=== PATIENT | female | born 1995 | race Caucasian/White ===

== ENCOUNTER 2019-12-30 14:27 | Emergency (ER) | payer MEDICAID, SELFPAY ==
--- NOTE | 2019-12-30 | US_ITS ---
EXAMINATION: ULTRASOUND CLINICAL INFORMATION: Lower pelvic pain COMPARISON: Pelvic ultrasound 12/07/2011 TECHNIQUE: Transabdominal ultrasound was performed. FINDINGS: A gestational sac is present with a pole. The fetus was active during the course of the scan and a normal heart rate of 156 bpm was noted. Tye-rump length was 5.32 cm corresponding to a gestational age of 12 weeks 0 days with an JEANCARLOS of 07/13/2020. Neither ovary could be seen. No free fluid was detected. IMPRESSION: Active viable fetus with mean gestational age best estimated at 12 weeks with an JEANCARLOS of 07/13/2020
[2019-12-30 14:44] VITALS: BP 122/66; PULSE 101; RESP 18; TEMP 37; O2SAT 100; BMI 28.3
[2019-12-30 17:33] VITALS: BP 103/57; PULSE 72; RESP 18; TEMP 35.9; O2SAT 99
--- NOTE | 2019-12-30 17:50 | ED.FEMALEGU ---
HPI - Female Genitourinary General Chief complaint: Abdominal Pain Stated complaint: abd pain Time Seen by Provider: 12/30/19 17:48 Source: patient Mode of arrival: ambulatory Limitations: no limitations History of Present Illness HPI Narrative: patient 12 weeks [id number] noticed for last 2 days lower abdominal discomfort with nausea and diarrhea having 4-5 loose bowels a day, without any vaginal bleeding or significant discharge patient is 6 months vaginal delivery patient denies any urinary complaints Related Data Previous Rx's Medication Instructions Recorded ondansetron 4 mg PO Q6H PRN #20 tab 12/30/19 Allergies Allergy/AdvReac Type Severity Reaction Status Date / Time ceftriaxone [From Rocephin] Allergy Angioedema Verified 12/30/19 14:43 Review of Systems Review of Systems: REVIEW OF SYSTEMS: Pertinent positives and negatives are stated above in the history. GEN: no fevers, chills, fatigue HEENT: no nasal congestion, sore throat, ear pain NEURO: no headache, dizziness, focal weakness PULM: no cough, shortness of breath CV: no chest pain, palpitations, LE edema ABD: no vomiting : no dysuria, urgency, frequency SKIN: no rash ROS otherwise negative x 10 PMFSH Past Medical History Medical History Healthy adult Social History Social History Alcohol intake: current Smoked in Last 30 Days: No Use of substances other than those prescribed or required for medical reasons: No Advance Directives: No Advance Directives Information Provided: No Physical Exam Vital Signs and I&O and Narrative: Vital Signs and I&O: Vital Signs Temp 98.3 F 12/30/19 19:02 Pulse 69 12/30/19 19:02 Resp 16 12/30/19 19:02 BP 102/53 L 12/30/19 19:02 Pulse Ox 100 12/30/19 19:02 Intake & Output 12/30/19 12/30/19 12/31/19 06:59 18:59 06:59 Intake Total 1000 / 1000 Balance 1000 / 1000 Weight 68.039 kg Intake: Intake, IV Amoun t 1000 / 1000 0.9 % Sodium C hloride 1,000 ml 1000 / 1000 @ 999 mls/hr I VCONT .Q1H1M JAZMIN Rx#:[id number] Body Mass Index 28.3 VITAL SIGNS: Reviewed. GENERAL: Well developed, well nourished, in no acute distress. HEAD: Normocephalic/atraumatic, Posterior oropharynx was without edema, erythema or exudate. EYES: PERRLA,, EOMI intact , no nystagmus/pallor/icterus noted EARS: Ext canals without abnormality, TMs non-bulging and non-erythematous NOSE: Nares patent bilateral OROPHARYNX: no oral lesions noted, posterior pharynx clear and non-erythematous without noted tonsillar enlargement/erythema/exudates NECK: Supple, no adenopathy LUNGS: Normal breath sounds. No adventitious sounds or accessory muscle use. CARDIOVASCULAR: Regular rate and rhythm without noted murmurs, no JVD or lower extremity edema. ABDOMEN: Soft, non-tender, non-distended with bowel sounds. No rigidity. No guarding. No palpable masses or hernias noted MUSCULOSKELETAL: No tenderness, deformities, or effusions noted on gross inspection. EXTREMITIES: No cyanosis, clubbing or edema. SKIN: Inspection of the skin reveals no rashes, ulcerations, jaundice, pallor, or petechiae NEUROLOGIC: Alert and oriented x 3. Strength and sensation to light touch were grossly intact x 4. Course Course Course Narrative: patient ultrasound showed IUP 12 weeks workup otherwise is negative patient is A-positive blood type will discharge her home advised to follow-up with her OB doctor. Patient's symptoms likely from gastroenteritis secondary to diarrhea having the lower abdominal cramps patient received 1 L of IV bolus in the ER MDM - Female Genitourinary Lab Data Result diagrams: 12/30/19 17:57 12/30/19 18:38 Labs: Lab Results 12/30/19 12/30/19 12/30/19 Range/Units 17:57 17:57 18:38 WBC 8.0 (4.8-10.8) X10*3/uL RBC 4.13 L (4.20-5.50) X10*6/uL Hgb 12.8 (12.0-16.0) g/dl Hct 36.6 L (37-47) % MCV 88.6 (80-98) fL MCH 31.0 (27.0-33.0) pg MCHC 35.0 (31.0-35.0) g/dl RDW 12.2 (11.0-16.0) % Plt Count 225 (160-400) X10*3/uL MPV 10.6 (9.4-12.3) fL Immature Gran % (Auto) 0.3 (0.0-0.4) % Neut % (Auto) 70.2 (45-73) % Lymph % (Auto) 23.7 (20-40) % Collin % (Auto) 5.1 (2-11) % Eos % (Auto) 0.3 (0-4) % Baso % (Auto) 0.4 (0-2) % Neut # (Auto) 5.6 (2.0-8.3) X10*3/uL Lymph # (Auto) 1.9 (1.2-4.9) X10*3/uL [place]lin # (Auto) 0.4 (0.1-1.2) X10*3/uL Eos # (Auto) 0.0 (0.0-0.4) X10*3/uL Baso # (Auto) 0.0 (0.0-0.2) X10*3/uL Abs Immat Gran (auto) 0.02 (0.00-0.03) X10*3/uL Absolute Nucleated RBC 0.000 (0.0-0.012) X10*3/uL Nucleated RBC % (auto) 0.0 (0.0-0.2) /100WBC Hold Blue Top SEE NOTE Sodium 138 (135-145) mmol/L Potassium 3.8 (3.3-5.1) mmol/l Chloride 107 (96-108) mmol/L Carbon Dioxide 23 (22-29) mmol/L Anion Gap 12 (12-20) BUN 9 (9-16) mg/dL Creatinine 0.68 (0.5-1.4) mg/dL Estim Creat Clear Calc 112.5 Estimated GFR > 60 Random Glucose 71 (60-115) mg/dL Calcium 8.8 (8.4-10.2) mg/dL Total Bilirubin 0.7 (0.0-1.0) mg/dL AST 17 (5-31) U/L ALT 16 (0-31) U/L Alkaline Phosphatase 48 (39-117) U/L Total Protein 6.4 L (6.5-8.0) g/dL Albumin 3.7 (3.5-5.0) g/dL Beta HCG, Quant [id number] mIU/mL Urine Color Urine Appearance Urine pH (5.0-8.0) Ur Specific [place] (1.005-1.025) Urine Protein (NEG-TRACE) MG/DL Urine Glucose (UA) (NEG) MG/DL Urine Ketones (NEG) MG/DL Urine Blood (NEG) Urine Nitrite (NEG) Ur Leukocyte Esterase (NEG) 12/30/19 Range/Units 21:22 WBC (4.8-10.8) X10*3/uL RBC (4.20-5.50) X10*6/uL Hgb (12.0-16.0) g/dl Hct (37-47) % MCV (80-98) fL MCH (27.0-33.0) pg MCHC (31.0-35.0) g/dl RDW (11.0-16.0) % Plt Count (160-400) X10*3/uL MPV (9.4-12.3) fL Immature Gran % (Auto) (0.0-0.4) % Neut % (Auto) (45-73) % Lymph % (Auto) (20-40) % [place]lin % (Auto) (2-11) % Eos % (Auto) (0-4) % Baso % (Auto) (0-2) % Neut # (Auto) (2.0-8.3) X10*3/uL Lymph # (Auto) (1.2-4.9) X10*3/uL [place] # (Auto) (0.1-1.2) X10*3/uL Eos # (Auto) (0.0-0.4) X10*3/uL Baso # (Auto) (0.0-0.2) X10*3/uL Abs Immat Gran (auto) (0.00-0.03) X10*3/uL Absolute Nucleated RBC (0.0-0.012) X10*3/uL Nucleated RBC % (auto) (0.0-0.2) /100WBC Hold Blue Top Sodium (135-145) mmol/L Potassium (3.3-5.1) mmol/l Chloride (96-108) mmol/L Carbon Dioxide (22-29) mmol/L Anion Gap (12-20) BUN (9-16) mg/dL Creatinine (0.5-1.4) mg/dL Estim Creat Clear Calc Estimated GFR Random Glucose (60-115) mg/dL Calcium (8.4-10.2) mg/dL Total Bilirubin (0.0-1.0) mg/dL AST (5-31) U/L ALT (0-31) U/L Alkaline Phosphatase (39-117) U/L Total Protein (6.5-8.0) g/dL Albumin (3.5-5.0) g/dL Beta HCG, Quant mIU/mL Urine Color YELLOW Urine Appearance CLEAR Urine pH 6.0 (5.0-8.0) Ur Specific [place] 1.025 (1.005-1.025) Urine Protein NEG (NEG-TRACE) MG/DL Urine Glucose (UA) NEG (NEG) MG/DL Urine Ketones 40 (NEG) MG/DL Urine Blood NEG (NEG) Urine Nitrite NEG (NEG) Ur Leukocyte Esterase NEG (NEG) Discharge Plan Discharge Clinical Impression: Gastroenteritis, First trimester Patient Disposition: Home, Self-Care Instructions: Gastroenteritis (ED), Abdominal Pain in (ED) Prescriptions: New ondansetron 4 mg tablet,disintegrating 4 mg PO Q6H PRN (Reason: nausea and vomiting) Qty: 20 RF: 0 Referrals: Andrey Blackwood MD [Physician] - 2 days Interventions: ED Discharge Assessment Last Done: 12/30/19 22:01 Discharge Date/Time: 12/30/19 22:02
[2019-12-30 18:10] LABS: MANUAL DIFF FLAG NO
[2019-12-30 18:13] LABS: Basophils Percent Auto 0.4 % (0-2); Eosinophils Percent Auto 0.3 % (0-4); Hematocrit 36.6 % (37-47); Hemoglobin 12.8 g/dl (12.0-16.0); Imm Gran Abs Auto 0.02 X10*3/uL (0.00-0.03); Imm Gran Pct Auto 0.3 % (0.0-0.4); Lymphocytes Absolute Auto 1.9 X10*3/uL (1.2-4.9); Lymphocytes Percent Auto 23.7 % (20-40); Mean Corpuscular Volume 88.6 fL (80-98); Mean Platelet Volume 10.6 fL (9.4-12.3); Monocytes Absolute Auto 0.4 X10*3/uL (0.1-1.2); Monocytes Percent Auto 5.1 % (2-11); Neutrophils Absolute Auto 5.6 X10*3/uL (2.0-8.3); Neutrophils Percent Auto 70.2 % (45-73); Platelet Count 225 X10*3/uL (160-400); Red Blood Count 4.13 X10*6/uL (4.20-5.50); Red Cell Distribution Width 12.2 % (11.0-16.0)
[2019-12-30] MEDS: ondansetron HCL 4 MG/2 ML VIAL IVPUSH (19:01)
[2019-12-30] MEDS: 0.9 % Sodium Chloride 1,000 ML 999 ML IVCONT (19:01)
[2019-12-30 19:02] VITALS: BP 102/53; PULSE 69; RESP 16; TEMP 36.8; O2SAT 100
[2019-12-30 19:21] LABS: Alanine Aminotransferase 16 U/L (0-31); Albumin Level 3.7 g/dL (3.5-5.0); Alkaline Phosphatase 48 U/L (39-117); Anion Gap 12 (12-20); Aspartate Amino Transferase 17 U/L (5-31); Bilirubin Total 0.7 mg/dL (0.0-1.0); Blood Urea Nitrogen 9 mg/dL (9-16); Calcium 8.8 mg/dL (8.4-10.2); Carbon Dioxide 23 mmol/L (22-29); Chloride 107 mmol/L (96-108); Creatinine Clr Calc Pharmacy 112.5; Estimated Glomerular Filt Rate > 60; Glucose Random 71 mg/dL (60-115); Potassium 3.8 mmol/l (3.3-5.1); Sodium 138 mmol/L (135-145); Total Protein 6.4 g/dL (6.5-8.0)
--- NOTE | 2019-12-30 21:00 | PC.NURSE ---
PT TOERATING PO INTAKE W/OUT DIFFICULTY, NO COMPLAINTS ATT, PT AWAITING PROVIDER RE-EVAL AND DISPO.
[2019-12-30 21:29] LABS: Glucose Urine UA NEG (NEG); Leukocyte Esterase Urine NEG (NEG); Nitrite Urine NEG (NEG); Specific Gravity - Urine 1.025 (1.005-1.025); Urine Blood NEG (NEG); Urine Ketones 40 MG/DL (NEG); Urine Protein NEG (NEG-TRACE)
[2019-12-30 21:30] LABS: Appearance Urine CLEAR; Color Urine YELLOW; UACC Culture Trigger NO
== END 2019-12-30 22:02 | disposition home or self-care (01) ==
PROVIDERS: Emergency Provider Internal Medicine
DX: O99.611 Diseases of the digestive system complicating pregnancy, first trimester (principal)
CPT/HCPCS: 36415; 76801; 80053; 81003; 84702; 85025; 96361; 96374; 99284; J2405

== ENCOUNTER 2022-02-20 15:06 | Emergency (ER) | payer MEDICAID, SELFPAY ==
--- NOTE | 2022-02-20 16:58 | ED.GENADULT ---
HPI - General Adult General Chief complaint: Abdominal Pain <KELLEY Romo Last Filed: 02/20/22 16:59> Stated complaint: flu like symptoms <KELLEY Romo Last Filed: 02/20/22 16:59> Time Seen by Provider: 02/20/22 17:01 <KELLEY Romo Last Filed: 02/20/22 16:59> Source: patient <KELLEY Nichole Last Filed: 02/20/22 18:23> Mode of arrival: ambulatory <KELLEY Nichole Last Filed: 02/20/22 18:23> Limitations: no limitations <KELLEY Nichole Last Filed: 02/20/22 18:23> History of Present Illness HPI narrative: 26-year-old female presents to the ER for evaluation of diffuse abdominal pain, nausea, vomiting and diarrhea that started yesterday. She reports pain is in her entire abdomen, her lower pelvic area as well as her back. She just started her menses and has uterine cramping. She denies any vaginal discharge or concern for STI. She denies any dysuria, urgency or frequency. She states she has been nauseous with inability to eat for the last 2 days. She vomited twice yesterday, none today. She has been able to tolerate small amounts of Gatorade but then has to run to the bathroom to have diarrhea. No blood in her stool. No known sick contacts. He denies chance of , says she has a 4-month-old baby at home. <KELLEY Nichole Last Filed: 02/20/22 18:23> MD complaint: Abdominal pain along with nausea, vomiting and diarrhea <KELLEY Nichole Last Filed: 02/20/22 18:23> Onset (ago): day(s) (2) <KELLEY Nichole Last Filed: 02/20/22 18:23> Location: abdomen <KELLEY Nichole Last Filed: 02/20/22 18:23> Radiation: non-radiation <KELLEY Nichole Last Filed: 02/20/22 18:23> Severity: moderate <KELLEY Nichole Last Filed: 02/20/22 18:23> Quality: aching and other (cramping) <KELLEY Nichole Last Filed: 02/20/22 18:23> Pain Consistency: intermittent <KELLEY Nichole Last Filed: 02/20/22 18:23> Relieving factors: none <KELLEY Nichole Last Filed: 02/20/22 18:23> Exacerbating factors: none <KELLEY Nichole Last Filed: 02/20/22 18:23> Associated symptoms: loss of appetite, malaise, nausea/vomiting, weakness and other (body aches in legs) <KELLEY Nichole Last Filed: 02/20/22 18:23> Treatments prior to arrival: none <KELLEY Nichole Last Filed: 02/20/22 18:23> Related Data Home medications: Previous Rx's Medication Instructions Recorded ondansetron 4 mg disintegrating 4 mg PO Q6H PRN nausea and 12/30/19 tablet vomiting #20 tabs <KELLEY Romo Last Filed: 02/20/22 16:59> Allergies/adverse reactions: Allergies Allergy/AdvReac Type Severity Reaction Status Date / Time ceftriaxone [From Rocephin] Allergy Angioedema Verified 12/30/19 14:43 <KELLEY Romo Last Filed: 02/20/22 16:59> Review of Systems Review of Systems: Constitutional: No Fever, No Chills ENT/Mouth: No sore throat, No Rhinorrhea, No Swallowing Difficulty Eyes: No Eye Pain, No Swelling, No Redness Cardiovascular: No Chest Pain, No SOB, No Orthopnea, No Edema Respiratory: No Cough, No Sputum, No Wheezing, No dyspnea Gastrointestinal: + Nausea, + Vomiting, + Diarrhea, + abdominal Pain Genitourinary: No Dysuria, No Urinary Frequency, No Hematuria Musculoskeletal: No joint pain, + Myalgias Skin: No Skin Lesions, No rash Neuro: + Weakness, No Numbness, No Dizziness, No Headache Heme/Lymph: No Bruising, No Lymphadenopathy Endocrine: No Polyuria, No Polydipsia <KELLEY Nichole Last Filed: 02/20/22 18:23> [facility] Past Medical History Medical History: Medical History Healthy adult <KELLEY Romo Last Filed: 02/20/22 16:59> Social History Social History: Social History Alcohol intake: current Advance Directives: No Advance Directives Information Provided: No <KELLEY Romo Last Filed: 02/20/22 16:59> Physical Exam ED Vital Signs: Vital Signs - 24 hr 02/20/22 17:02 Temperature 98.5 F Pulse Rate 95 Respiratory Rate 18 Blood Pressure 112/75 Pulse Oximetry 100 Oxygen Delivery Method Room Air BMI result Body Mass Index 29.4 <KELLEY Romo - Last Filed: 02/20/22 16:59> Vital Signs - 24 hr 02/20/22 17:02 Temperature 98.5 F Pulse Rate 95 Respiratory Rate 18 Blood Pressure 112/75 Pulse Oximetry 100 Oxygen Delivery Method Room Air BMI result Body Mass Index 29.4 <KELLEY Nichole Last Filed: 02/20/22 18:23> Appearance: Alert. Oriented X3. No acute distress. Eyes: Pupils equal, round and reactive to light. ENT: Pharynx normal. Moist mucous membranes Neck: Normal inspection. Neck supple. CVS: Normal heart rate and rhythm. Pulses normal. Respiratory: No respiratory distress. Breath sounds normal. Abdomen: Soft with mild diffuse tenderness, no rebound or guarding. normal +BS x4. Pelvic deferred. No suprapubic tenderness. Skin: Skin warm and dry. Normal skin color. Normal skin turgor. No rashes. Extremities: No lower extremity edema. Neuro: Oriented X 3. Grossly normal, nonfocal <KELLEY Nichole Last Filed: 02/20/22 18:23> Course Reevaluation(s) Reevaluation #1: 26 year old female no pmhx presents w/ fatigue, malaise, subjective fevers & chills, abd pain, nausea, pelvic pain, and lower back pain PE benign Plan- patient will go to [facility] [place] here to grab her <KELLEY Romo - Last Filed: 02/20/22 16:59> Time: 16:59 <KELLEY Romo - Last Filed: 02/20/22 16:59> Reevaluation #2: Patient with multiple complaints including diffuse abdominal pain, nausea, vomiting, diarrhea x2 days. She is on her period. Denies chance of . Will get basic labs, check COVID, Flu, and hydrate with IVF, give zofran. Pelvic deferred, pain c/w period cramps. No vaginal discharge or concern for STI/PID. <KELLEY Nichole - Last Filed: 02/20/22 18:23> Time: 17:49 <KELLEY Nichole - Last Filed: 02/20/22 18:23> Reevaluation #3: Labs pending. IVF infusing. Will sign out to night provider. <KELLEY Nichole - Last Filed: 02/20/22 18:23> Time: 18:22 <KELLEY Nichole - Last Filed: 02/20/22 18:23> Medications Administered Generic Name Dose Route Start Last Admin Trade Name Freq PRN Reason Stop Dose Admin Sodium Chloride 1,000 mls @ 999 mls/hr 02/20/22 18:00 02/20/22 18:13 Ns IVCONT 02/20/22 19:00 999 mls/hr .Q1H1M JAZMIN Administration Discontinued Medications Generic Name Dose Route Start Last Admin Trade Name Freq PRN Reason Stop Dose Admin Ondansetron HCl 4 mg 02/20/22 17:46 02/20/22 18:11 Ondansetron Hcl 4 Mg/2 Ml Vial IVPUSH 02/20/22 17:47 4 mg ONCE ONE Administration <KELLEY Romo - Last Filed: 02/20/22 16:59> Medications Administered Generic Name Dose Route Start Last Admin Trade Name Freq PRN Reason Stop Dose Admin Sodium Chloride 1,000 mls @ 999 mls/hr 02/20/22 18:00 02/20/22 18:13 Ns IVCONT 02/20/22 19:00 999 mls/hr .Q1H1M JAZMIN Administration Discontinued Medications Generic Name Dose Route Start Last Admin Trade Name Freq PRN Reason Stop Dose Admin Ondansetron HCl 4 mg 02/20/22 17:46 02/20/22 18:11 Ondansetron Hcl 4 Mg/2 Ml Vial IVPUSH 02/20/22 17:47 4 mg ONCE ONE Administration <KELLEY Nichole Last Filed: 02/20/22 18:23> Medical Decision Making Lab Data Result diagrams: : 02/20/22 18:05 02/20/22 18:05 <KELLEY Romo Last Filed: 02/20/22 16:59> Critical Care Time Critical Care Time Critical Care Time: No <KELLEY Nichole Last Filed: 02/20/22 18:23> Discharge Plan Discharge Clinical Impression: Gastroenteritis <KELLEY Romo Last Filed: 02/20/22 16:59> Patient Disposition: Still a Patient <KELLEY Romo Last Filed: 02/20/22 16:59> Instructions: Gastroenteritis (ED) <KELLEY Romo Last Filed: 02/20/22 16:59> Additional Instructions: You lab workup today was unremarkable. Your urine test was negative for infection and . You most likely have a viral GI bug also known as gastroenteritis. Treatment is supportive care, symptoms usually resolve on their own in 48-72 hours. Recommend rest and plenty of oral hydration. Stick to a bland diet like soup and toast while you are not feeling well. Take the prescribed medication as needed for nausea. Recommend over the counter Pepto Bismol or Imodium for upset stomach and diarrhea. Follow up with your doctor as needed. If you develop new or worsening symptoms call 911 or come back to the ER for further evaluation. <KELLEY Romo Last Filed: 02/20/22 16:59> Prescriptions: No Action ondansetron 4 mg tablet,disintegrating 4 mg PO Q6H PRN (Reason: nausea and vomiting) Qty: 20 0RF <KELLEY Romo Last Filed: 02/20/22 16:59>
[2022-02-20 17:02] VITALS: BP 112/75; PULSE 95; RESP 18; TEMP 36.9; O2SAT 100; BMI 29.4
[2022-02-20 18:09] LABS: MANUAL DIFF FLAG NO
[2022-02-20] MEDS: ondansetron HCL 4 MG/2 ML VIAL IVPUSH (18:11)
[2022-02-20] MEDS: 0.9 % Sodium Chloride 1,000 ML 999 ML IVCONT (18:13)
[2022-02-20 18:28] LABS: Influenza A PCR NEGATIVE (Negative); Influenza B PCR NEGATIVE (Negative); Resp Syncy Virus RNA Qual PCR NEGATIVE (Negative); SARS COV2 PCR INHOUSE NEGATIVE (Negative)
[2022-02-20 18:30] LABS: Alanine Aminotransferase 23 U/L (0-31); Albumin Level 4.6 g/dL (3.5-5.0); Alkaline Phosphatase 68 U/L (39-117); Anion Gap 16 (12-20); Aspartate Amino Transferase 26 U/L (5-31); Bilirubin Direct 0.3 mg/dL (0.0-0.5); Bilirubin Total 0.8 mg/dL (0.0-1.0); Blood Urea Nitrogen 10 mg/dL (9-16); Calcium 9.8 mg/dL (8.4-10.2); Carbon Dioxide 20 mmol/L (22-29); Chloride 107 mmol/L (96-108); Creatinine Clr Calc Pharmacy 92.3; Estimated Glomerular Filt Rate > 60; Glucose Random 93 mg/dL (60-115); Lipase 36 U/L (8-78); Sodium 139 mmol/L (135-145)
[2022-02-20 18:31] LABS: Basophils Percent Auto 0.2 % (0-2); Hematocrit 45.6 % (37.0-47.0); Hemoglobin 14.7 g/dl (12.0-16.0); Imm Gran Abs Auto 0.01 X10*3/uL (0.00-0.03); Imm Gran Pct Auto 0.2 % (0.0-0.4); Lymphocytes Absolute Auto 0.8 X10*3/uL (1.2-4.9); Lymphocytes Percent Auto 20.2 % (20-40); Mean Corpuscular HGB Conc 32.2 g/dl (31.0-35.0); Mean Corpuscular Hemoglobin 28.2 pg (27.0-33.0); Mean Corpuscular Volume 87.4 fL (80.0-98.0); Mean Platelet Volume 10.5 fL (9.4-12.3); Monocytes Absolute Auto 0.2 X10*3/uL (0.1-1.2); Monocytes Percent Auto 5.7 % (2-11); Neutrophils Percent Auto 73.7 % (45-73); Platelet Count 206 X10*3/uL (160-400); Red Blood Count 5.22 X10*6/uL (4.20-5.50); Red Cell Distribution Width 13.1 % (11.0-16.0); White Blood Count 4.1 X10*3/uL (4.8-10.8)
[2022-02-20 18:37] LABS: UPreg QC Valid YES; Urine Pregnancy NEGATIVE (NEGATIVE)
[2022-02-20 18:40] LABS: Appearance Urine Clear; Color Urine Dark Yellow; Glucose Urine UA Negative (Negative); Leukocyte Esterase Urine Trace (Negative); Nitrite Urine Negative (Negative); UMIC TRIGGER UACC YES; Urine Blood Large (3+) (Negative); Urine Ketones Negative (Negative); Urine Protein 30 (1+) mg/dL (Neg-Trace)
[2022-02-20 18:41] LABS: Bacteria Urine Trace (None Seen); Hyaline Casts Urine 0-2 /LPF (0-2); RBC Urine >20 /HPF (0-2); UACC Culture Trigger YES
[2022-02-20] MEDS: Acetaminophen 325 MG TABLET 650 MG PO (18:58)
== END 2022-02-20 20:03 | disposition home or self-care (01) ==
PROVIDERS: Physician Assistant; Emergency Provider Internal Medicine
DX: K52.9 Noninfective gastroenteritis and colitis, unspecified (principal); R10.9 Unspecified abdominal pain; Z20.822 Contact with and (suspected) exposure to COVID-19
CPT/HCPCS: 0241U; 36415; 80048; 80076; 81001; 81025; 83690; 83735; 85025; 87086; 87147; 96374; 99284; J2405

== ENCOUNTER 2022-04-20 22:37 | Emergency (ER) | payer MEDICAID, SELFPAY ==
[2022-04-20 22:48] VITALS: BP 113/70; PULSE 107; RESP 18; TEMP 36.9; O2SAT 100; BMI 28.9
[2022-04-20 23:50] LABS: COVID-19 Test Negative (Negative); IDNOW Serial# 16C4AD1C; IDNOW Serial# BCCEAD1C; Influenza A Negative (Negative); Influenza B2 Negative (Negative)
--- NOTE | 2022-04-20 23:53 | ED.GENADULT ---
HPI - General Adult General Chief complaint: Nausea/Vomiting/Diarrhea Stated complaint: flu like symptoms Time Seen by Provider: 04/20/22 23:37 Source: patient Mode of arrival: ambulatory Limitations: no limitations History of Present Illness HPI narrative: Patient vomiting and having diarrhea since a.m. about 7-10 times each with diffuse abdominal cramps note recent travel no fever or chills no blood in the stool patient had cold symptoms 2 days ago much better now Related Data Previous Rx's Medication Instructions Recorded ondansetron 4 mg disintegrating 4 mg PO Q6H PRN nausea and 12/30/19 tablet vomiting #20 tabs dicyclomine 20 mg tablet 20 mg PO QID PRN abdominal pain 04/21/22 #20 tabs ondansetron 4 mg disintegrating 4 mg PO Q6-8H PRN nausea and 04/21/22 tablet vomiting #10 tabs Allergies Allergy/AdvReac Type Severity Reaction Status Date / Time ceftriaxone [From Rocephin] Allergy Angioedema Verified 12/30/19 14:43 Review of Systems Review of Systems: Yes all other systems are reviewed and are negative [facility] Past Medical History Medical History Healthy adult Social History Social History Alcohol intake: unknown Advance Directives: No Advance Directives Information Provided: No Physical Exam ED Vital Signs: Vital Signs - 24 hr 04/20/22 22:48 04/21/22 00:14 04/21/22 01:44 Temperature 98.4 F 98.3 F 98.3 F Pulse Rate 107 H 88 94 Respiratory Rate 18 14 16 Blood Pressure 113/70 117/68 103/52 L Pulse Oximetry 100 98 98 Oxygen Delivery Method Room Air Room Air Room Air BMI result Body Mass Index 28.9 Appearance: Alert. Oriented X3. No acute distress. Eyes: PERRLA, No Nystagmus ENT: Pharynx normal. Oral Mucosa moist Neck: Normal inspection. Neck supple. CVS: Normal heart rate and rhythm. Pulses normal. Respiratory: No respiratory distress. Equal air entry bilateral, no wheezing/rales/rhonchi Abdomen: Soft , diffuse abdominal tenderness. Bowel sounds are present, no mass palpable, no CVA tenderness Skin: Skin warm and dry. Normal skin color. Normal skin turgor. Extremities: No lower extremity edema. No calf tenderness Neuro: Oriented X 3. Medications Administered Discontinued Medications Generic Name Dose Route Start Last Admin Trade Name Niki PRN Reason Stop Dose Admin Dicyclomine HCl 20 mg 04/21/22 01:44 04/21/22 02:20 Dicyclomine Hcl 10 Mg Capsule PO 04/21/22 01:45 20 mg ONCE ONE Administration Loperamide HCl 2 mg 04/20/22 23:58 04/21/22 00:12 Loperamide Hcl 2 Mg Capsule PO 04/20/22 23:59 2 mg ONCE ONE Administration Ondansetron HCl 4 mg 04/20/22 23:58 04/21/22 00:12 Ondansetron Odt 4 Mg Tab.Rapdis TRANSLINGU 04/20/22 23:59 4 mg ONCE ONE Administration Medical Decision Making Medical Decision Making [facility] Narrative: Patient likely with viral gastroenteritis felt better after Zofran and Bentyl taking p.o. fluids will discharge patient home Lab Data Labs: Lab Results 04/20/22 04/20/22 04/21/22 Range/Units 23:31 23:31 01:29 Urine Color Yellow Urine Appearance Clear Urine pH 5.5 (5.0-9.0) Ur Specific [place] >= 1.030 H (1.005-1.025) Urine Protein Trace (Neg-Trace) mg/dL Urine Glucose (UA) Negative (Negative) mg/dL Urine Ketones Trace (Negative) mg/dL Urine Blood Small (1+) H (Negative) Urine Nitrite Negative (Negative) Ur Leukocyte Esterase Negative (Negative) Urine RBC 3-5 H (0-2) /HPF Urine WBC 0-5 (0-5) /HPF Ur Squamous Epith Cells 3-5 (0-2) /HPF Urine Bacteria None Seen (None Seen) Hyaline Casts 0-2 (0-2) /LPF COVID-19 (IAM) Negative (Negative) COVID-19 Clin Com See Note Influenza Type A (ARSH) Negative (Negative) Influenza Type B (ARSH) Negative (Negative) Influenza A & B Note See Note Discharge Plan Discharge Clinical Impression: Gastroenteritis Patient Disposition: Home, Self-Care Instructions: Gastroenteritis (ED) Additional Instructions: Drink plenty of fluids Medicine for the nausea as advised Bentyl for abdominal cramps Follow with PCP if any concerns Prescriptions: New dicyclomine 20 mg tablet 20 mg PO QID PRN (Reason: abdominal pain) Qty: 20 0RF ondansetron 4 mg tablet,disintegrating 4 mg PO Q6-8H PRN (Reason: nausea and vomiting) Qty: 10 0RF No Action ondansetron 4 mg tablet,disintegrating 4 mg PO Q6H PRN (Reason: nausea and vomiting) Qty: 20 0RF Stand Alone Forms: Work/School Release Interventions: ED Discharge Assessment Last Done: 04/21/22 02:26 Discharge Date/Time: 04/21/22 02:26
--- OUTSIDE RECORDS SUMMARY | 2022-04-20 23:58 | XMS_ITS | Continuity of Care Document ---
:1995 Author Organization [facility] Address [address] [place] [address] [address] [place] [address]- Care Team Providers Name Role Phone Not on Staff, PCP Primary Care Physician Unavailable Encounter [facility] Date(s): 08/12/21 - 09/11/[address] [place], [place] [address] Allergies, Adverse Reactions, Alerts Substance Reaction Severity Status Rocephin Active Immunizations Given and Recorded Vaccine Date Status Refusal Reason tetanus/diphtheria/pertussis, acel(Tdap) 08/18/21 Given Medications ferrous sulfate 325 mg oral enteric coated tablet 325 mg, 1, tablet, By Mouth, Daily, # 90 tablet, Refills 0, Tot. Refills 0, Maintenance, 08/28/21 17:19:00 EDT, Route to Pharmacy Electronically, [id number], Partial fill upon patient request if the prescription is for a schedule II o... Start Date: 08/28/21 Status: Orderedmultivitamin, Multivitamins oral tablet, chewable 1 tablet, Chew, Daily, # 90 tablet, 2 Refills, Maintenance, 08/03/21 14:02:00 EDT, Chew Tablet, [facility] #[id number], Partial fill upon patient request if the prescription is for a schedule II opioid drug., 1 tablet Chew Daily, 154.94, cm, 07/24... Start Date: 08/03/21 Status: OrderedPrenatal Multivitamins By Mouth, Daily, 0 Refills, Maintenance, 07/26/21 19:37:00 EDT, Partial fill upon patient request ifthe prescription is for a schedule II opioid drug. Start Date: 07/26/21 Status: Orderedprogesterone 200 mg oral capsule See Instructions, Place 1 capsule in the vagina every night, # 90 capsule, 1 Refills, Maintenance, 07/28/21 19:02:00 EDT, [facility] #[id number], 70.5, kg, 07/26/21 19:32:00 EDT, Dry Weight Start Date: 07/28/21 Status: Ordered Problem List Condition Effective Dates Status Health Status Informant History of section(Confirmed) Active History of delivery(Confirmed) Active Obese class I(Confirmed) Active COVID-19 vaccination Active declined(Confirmed) Social History Social History Type Response Smoking Status Never (less than 100 in life time) entered on: 07/26/21 Sex
--- OUTSIDE RECORDS SUMMARY | 2022-04-20 23:58 | XMS_ITS | Continuity of Care Document ---
:1995 Author Organization [facility] Address [address] [place] [address]- Care Team Providers Name Role Phone Not on Staff, PCP Primary Care Physician Unavailable [facility] Date[facility]): 09[facility] - 11/20/[address] [address]- Attending Physician: Not on Staff, Attending MD Allergies, Adverse Reactions, Alerts Substance Reaction Severity Status Rocephin destin Active Anaphylaxis Immunizations Given and Recorded Vaccine Date Status Refusal Reason tetanus/diphtheria/pertussis, acel(Tdap) 08/18/21 Given Medications ferrous sulfate 325 mg oral enteric coated tablet 325 mg, 1, tablet, By Mouth, Daily, # 90 tablet, Refills 0, Tot. Refills 0, Maintenance, 08/28/21 17:19:00 EDT, Route to Pharmacy Electronically, [facility] #[id number], Partial fill upon patient request if the prescription is for a schedule II o... Start Date: 08/28/21 Status: Orderedmultivitamin, Multivitamins oral tablet, chewable 1 tablet, Chew, Daily, # 90 tablet, 2 Refills, Maintenance, 08/03/21 14:02:00 EDT, Chew Tablet, [facility] #[id number], Partial fill upon patient request if the prescription is for a schedule II opioid drug., 1 tablet Chew Daily, 154.94, cm, 07/24... Start Date: 08/03/21 Status: Ordered Problem List Condition Effective Dates Status Health Status Informant History of section(Confirmed) Active History of delivery(Confirmed) Active Obese class I(Confirmed) Active COVID-19 vaccination Active declined(Confirmed) Social History Social History Type Response Smoking Status Never (less than 100 in life time) entered on: 07/26/21 Sex Care Team PersonnelName: Not on Staff, PCP
--- OUTSIDE RECORDS SUMMARY | 2022-04-20 23:58 | XMS_ITS | Continuity of Care Document ---
:1995 Author Organization [facility] Address [address] [place] [address]- Care Team Providers Name Role Phone Not on Staff, PCP Primary Care Physician Unavailable [facility] Date(s): 08/11/21 - 08/18/[address] [id number] Encounter Diagnosis Other specified related conditions, second trimester (Final) - Discharge Disposition: A-D/C Home Attending Physician: Keya Gomez MD Admitting Physician: Patricia ANTOINE, Keya Dey Allergies, Adverse Reactions, Alerts Substance Reaction Severity Status Rocephin Active Immunizations Given and Recorded Vaccine Date Status Refusal Reason tetanus/diphtheria/pertussis, acel(Tdap) 08/18/21 Given Medications multivitamin, Multivitamins oral tablet, chewable 1 tablet, Chew, Daily, # 90 tablet, 2 Refills, Maintenance, 08/03/21 14:02:00 EDT, Chew Tablet, [facility] #[id number], Partial fill upon patient request if the [...] capsule, 1 Refills, Maintenance, 07/28/21 19:02:00 EDT, [facility] #[id number], 70.5, kg, 07/26/21 19:32:00 EDT, Dry Weight Start Date: 07/28/21 Status: Ordered Problem List Condition Effective Dates Status Health Status Informant History of section(Confirmed) Active History of delivery(Confirmed) Active Obese class I(Confirmed) Active COVID-19 vaccination Active declined(Confirmed) Results Orders for Microbiology Reports Name Date Urine Culture 08/11/21 Microbiology Reports TEST:Urine Culture STATUS:Auth (Verified) BODY SITE: SOURCE:CLEAN COLLECTED DATE/TIME:08/11/21 5:19 PMUrine Culture SPECIMEN DESCRIPTION : CLEAN CATCH (URINE) SPECIAL REQUESTS : NONE CULTURE : NO GROWTH REPORT STATUS : FINAL 08/12/2021 Vital Signs Most recent to oldest [Reference Range]: 1 Weight 73.2 kg (08/11/21 4:38 PM) Oxygen Saturation [94-100 %] 100 % (08/11/21 5:09 PM) Blood Pressure [90-138/55-84 mm Hg] 108/54 mm Hg (08/11/21 5:09 PM) Respiratory Rate [16-30 br/min] 18 br/min (08/11/21 5:09 PM) Temperature [96.8-100.4 DegF] 98.6 DegF (08/11/21 4:38 PM) Mode of Delivery (Oxygen) Room air (08/11/21 5:09 PM) Blood pressure sites Arm, right (08/11/21 5:09 PM) Temperature Route Oral (08/11/21 4:38 PM) Weight Obtained Via Standing scale (08/11/21 4:38 PM) Social History Social History Type Response Smoking Status Never (less than 100 in life time) entered on: 07/26/21 Sex
--- OUTSIDE RECORDS SUMMARY | 2022-04-20 23:58 | XMS_ITS | Continuity of Care Document ---
:1995 Author Organization [facility] Address [address] [place] [address], [address] [place] [address]- Care Team Providers Name Role Phone Not on Staff, PCP Primary Care Physician Unavailable Encounter [facility] Date(s): 07/18/21 - 08/17/21 [facility] [address] [place] [address], [address] [place] [id number] Allergies, Adverse Reactions, Alerts Substance Reaction Severity Status Rocephin Active Medications multivitamin, Multivitamins oral tablet, chewable 1 tablet, Chew, Daily, # 90 tablet, 2 Refills, Maintenance, 08/03/21 14:02:00 EDT, Chew Tablet, [facility] #[id number], Partial fill upon patient request if the [...] capsule, 1 Refills, Maintenance, 07/28/21 19:02:00 EDT, [facility] #[id number], 70.5, kg, 07/26/21 19:32:00 EDT, Dry Weight Start Date: 07/28/21 Status: Ordered Problem List Condition Effective Dates Status Health Status Informant History of section(Confirmed) Active History of delivery(Confirmed) Active COVID-19 vaccination Active declined(Confirmed) Social History Social History Type Response Smoking Status Never (less than 100 in life time) entered on: 07/26/21 Sex
--- OUTSIDE RECORDS SUMMARY | 2022-04-20 23:58 | XMS_ITS | Continuity of Care Document ---
:1995 Author Organization [facility] Address [address] [place] [address]- Care Team Providers Name Role Phone Not on Staff, PCP Primary Care Physician Unavailable [facility] Date[facility]s): 10/12/21 - 10/14/[address] [address] Discharge Disposition: A-D/C Home Attending Physician: Dolores Giron MD Admitting Physician: Dolores Giron MD Referring Physician: Dolores Giron MD Allergies, Adverse Reactions, Alerts Substance Reaction Severity Status Rocephin Active Immunizations Given and Recorded Vaccine Date Status Refusal Reason tetanus/diphtheria/pertussis, acel(Tdap) 08/18/21 Given Medications ferrous sulfate 325 mg oral enteric coated tablet 325 mg, 1, tablet, By Mouth, Daily, # 90 tablet, Refills 0, Tot. Refills 0, Maintenance, 08/28/21 17:19:00 EDT, Route to Pharmacy Electronically, [facility] #[id number], Partial fill upon patient request if the prescription is for a schedule II o... Start Date: 08/28/21 Status: OrderedIbuprofen Tablet 800 mg, Tablet, By Mouth, Every 8 hours, PRN for Pain , Moderate, (4-6), may give 400mg per patient preference and re-dose with 400mg within 8 hours if needed. Patient should only receive a total of 800mg of Ibuprofen every 8 hours., Routine, ... Start Date: 10/12/21 Stop Date: 10/15/21 Status: Discontinuedmultivitamin, Multivitamins oral tablet, chewable 1 tablet, Chew, Daily, # 90 tablet, 2 Refills, Maintenance, 08/03/21 14:02:00 EDT, Chew Tablet, [facility][id number], Partial fill upon patient request if the prescription is for a schedule II opioid drug., 1 tablet Chew Daily, 154.94, cm, 07/24... Start Date: 08/03/21 Status: Ordered Problem List Condition Effective Dates Status Health Status Informant History of section(Confirmed) Active History of delivery(Confirmed) Active Obese class I(Confirmed) Active COVID-19 vaccination Active declined(Confirmed) Vital Signs Most recent to oldest 1 2 3 [Reference Range]: Height 155 cm 155 cm 155 cm (10/13/21 11:36 PM) (10/12/21 6:20 AM) (10/11/21 9: 04 PM) Weight 74.3 kg 74.3 kg (10/12/21 6:20 AM) (10/11/21 8:45 PM) Oxygen Saturation [94-100 %] 100 % 98 % 99 % (10/14/21 7:49 AM) (10/13/21 11:36 PM) (10/13/21 4: 30 PM) Pulse Rate [55-90 bpm] 52 bpm 85 bpm 72 bpm *L* (10/13/21 11:36 PM) (10/13/21 4:30 PM) (10/14/21 7:49 AM) Body Mass Index [18.5-24.99] 30.93 *>HHI* (10/12/21 6:20 AM) Blood Pressure [90-138/55-84 107/63 mm Hg 106/57 mm Hg 118 /78 mm Hg mm Hg] (10/14/21 7:49 AM) (10/13/21 11:36 PM) (10/13/21 4: 30 PM) Respiratory Rate [16-30 16 br/min 16 br/min 16 br/mi n br/min] (10/14/21 8:06 AM) (10/14/21 7:49 AM) (10/14/21 3:0 0 AM) Temperature [96.8-100.4 DegF] 97.9 DegF 98.8 DegF 98 .3 DegF (10/14/21 7:49 AM) (10/13/21 11:36 PM) (10/13/21 9: 00 AM) Mode of Delivery (Oxygen) Room air Room air Room a ir (10/13/21 4:30 PM) (10/13/21 9:00 AM) (10/12/21 9:1 5 PM) Blood pressure sites Arm, left Arm, left Arm, left (10/13/21 11:36 PM) (10/13/21 4:30 PM) (10/13/21 9: 00 AM) Temperature Route Oral Oral Oral (10/14/21 7:49 AM) (10/13/21 11:36 PM) (10/13/21 9: 00 AM) Dry Weight 74.3 kg 74.3 kg (10/12/21 6:20 AM) (10/11/21 8:45 PM) Weight Obtained Via Standing scale Standing scale (10/12/21 6:20 AM) (10/11/21 8:45 PM) Dry Weight Obtained Via Standing scale Standing scale (10/12/21 6:20 AM) (10/11/21 8:45 PM) Social History Social History Type Response Smoking Status Never (less than 100 in life time) entered on: 07/26/21 Sex Female
--- OUTSIDE RECORDS SUMMARY | 2022-04-20 23:58 | XMS_ITS | Continuity of Care Document ---
:1995 Author Organization [facility] Address [address] [place] [address]- Care Team Providers Name Role Phone Not on Staff, PCP Primary Care Physician Unavailable [facility] Date(s): 08/12/21 - 09/11/21 [facility] [address] [place] [address] Attending Physician: Salazar Marin Admitting Physician: Salazar Marin Referring Physician: AdmtrSalazar Allergies, Adverse Reactions, Alerts Substance Reaction Severity Status Rocephin Active Immunizations Given and Recorded Vaccine Date Status Refusal Reason tetanus/diphtheria/pertussis, acel(Tdap) 08/18/21 Given Medications ferrous sulfate 325 mg oral enteric coated tablet 325 mg, 1, tablet, By Mouth, Daily, # 90 tablet, Refills 0, Tot. Refills 0, Maintenance, 08/28/21 17:19:00 EDT, Route to Pharmacy Electronically, [facility] #[id number], Partial fill upon patient request if the prescription is for a schedule II o... Start Date: 08/28/21 Status: Orderedmultivitamin, Multivitamins oral tablet, chewable 1 tablet, Chew, Daily, # 90 tablet, 2 Refills, Maintenance, 08/03/21 14:02:00 EDT, Chew Tablet, [facility] #[id number], Partial fill upon patient request if the [...] capsule, 1 Refills, Maintenance, 07/28/21 19:02:00 EDT, [facility] #[id number], 70.5, kg, 07/26/21 19:32:00 EDT, Dry Weight Start Date: 07/28/21 Status: Ordered Problem List Condition Effective Dates Status Health Status Informant History of section(Confirmed) Active History of delivery(Confirmed) Active Obese class I(Confirmed) Active COVID-19 vaccination Active declined(Confirmed) Social History Social History Type Response Smoking Status Never (less than 100 in life time) entered on: 07/26/21 Sex
--- OUTSIDE RECORDS SUMMARY | 2022-04-20 23:58 | XMS_ITS | Continuity of Care Document ---
:1995 Author Organization [facility] Address [address] [place] [address]- Care Team Providers Name Role Phone Not on Staff, PCP Primary Care Physician Unavailable [facility] Date(s): 12/05/21 - 01/04/[address] [address] Allergies, Adverse Reactions, Alerts Substance Reaction Severity Status Rocephin destin Active Anaphylaxis Immunizations Given and Recorded Vaccine Date Status Refusal Reason tetanus/diphtheria/pertussis, acel(Tdap) 08/18/21 Given Medications multivitamin, Multivitamins oral tablet, chewable 1 tablet, Chew, Daily, # 90 tablet, 2 Refills, Maintenance, 08/03/21 14:02:00 EDT, Chew Tablet, [facility] #[id number], Partial fill upon patient request if the prescription is for a schedule II opioid drug., 1 tablet Chew Daily, 154.94, cm, 07/24... Start Date: 08/03/21 Status: Ordered Problem List Condition Confirmation Course Effective Dates Status Health Stat Informant History of Confirmed Active section History of Confirmed Active delivery COVID-19 Confirmed Active vaccination declined Social History Social History Type Response Smoking Status Never (less than 100 in life time) entered on: 07/26/21 Sex Patient Care team information PersonnelName: Not on Staff, PCP
--- OUTSIDE RECORDS SUMMARY | 2022-04-20 23:58 | XMS_ITS | Continuity of Care Document ---
:1995 Author Organization [facility] Address [address] [place] [address]- Care Team Providers Name Role Phone Not on Staff, PCP Primary Care Physician Unavailable Encounter [facility] Date(s): 08/26/21 - 08/27/[address] [address] Discharge Disposition: A-D/C Home Attending Physician: Chepe Xiong MD Admitting Physician: Chepe Xiong MD Referring Physician: Chepe Xiong MD Allergies, Adverse Reactions, Alerts Substance Reaction Severity Status Rocephin Active Immunizations Given and Recorded Vaccine Date Status Refusal Reason tetanus/diphtheria/pertussis, acel(Tdap) 08/18/21 Given Medications multivitamin, Multivitamins oral tablet, chewable 1 tablet, Chew, Daily, # 90 tablet, 2 Refills, Maintenance, 08/03/21 14:02:00 EDT, Chew Tablet, [facility] #[id number], Partial fill upon patient request if the [...] capsule, 1 Refills, Maintenance, 07/28/21 19:02:00 EDT, [facility] #[id number], 70.5, kg, 07/26/21 19:32:00 EDT, Dry Weight Start Date: 07/28/21 Status: Ordered Problem List Condition Effective Dates Status Health Status Informant History of section(Confirmed) Active History of delivery(Confirmed) Active COVID-19 vaccination Active declined(Confirmed) Vital Signs Most recent to oldest [Reference 1 2 3 Range]: Height 155 cm 155 cm (08/26/21 9:00 PM) (08/26/21 2:33 PM) Weight 72 kg 72.0 kg (08/26/21 9:00 PM) (08/26/21 2:33 PM) Oxygen Saturation [94-100 %] 100 % 99 % 99 % (08/27/21 10:09 PM) (08/27/21 1:04 PM) (08/27/21 8:38 AM) Pulse Rate [55-90 bpm] 71 bpm (08/26/21 9:00 PM) Body Mass Index [18.5-24.99] 29.97 29.97 *H* *H* (08/26/21 9:00 PM) (08/26/21 2:33 PM) Blood Pressure [90-138/55-84 mm 111/69 mm Hg 113/57 mm Hg 111/59 mm Hg Hg] (08/27/21 10:09 PM) (08/27/21 8:15 PM) (08/27/21 4:20 PM) Respiratory Rate [16-30 br/min] 18 br/min 18 br/min 16 br/min (08/27/21 4:20 PM) (08/27/21 1:04 PM) (08/27/21 8:38 A M) Temperature [96.8-100.4 DegF] 98.9 DegF 98.9 DegF 98 .9 DegF (08/27/21 10:09 PM) (08/27/21 8:15 PM) (08/27/21 4:20 PM) Mode of Delivery (Oxygen) Room air (08/26/21 9:00 PM) Blood pressure sites Arm, right (08/26/21 9:00 PM) Temperature Route Oral Oral Oral (08/27/21 10:09 PM) (08/27/21 8:15 PM) (08/27/21 4:20 PM) Dry Weight 72 kg 72.0 kg (08/26/21 9:00 PM) (08/26/21 2:33 PM) Weight Obtained Via Standing scale (08/26/21 2:33 PM) Dry Weight Obtained Via Standing scale (08/26/21 2:33 PM) Social History Social History Type Response Smoking Status Never (less than 100 in life time) entered on: 07/26/21 Sex
--- OUTSIDE RECORDS SUMMARY | 2022-04-20 23:58 | XMS_ITS | Continuity of Care Document ---
:1995 Author Organization [facility] Address [address] [place] [address] [address] [place] [address]- Care Team Providers Name Role Phone Not on Staff, PCP Primary Care Physician Unavailable [facility] Date(s): 09/05/21 - 09/12/21 [facility] [address] [place], [place] [address] Attending Physician: Champ Carl MD Referring Physician: Not on Staff, Referring MD Allergies, Adverse Reactions, Alerts Substance Reaction Severity Status Rocephin Active Immunizations Given and Recorded Vaccine Date Status Refusal Reason tetanus/diphtheria/pertussis, acel(Tdap) 08/18/21 Given Medications ferrous sulfate 325 mg oral enteric coated tablet 325 mg, 1, tablet, By Mouth, Daily, # 90 tablet, Refills 0, Tot. Refills 0, Maintenance, 08/28/21 17:19:00 EDT, Route to Pharmacy Electronically, [facility] #[id number], Partial fill upon patient request if the prescription is for a schedule II o... Start Date: 08/28/21 Status: Orderedmultivitamin, Multivitamins oral tablet, chewable 1 tablet, Chew, Daily, # 90 tablet, 2 Refills, Maintenance, 08/03/21 14:02:00 EDT, Chew Tablet, [facility] #[id number], Partial fill upon patient request if the [...] capsule, 1 Refills, Maintenance, 07/28/21 19:02:00 EDT, [facility] #[id number], 70.5, kg, 07/26/21 19:32:00 EDT, Dry Weight Start Date: 07/28/21 Status: Ordered Problem List Condition Effective Dates Status Health Status Informant History of section(Confirmed) Active History of delivery(Confirmed) Active Obese class I(Confirmed) Active COVID-19 vaccination Active declined(Confirmed) Vital Signs Most recent to oldest [Reference Range]: 1 Height 155 cm (09/05/21 10:41 AM) Weight 72.6 kg (09/05/21 10:41 AM) Body Mass Index [18.5-24.99] 30.22 *>HHI* (09/05/21 10:41 AM) Social History Social History Type Response Smoking Status Never (less than 100 in life time) entered on: 07/26/21 Sex
--- OUTSIDE RECORDS SUMMARY | 2022-04-20 23:58 | XMS_ITS | Continuity of Care Document ---
:1995 Author Organization [facility] Address [address] [place] [address]- Care Team Providers Name Role Phone Not on Staff, PCP Primary Care Physician Unavailable Encounter [facility] Date(s): 07/26/21 - 07/26/[address] [address]- Discharge Disposition: [facility]red [facility]term [facility] Attending Physician: Atif Soto MD Admitting Physician: Atif Soto MD Referring Physician: Not on Staff, Referring MD Allergies, Adverse Reactions, Alerts Substance Reaction Severity Status Rocephin Active Medications Multivitamins By Mouth, Daily, 0 Refills, Maintenance, 07/26/21 19:37:00 EDT, Partial fill upon patient request ifthe prescription is for a schedule II opioid drug. Start Date: 07/26/21 Status: Ordered Problem List Condition Effective Dates Status Health Status Informant History of section(Confirmed) Active History of delivery(Confirmed) Active Vital Signs Most recent to oldest [Reference Range]: 1 2 Oxygen Saturation [94-100 %] 98 % 100 % (07/26/21 6:39 PM) (07/26/21 6:28 PM) Pulse Rate [55-90 bpm] 84 bpm 107 bpm (07/26/21 6:39 PM) *H* (07/26/21 6:28 PM) Blood Pressure [90-138/55-84 mm Hg] 113/73 mm Hg (07/26/21 6:39 PM) Respiratory Rate [16-30 br/min] 16 br/min (07/26/21 6:39 PM) Temperature [96.8-100.4 DegF] 97.9 DegF (07/26/21 6:39 PM) Mode of Delivery (Oxygen) Room air Room air (07/26/21 6:39 PM) (07/26/21 6:28 PM) Blood pressure sites Arm, left (07/26/21 6:39 PM) Temperature Route Oral (07/26/21 6:39 PM) Social History Social History Type Response Smoking Status Never (less than 100 in life time) entered on: 07/26/21 Sex
--- OUTSIDE RECORDS SUMMARY | 2022-04-20 23:58 | XMS_ITS | Continuity of Care Document ---
:1995 Author Organization [facility] Address [address] [place] [address]- Care Team Providers Name Role Phone Not on Staff, PCP Primary Care Physician Unavailable [facility] Date(s): 10/31/21 - 11/30/[address] [address] Allergies, Adverse Reactions, Alerts Substance Reaction Severity Status Rocephin destin Active Anaphylaxis Immunizations Given and Recorded Vaccine Date Status Refusal Reason tetanus/diphtheria/pertussis, acel(Tdap) 08/18/21 Given Medications multivitamin, Multivitamins oral tablet, chewable 1 tablet, Chew, Daily, # 90 tablet, 2 Refills, Maintenance, 08/03/21 14:02:00 EDT, Chew Tablet, [facility] #[id number], Partial fill upon patient request if the [...]
--- OUTSIDE RECORDS SUMMARY | 2022-04-20 23:58 | XMS_ITS | Continuity of Care Document ---
:1995 Author Organization [facility] Address [address] [place] [id number]- Care Team Providers Name Role Phone Not on Staff, PCP Primary Care Physician Unavailable [facility]counter [facility] Date(s): 08/26/21 - 09/25/[address] [address] Allergies, Adverse Reactions, Alerts Substance Reaction Severity Status Rocephin Active Immunizations Given and Recorded Vaccine Date Status Refusal Reason tetanus/diphtheria/pertussis, acel(Tdap) 08/18/21 Given Medications ferrous sulfate 325 mg oral enteric coated tablet 325 mg, 1, tablet, By Mouth, Daily, # 90 tablet, Refills 0, Tot. Refills 0, Maintenance, 08/28/21 17:19:00 EDT, Route to Pharmacy Electronically, [facility] #[id number], Partial fill upon patient request if the prescription is for a schedule II o... Start Date: 08/28/21 Status: Orderedmultivitamin, Multivitamins oral tablet, chewable 1 tablet, Chew, Daily, # 90 tablet, 2 Refills, Maintenance, 08/03/21 14:02:00 EDT, Chew Tablet, [facility] #[id number], Partial fill upon patient request if the [...] capsule, 1 Refills, Maintenance, 07/28/21 19:02:00 EDT, [facility] #[id number], 70.5, kg, 07/26/21 19:32:00 EDT, Dry Weight Start Date: 07/28/21 Status: Ordered Problem List Condition Effective Dates Status Health Status Informant History of section(Confirmed) Active History of delivery(Confirmed) Active Obese class I(Confirmed) Active COVID-19 vaccination Active declined(Confirmed) Social History Social History Type Response Smoking Status Never (less than 100 in life time) entered on: 07/26/21 Sex
--- OUTSIDE RECORDS SUMMARY | 2022-04-20 23:58 | XMS_ITS | Continuity of Care Document ---
:1995 Author Organization [facility] Address [address] [place] [address] [address] [place] [address]- Care Team Providers Name Role Phone Not on Staff, PCP Primary Care Physician Unavailable [facility] Date(s): 10/04/21 - 11/03/[address] [place], [place] [address] Allergies, Adverse Reactions, Alerts Substance Reaction Severity Status Rocephin destin Active Anaphylaxis Immunizations Given and Recorded Vaccine Date Status Refusal Reason tetanus/diphtheria/pertussis, acel(Tdap) 08/18/21 Given Medications erythromycin 500 mg oral tablet 1 tablet = 500 mg, By Mouth, Every 12 hours, for 10 days, # 20 tablet, 0 Refills, Acute 11/10/21 15:15:00 EDT, 10/31/21 15:15:00 EDT, Tablet, [facility][id number], Partial fill upon patient request if the prescription is for a schedule II opioi... Start Date: 10/31/21 Stop Date: 11/10/21 Status: Orderedferrous sulfate 325 mg oral enteric coated tablet 325 mg, 1, tablet, By Mouth, Daily, # 90 tablet, Refills 0, Tot. Refills 0, Maintenance, 08/28/21 17:19:00 EDT, Route to Pharmacy Electronically, [facility] #[id number], Partial fill upon patient request if the prescription is for a schedule II o... Start Date: 08/28/21 Status: Orderedmultivitamin, Multivitamins oral tablet, chewable 1 tablet, Chew, Daily, # 90 tablet, 2 Refills, Maintenance, 08/03/21 14:02:00 EDT, Chew Tablet, [facility] #[id number], Partial fill upon patient request if the [...]
--- OUTSIDE RECORDS SUMMARY | 2022-04-20 23:58 | XMS_ITS | Continuity of Care Document ---
:1995 Author Organization [facility] Address [address] [place] [address]- Care Team Providers Name Role Phone Not on Staff, PCP Primary Care Physician Unavailable Encounter [facility] Date(s): 08/11/21 - 09/10/[address] [address] Allergies, Adverse Reactions, Alerts Substance Reaction Severity Status Rocephin Active Immunizations Given and Recorded Vaccine Date Status Refusal Reason tetanus/diphtheria/pertussis, acel(Tdap) 08/18/21 Given Medications ferrous sulfate 325 mg oral enteric coated tablet 325 mg, 1, tablet, By Mouth, Daily, # 90 tablet, Refills 0, Tot. Refills 0, Maintenance, 08/28/21 17:19:00 EDT, Route to Pharmacy Electronically, [facility] #[id number], Partial fill upon patient request if the prescription is for a schedule II o... Start Date: 08/28/21 Status: Orderedmultivitamin, Multivitamins oral tablet, chewable 1 tablet, Chew, Daily, # 90 tablet, 2 Refills, Maintenance, 08/03/21 14:02:00 EDT, Chew Tablet, [facility] #[id number], Partial fill upon patient request if the [...] capsule, 1 Refills, Maintenance, 07/28/21 19:02:00 EDT, [facility] #[id number], 70.5, kg, 07/26/21 19:32:00 EDT, Dry Weight Start Date: 07/28/21 Status: Ordered Problem List Condition Effective Dates Status Health Status Informant History of section(Confirmed) Active History of delivery(Confirmed) Active Obese class I(Confirmed) Active COVID-19 vaccination Active declined(Confirmed) Social History Social History Type Response Smoking Status Never (less than 100 in life time) entered on: 07/26/21 Sex
--- OUTSIDE RECORDS SUMMARY | 2022-04-20 23:58 | XMS_ITS | Continuity of Care Document ---
:1995 Author Organization [facility] Address [address] [place] [address]- Care Team Providers Name Role Phone Not on Staff, PCP Primary Care Physician Unavailable [place] [facility] [place] - 08/27/[address] [address] Allergies, Adverse Reactions, Alerts Substance Reaction Severity Status Rocephin Active Immunizations Given and Recorded Vaccine Date Status Refusal Reason tetanus/diphtheria/pertussis, acel(Tdap) 08/18/21 Given Medications multivitamin, Multivitamins oral tablet, chewable 1 tablet, Chew, Daily, # 90 tablet, 2 Refills, Maintenance, 08/03/21 14:02:00 EDT, Chew Tablet, [facility] #[id number], Partial fill upon patient request if the [...] capsule, 1 Refills, Maintenance, 07/28/21 19:02:00 EDT, [facility] #[id number], 70.5, kg, 07/26/21 19:32:00 EDT, Dry Weight Start Date: 07/28/21 Status: Ordered Problem List Condition Effective Dates Status Health Status Informant History of section(Confirmed) Active History of delivery(Confirmed) Active COVID-19 vaccination Active declined(Confirmed) Social History Social History Type Response Smoking Status Never (less than 100 in life time) entered on: 07/26/21 Sex
--- OUTSIDE RECORDS SUMMARY | 2022-04-20 23:58 | XMS_ITS | Continuity of Care Document ---
:1995 Author Organization [facility] Address [address] [place] [address]- Care Team Providers Name Role Phone Not on Staff, PCP Primary Care Physician Unavailable [place] [facility] [place] 08/18/21 - 11/12/[address] [address]- Attending Physician: Not on Staff, Attending MD [...] 08/28/21 17:19:00 EDT, Route to Pharmacy Electronically, [facility] #[id number], Partial fill upon patient request if the prescription is for a schedule II o... Start Date: 08/28/21 Status: Orderedmultivitamin, Multivitamins oral tablet, chewable 1 tablet, Chew, Daily, # 90 tablet, 2 Refills, Maintenance, 08/03/21 14:02:00 EDT, Chew Tablet, [facility] #[id number], Partial fill upon patient request if the [...]
--- OUTSIDE RECORDS SUMMARY | 2022-04-20 23:58 | XMS_ITS | Continuity of Care Document ---
:1995 Author Organization [facility] Address [address] [place] [address]- Care Team Providers Name Role Phone Not on Staff, PCP Primary Care Physician Unavailable Encounter [facility] [place] Date(s): 01/17/22 - 02/16/[address] [address] Allergies, Adverse Reactions, Alerts Substance Reaction Severity Status Rocephin destin Active Anaphylaxis Immunizations Given and Recorded Vaccine Date Status Refusal Reason tetanus/diphtheria/pertussis, acel(Tdap) 08/18/21 Given Medications multivitamin, Multivitamins oral tablet, chewable 1 tablet, Chew, Daily, # 90 tablet, 2 Refills, Maintenance, 08/03/21 14:02:00 EDT, Chew Tablet, [facility] #[id number], Partial fill upon patient request if the [...] on: 07/26/21 Sex Patient Care team information Care Team PersonnelName: Not on Staff, PCP Position: S Physician (General Medicine) Member Role: PCP Care Team Related PersonsName: LINO WOLFEVALENTE Address: home [address] [place] [address] Name: SUYAPANAKUL Address: [address] Address: home [address] [place] [address]
--- OUTSIDE RECORDS SUMMARY | 2022-04-20 23:58 | XMS_ITS | Continuity of Care Document ---
:1995 Author Organization [facility] Address [address] [place] [address]- Care Team Providers Name Role Phone Not on Staff, PCP Primary Care Physician Unavailable Encounter [facility] Date(s): 10/11/21 - 11/10/[address] [address] Allergies, Adverse Reactions, Alerts Substance Reaction Severity Status Rocephin destin Active Anaphylaxis Immunizations Given and Recorded Vaccine Date Status Refusal Reason tetanus/diphtheria/pertussis, acel(Tdap) 08/18/21 Given Medications ferrous sulfate 325 mg oral enteric coated tablet 325 mg, 1, tablet, By Mouth, Daily, # 90 tablet, Refills 0, Tot. Refills 0, Maintenance, 08/28/21 17:19:00 EDT, Route to Pharmacy Electronically, [facility] #[id number], Partial fill upon patient request if the prescription is for a schedule II o... Start Date: 08/28/21 Status: Orderedmultivitamin, Multivitamins oral tablet, chewable 1 tablet, Chew, Daily, # 90 tablet, 2 Refills, Maintenance, 08/03/21 14:02:00 EDT, Chew Tablet, [facility] #[id number], Partial fill upon patient request if the [...]
--- OUTSIDE RECORDS SUMMARY | 2022-04-20 23:58 | XMS_ITS | Continuity of Care Document ---
:1995 Author Organization [facility] Address [address] [place] [address]- Care Team Providers Name Role Phone Not on Staff, PCP Primary Care Physician Unavailable Encounter [facility] [place] Date(s): 08/12/21 - 09/11/21 [facility] [address] [place] [address] Allergies, Adverse Reactions, Alerts Substance Reaction Severity Status Rocephin Active Immunizations Given and Recorded Vaccine Date Status Refusal Reason tetanus/diphtheria/pertussis, acel(Tdap) 08/18/21 Given Medications ferrous sulfate 325 mg oral enteric coated tablet 325 mg, 1, tablet, By Mouth, Daily, # 90 tablet, Refills 0, Tot. Refills 0, Maintenance, 08/28/21 17:19:00 EDT, Route to Pharmacy Electronically, [facility] #[id number], Partial fill upon patient request if the prescription is for a schedule II o... Start Date: 08/28/21 Status: Orderedmultivitamin, Multivitamins oral tablet, chewable 1 tablet, Chew, Daily, # 90 tablet, 2 Refills, Maintenance, 08/03/21 14:02:00 EDT, Chew Tablet, [facility] #[id number], Partial fill upon patient request if the [...] capsule, 1 Refills, Maintenance, 07/28/21 19:02:00 EDT, [facility] #[id number], 70.5, kg, 07/26/21 19:32:00 EDT, Dry Weight Start Date: 07/28/21 Status: Ordered Problem List Condition Effective Dates Status Health Status Informant History of section(Confirmed) Active History of delivery(Confirmed) Active Obese class I(Confirmed) Active COVID-19 vaccination Active declined(Confirmed) Social History Social History Type Response Smoking Status Never (less than 100 in life time) entered on: 07/26/21 Sex
--- OUTSIDE RECORDS SUMMARY | 2022-04-20 23:58 | XMS_ITS | Continuity of Care Document ---
:1995 Author Organization [facility] Address Unavailable , Care Team Providers Name Role Phone Not on Staff, PCP Primary Care Physician Unavailable Encounter [facility] [place] Date(s): 08/12/21 - 09/11/21 [facility] Allergies, Adverse Reactions, Alerts Substance Reaction Severity Status Rocephin Active Immunizations Given and Recorded Vaccine Date Status Refusal Reason tetanus/diphtheria/pertussis, acel(Tdap) 08/18/21 Given Medications ferrous sulfate 325 mg oral enteric coated tablet 325 mg, 1, tablet, By Mouth, Daily, # 90 tablet, Refills 0, Tot. Refills 0, Maintenance, 08/28/21 17:19:00 EDT, Route to Pharmacy Electronically, [facility] #[id number], Partial fill upon patient request if the prescription is for a schedule II o... Start Date: 08/28/21 Status: Orderedmultivitamin, Multivitamins oral tablet, chewable 1 tablet, Chew, Daily, # 90 tablet, 2 Refills, Maintenance, 08/03/21 14:02:00 EDT, Chew Tablet, [facility] #[id number], Partial fill upon patient request if the [...] capsule, 1 Refills, Maintenance, 07/28/21 19:02:00 EDT, [facility] #[id number], 70.5, kg, 07/26/21 19:32:00 EDT, Dry Weight Start Date: 07/28/21 Status: Ordered Problem List Condition Effective Dates Status Health Status Informant History of section(Confirmed) Active History of delivery(Confirmed) Active Obese class I(Confirmed) Active COVID-19 vaccination Active declined(Confirmed) Social History Social History Type Response Smoking Status Never (less than 100 in life time) entered on: 07/26/21 Sex
--- OUTSIDE RECORDS SUMMARY | 2022-04-20 23:58 | XMS_ITS | Continuity of Care Document ---
:1995 Author Organization [facility] Address [address] [place] [address]- Care Team Providers Name Role Phone Not on Staff, PCP Primary Care Physician Unavailable Encounter [facility] Date(s): 10/05/21 - 11/04/[address] [address] Allergies, Adverse Reactions, Alerts Substance Reaction Severity Status Rocephin destin Active Anaphylaxis Immunizations Given and Recorded Vaccine Date Status Refusal Reason tetanus/diphtheria/pertussis, acel(Tdap) 08/18/21 Given Medications erythromycin 500 mg oral tablet 1 tablet = 500 mg, By Mouth, Every 12 hours, for 10 days, # 20 tablet, 0 Refills, Acute 11/10/21 15:15:00 EDT, 10/31/21 15:15:00 EDT, Tablet, [facility] #[id number], Partial fill upon patient request if the prescription is for a schedule II opioi... Start Date: 10/31/21 Stop Date: 11/10/21 Status: Orderedferrous sulfate 325 mg oral enteric coated tablet 325 mg, 1, tablet, By Mouth, Daily, # 90 tablet, Refills 0, Tot. Refills 0, Maintenance, 08/28/21 17:19:00 EDT, Route to Pharmacy Electronically, [facility] #[id number], Partial fill upon patient request if the prescription is for a schedule II o... Start Date: 08/28/21 Status: Orderedmultivitamin, Multivitamins oral tablet, chewable 1 tablet, Chew, Daily, # 90 tablet, 2 Refills, Maintenance, 08/03/21 14:02:00 EDT, Chew Tablet, [facility] #[id number], Partial fill upon patient request if the [...]
--- OUTSIDE RECORDS SUMMARY | 2022-04-20 23:58 | XMS_ITS | Continuity of Care Document ---
:1995 Author Organization [facility] Address [address] [place] [address]- Care Team Providers Name Role Phone Not on Staff, PCP Primary Care Physician Unavailable En[place] [facility] [place] Date(s): 07/26/21 - 07/27/[address] [address] Discharge Disposition: A-D/C Home Attending Physician: Monika Pagan DO Admitting Physician: Monika Pagan DO Referring Physician: Monika Pagan DO Allergies, Adverse Reactions, Alerts Substance Reaction Severity Status Rocephin Active Medications Multivitamins By Mouth, Daily, 0 Refills, Maintenance, 07/26/21 19:37:00 EDT, Partial fill upon patient request ifthe prescription is for a schedule II opioid drug. Start Date: 07/26/21 Status: Ordered Problem List Condition Effective Dates Status Health Status Informant History of section(Confirmed) Active History of delivery(Confirmed) Active Procedures Procedure Date Related Diagnosis Body Site Status Breast augmentation Complete d section Completed Cholecystectomy Completed Vital Signs Most recent to oldest [Reference Range]: 1 Weight 70.5 kg (07/26/21 7:32 PM) Oxygen Saturation [94-100 %] 100 % (07/26/21 7:42 PM) Blood Pressure [90-138/55-84 mm Hg] 117/63 mm Hg (07/26/21 7:42 PM) Respiratory Rate [16-30 br/min] 16 br/min (07/26/21 7:42 PM) Temperature [96.8-100.4 DegF] 98.4 DegF (07/26/21 7:42 PM) Mode of Delivery (Oxygen) Room air (07/26/21 7:42 PM) Blood pressure sites Arm, right (07/26/21 7:42 PM) Temperature Route Oral (07/26/21 7:42 PM) Dry Weight 70.5 kg (07/26/21 7:32 PM) Weight Obtained Via Standing scale (07/26/21 7:32 PM) Social History Social History Type Response Smoking Status Never (less than 100 in life time) entered on: 07/26/21 Sex
--- OUTSIDE RECORDS SUMMARY | 2022-04-20 23:58 | XMS_ITS | Continuity of Care Document ---
:1995 Author Organization [facility] Address [address] [place] [address]- Care Team Providers Name Role Phone Not on Staff, PCP Primary Care Physician Unavailable Encounter [facility] Date(s): 12/13/21 - 12/14/[address] [address]- Encounter Diagnosis Pyelonephritis (Final) - 12/14/21 Discharge Disposition: A-D/C Home Attending Physician: Horacio Dobson DO Admitting Physician: Horacio Dobson DO Referring Physician: Not on Staff, Referring MD Allergies, Adverse Reactions, Alerts Substance Reaction Severity Status Rocephin destin Active Anaphylaxis Immunizations Given and Recorded Vaccine Date Status Refusal Reason tetanus/diphtheria/pertussis, acel(Tdap) 08/18/21 Given Medications Augmentin 875 mg-125 mg oral tablet 1 tablet, By Mouth, Every 12 hours, for 7 days, # 14 tablet, 0 Refills, Acute 12/21/21 1:07:00 EDT, 12/14/21 1:07:00 EDT, Tablet, [facility] #[id number], Partial fill upon patient request if the prescription is for a schedule II opioid drug., 155... Start Date: 12/14/21 Stop Date: 12/21/21 Status: Orderedmultivitamin, Multivitamins oral tablet, chewable 1 tablet, Chew, Daily, # 90 tablet, 2 Refills, Maintenance, 08/03/21 14:02:00 EDT, Chew Tablet, [facility] #[id number], Partial fill upon patient request if the [...] [Reference Range]: Height 155 cm 155 cm (12/13/21 9:24 PM) (12/13/21 9:23 PM) Weight 70.6 kg 70.6 kg (12/13/21 9:24 PM) (12/13/21 9:23 PM) Oxygen Saturation [94-100 %] 100 % 100 % 99 % (12/14/21 1:16 AM) (12/13/21 11:51 PM) (12/13/21 9: PM) Pulse Rate [55-90 bpm] 74 bpm 66 bpm 74 bpm (12/14/21 1:16 AM) (12/13/21 11:51 PM) (12/13/21 9: PM) Body Mass Index [18.5-24.99 29.39 kg/m2 kg/m2] *H* (12/13/21: PM) Blood Pressure [90-138/55-84 112/54 mm Hg 107/66 mm Hg 120 /66 mm Hg mm Hg] (12/14/21 1:16 AM) (12/13/21 11:51 PM) (12/13/21 9: PM) Respiratory Rate [16-30 20 br/min 19 br/min 18 br/mi n br/min] (12/14/21 1:16 AM) (12/13/21 11:51 PM) (12/13/21 9: 23 PM) Temperature [96.8-100.4 DegF] 98.0 DegF 97.3 DegF (12/13/21 11:51 PM) (12/13/21: PM) Mode of Delivery (Oxygen) Room air Room air Room a ir (12/14/21 1:16 AM) (12/13/21 11:51 PM) (12/13/21: PM) Blood pressure sites Arm, right Arm, left Arm, right (12/14/21 1:16 AM) (12/13/21 11:51 PM) (12/13/21 9: 23 PM) Temperature Route Oral Temporal (12/13/21 11:51 PM) (12/13/21:23 PM) Dry Weight 70.6 kg 70.6 kg (12/13/21 9:24 PM) (12/13/21 9:23 PM) Weight Obtained Via Standing scale (12/13/21 9:23 PM) Social History Social History Type Response Smoking Status Never (less than 100 in life time) entered on: 07/26/21 Sex Care Team PersonnelName: Not on Staff, PCP
--- OUTSIDE RECORDS SUMMARY | 2022-04-20 23:58 | XMS_ITS | Continuity of Care Document ---
:1995 Author Organization [facility] Address [address] [place] [address]- Care Team Providers Name Role Phone Not on Staff, PCP Primary Care Physician Unavailable Encounter [facility] [place] Date(s): 08/16/21 - 09/15/[address] [address] Allergies, Adverse Reactions, Alerts Substance Reaction Severity Status Rocephin Active Immunizations Given and Recorded Vaccine Date Status Refusal Reason tetanus/diphtheria/pertussis, acel(Tdap) 08/18/21 Given Medications ferrous sulfate 325 mg oral enteric coated tablet 325 mg, 1, tablet, By Mouth, Daily, # 90 tablet, Refills 0, Tot. Refills 0, Maintenance, 08/28/21 17:19:00 EDT, Route to Pharmacy Electronically, [facility] #[id number], Partial fill upon patient request if the prescription is for a schedule II o... Start Date: 08/28/21 Status: Orderedmultivitamin, Multivitamins oral tablet, chewable 1 tablet, Chew, Daily, # 90 tablet, 2 Refills, Maintenance, 08/03/21 14:02:00 EDT, Chew Tablet, [facility] #[id number], Partial fill upon patient request if the [...] capsule, 1 Refills, Maintenance, 07/28/21 19:02:00 EDT, [facility] #[id number], 70.5, kg, 07/26/21 19:32:00 EDT, Dry Weight Start Date: 07/28/21 Status: Ordered Problem List Condition Effective Dates Status Health Status Informant History of section(Confirmed) Active History of delivery(Confirmed) Active Obese class I(Confirmed) Active COVID-19 vaccination Active declined(Confirmed) Social History Social History Type Response Smoking Status Never (less than 100 in life time) entered on: 07/26/21 Sex
--- OUTSIDE RECORDS SUMMARY | 2022-04-20 23:58 | XMS_ITS | Continuity of Care Document ---
:1995 Author Organization [facility] Address [address] [place] [address]- Care Team Providers Name Role Phone Not on Staff, PCP Primary Care Physician Unavailable [place] [facility] [place] 11/22/[place] - 02/16/[address] [address]- Attending Physician: Not on Staff, Attending MD Allergies, Adverse Reactions, Alerts Substance Reaction Severity Status Rocephin destin Active Anaphylaxis Immunizations Given and Recorded Vaccine Date Status Refusal Reason tetanus/diphtheria/pertussis, acel(Tdap) 08/18/21 Given Medications multivitamin, Multivitamins oral tablet, chewable 1 tablet, Chew, Daily, # 90 tablet, 2 Refills, Maintenance, 08/03/21 14:02:00 EDT, Chew Tablet, [facility] #[id number], Partial fill upon patient request if the [...] Member Role: PCP Care Team Related PersonsName: EVARISTO WOLFE Address: home [address] [place] [address] Name: NAKUL DALE Address: Address: home [address] [place] [address] [place]
--- OUTSIDE RECORDS SUMMARY | 2022-04-20 23:58 | XMS_ITS | Continuity of Care Document ---
:1995 Author Organization [facility] Address [address] [place] [address]- Care Team Providers Name Role Phone Not on Staff, PCP Primary Care Physician Unavailable Encounter [facility] Date(s): 10/04/21 - 11/03/[address] [address] Allergies, Adverse Reactions, Alerts Substance Reaction Severity Status Rocephin destin Active Anaphylaxis Immunizations Given and Recorded Vaccine Date Status Refusal Reason tetanus/diphtheria/pertussis, acel(Tdap) 08/18/21 Given Medications erythromycin 500 mg oral tablet 1 tablet = 500 mg, By Mouth, Every 12 hours, for 10 days, # 20 tablet, 0 Refills, Acute 11/10/21 15:15:00 EDT, 10/31/21 15:15:00 EDT, Tablet, [email or web address] #[id number], Partial fill upon patient request if the prescription is for a schedule II opioi... Start Date: 10/31/21 Stop Date: 11/10/21 Status: Orderedferrous sulfate 325 mg oral enteric coated tablet 325 mg, 1, tablet, By Mouth, Daily, # 90 tablet, Refills 0, Tot. Refills 0, Maintenance, 08/28/21 17:19:00 EDT, Route to Pharmacy Electronically, [facility] #[id number], Partial fill upon patient request if the prescription is for a schedule II o... Start Date: 08/28/21 Status: Orderedmultivitamin, Multivitamins oral tablet, chewable 1 tablet, Chew, Daily, # 90 tablet, 2 Refills, Maintenance, 08/03/21 14:02:00 EDT, Chew Tablet, [facility] #[id number], Partial fill upon patient request if the [...]
--- OUTSIDE RECORDS SUMMARY | 2022-04-20 23:58 | XMS_ITS | Continuity of Care Document ---
:1995 Author Organization [facility] Address [address] [place] [address] Drive [address] [place] [address]- Care Team Providers Name Role Phone Not on Staff, PCP Primary Care Physician Unavailable Encounter [facility] Date(s): 09/05/21 - 10/05/21 [facility] [address] [place], [place] [address] Attending Physician: Salazar Marin Admitting Physician: Salazar [...] 08/28/21 17:19:00 EDT, Route to Pharmacy Electronically, [facility] #[id number], Partial fill upon patient request if the prescription is for a schedule II o... Start Date: 08/28/21 Status: Orderedmultivitamin, Multivitamins oral tablet, chewable 1 tablet, Chew, Daily, # 90 tablet, 2 Refills, Maintenance, 08/03/21 14:02:00 EDT, Chew Tablet, [facility] #[id number], Partial fill upon patient request if the [...] capsule, 1 Refills, Maintenance, 07/28/21 19:02:00 EDT, [facility] #[id number], 70.5, kg, 07/26/21 19:32:00 EDT, Dry Weight [...]
[2022-04-21] MEDS: Ondansetron ODT 4 MG TAB.RAPDIS TRANSLINGU (00:12)
[2022-04-21] MEDS: Loperamide HCl 2 MG CAPSULE PO (00:12)
[2022-04-21 00:14] VITALS: BP 117/68; PULSE 88; RESP 14; TEMP 36.8; O2SAT 98
[2022-04-21 01:37] LABS: Appearance Urine Clear; Color Urine Yellow; Glucose Urine UA Negative (Negative); Leukocyte Esterase Urine Negative (Negative); Nitrite Urine Negative (Negative); PH 5.5 (5.0-9.0); Specific Gravity - Urine >= 1.030 (1.005-1.025); UMIC TRIGGER UACC YES; Urine Blood Small (1+) (Negative); Urine Ketones Trace mg/dL (Negative); Urine Protein Trace mg/dL (Neg-Trace)
[2022-04-21 01:44] VITALS: BP 103/52; PULSE 94; RESP 16; TEMP 36.8; O2SAT 98
[2022-04-21 01:55] LABS: Bacteria Urine None Seen (None Seen); Hyaline Casts Urine 0-2 /LPF (0-2); WBC Urine 0-5 /HPF (0-5)
[2022-04-21] MEDS: Dicyclomine HCl 10 MG CAPSULE 20 MG PO (02:20)
--- NOTE | 2022-04-21 02:25 | PC.NURSE ---
Pt medicated as ordered. Tolerated well. Reviewed and verbalized understanding of discharge instructions.
== END 2022-04-21 02:26 | disposition home or self-care (01) ==
PROVIDERS: Emergency Provider Internal Medicine
DX: K52.9 Noninfective gastroenteritis and colitis, unspecified (principal); Z20.822 Contact with and (suspected) exposure to COVID-19; Z20.828 Contact with and (suspected) exposure to other viral communicable diseases; Z79.899 Other long term (current) drug therapy
CPT/HCPCS: 81001; 87502; 87635; 99283

== ENCOUNTER 2022-06-22 11:14 | Emergency (ER) | payer MEDICAID, SELFPAY ==
--- NOTE | ~2022-06-22 | CT_ITS ---
EXAMINATION: CT ABDOMEN AND PELVIS WITHOUT CONTRAST CLINICAL INFORMATION: Flank pain. COMPARISON: CT scan of the abdomen and pelvis dated 11/07/2011. TECHNIQUE: Multidetector volumetric imaging was performed from the superior aspect of the liver through the pubic symphysis. Sagittal and coronal reformatted images were obtained on the technologist's workstation. Lack of intravenous and oral contrast limits visceral evaluation. This CT examination was performed using dose optimization techniques as appropriate, variously including the following: *Automated exposure control *Adjustment of mA and/or kV according to patient size (this includes techniques or standardized protocols for targeted exams where dose is matched to indication/reason for exam; i.e. extremities or head) *Use of iterative reconstruction technique DLP: 639 mGy-cm FINDINGS: LUNG BASES: The visualized lung bases are unremarkable. LIVER, GALLBLADDER, AND BILIARY TREE: No hepatic abnormality. Status post cholecystectomy. PANCREAS: Unremarkable. SPLEEN: Unremarkable. ADRENAL GLANDS: Unremarkable. KIDNEYS AND URETERS: The kidneys are normal in size, shape, and attenuation. No hydronephrosis, hydroureter, or calculi seen. No perinephric stranding. BLADDER: Unremarkable. GASTROINTESTINAL TRACT: The stomach, small bowel and appendix are unremarkable. The colon and rectum are unremarkable. Mild central mesenteric haziness and associated mildly prominent mesenteric lymph nodes without focal abnormality. ABDOMINAL WALL: No significant hernia is appreciated. LYMPH NODES: No pathologically enlarged lymph nodes. VASCULAR: Unremarkable. PELVIC VISCERA: Anteverted/anteflexed uterus with IUD in place without abnormality. No adnexal abnormality. OSSEOUS STRUCTURES: Unremarkable. CT/CT abdomen pelvis wo IV con IMPRESSION: 1. No acute intra-abdominal/pelvic abnormality to explain the patient's pain. No nephrolithiasis or hydroureteronephrosis. 2. Mild central mesenteric haziness and associated mildly prominent mesenteric lymph nodes without focal abnormality. This is nonspecific, but can be seen with mesenteric adenitis.
[2022-06-22 11:17] VITALS: BP 130/71; PULSE 96; RESP 19; TEMP 36.4; O2SAT 99; BMI 32.1
--- NOTE | 2022-06-22 11:20 | ED.GENADULT ---
HPI - General Adult General Chief complaint: Abdominal Pain <KELLEY Romo - Last Filed: 06/22/22 11:21> Stated complaint: sharp back pain/ diarrhea <KELLEY Romo - Last Filed: 06/22/22 11:21> Time Seen by Provider: 06/22/22 11:49 <KELLEY Romo - Last Filed: 06/22/22 11:21> Source: patient <KELLEY Alas - Last Filed: 06/22/22 17:10> Mode of arrival: ambulatory <KELLEY Alas Last Filed: 06/22/22 17:10> Limitations: no limitations <KELLEY Alas Last Filed: 06/22/22 17:10> History of Present Illness HPI narrative: Patient is a 26 year old assigned female at with a history of cholecystectomy and pyelonephritis presenting to the emergency department today with bilateral sharp mid back pain. Patient states that the bilateral back pain R>L first onset 3 days ago and started to radiate down to bilateral pelvis. Took Tylenol without relief. States it feels like her prior kidney infection. Reports diarrhea but unsure about correlation due to chronic diarrhea post cholecystectomy. Denies increase frequency and urgency of urination. States she felt warm at one point but did not measure her body temperature. Patient denies any dizziness, lightheadedness, abdominal pain, nausea, vomiting, chills, blurry vision, double vision, loss of vision, chest pain, difficulty breathing, shortness of breath, night sweats, syncope or a near syncopal episode, recent trauma or falls, bowel incontinence, bladder incontinence, bowel retention, bladder retention, or any other complaints at this time. <KELLEY Alas - Last Filed: 06/22/22 17:10> Onset (ago): day(s) (3) <KELLEY Alas Last Filed: 06/22/22 17:10> Location: back <KELLEY Alas Last Filed: 06/22/22 17:10> Radiation: distal <KELLEY Alas Last Filed: 06/22/22 17:10> Quality: aching <KELLEY Alas Last Filed: 06/22/22 17:10> Pain Consistency: constant <KELLEY Alas - Last Filed: 06/22/22 17:10> Treatments prior to arrival: other (Tylenol) <KELLEY Alas Last Filed: 06/22/22 17:10> Related Data Home medications: Previous Rx's Medication Instructions Recorded ondansetron 4 mg disintegrating 4 mg PO Q6H PRN nausea and 12/30/19 tablet vomiting #20 tabs dicyclomine 20 mg tablet 20 mg PO QID PRN abdominal pain 04/21/22 #20 tabs ondansetron 4 mg disintegrating 4 mg PO Q6-8H PRN nausea and 04/21/22 tablet vomiting #10 tabs <KELLEY Romo - Last Filed: 06/22/22 11:21> Allergies/adverse reactions: Allergies Allergy/AdvReac Type Severity Reaction Status Date / Time ceftriaxone [From Rocephin] Allergy Angioedema Verified 12/30/19 14:43 <KELLEY Romo - Last Filed: 06/22/22 11:21> Review of Systems Review of Systems: Yes all other systems are reviewed and are negative <KELLEY Alas - Last Filed: 06/22/22 17:10> Constitutional: Constitutional: Reports no additional constitutional complaints <KELLEY Alas Last Filed: 06/22/22 17:10> Eyes: Eyes: Reports no additional eye complaints and Denies loss of vision <KELLEY Alas - Last Filed: 06/22/22 17:10> ENT: Reports system reviewed and no additional complaints, except as documented and Denies dizziness <KELLEY Alas - Last Filed: 06/22/22 17:10> Cardiovascular: Cardiovascular: Reports no additional cardiovascular complaints <KELLEY Alas Last Filed: 06/22/22 17:10> Respiratory: Respiratory: Reports no additional respiratory complaints <KELLEY Alas Last Filed: 06/22/22 17:10> Gastrointestinal: Gastrointestinal: Reports no additional gastrointestinal complaints, Denies change in bowel habits and Reports diarrhea <KELLEY Alas Last Filed: 06/22/22 17:10> Genitourinary: Genitourinary: Reports no additional female genitourinary complaints, Denies abnormal vaginal bleeding, Denies genital pruritis, Denies urinary urgency and Denies vaginal discharge <KELLEY Alas - Last Filed: 06/22/22 17:10> Musculoskeletal: Musculoskeletal: Reports back pain, Denies numbness and Denies tingling <KELLEY Alas - Last Filed: 06/22/22 17:10> Neurologic: Denies dizziness, Denies loss of vision, Denies numbness and Denies tingling <KELLEY Alas - Last Filed: 06/22/22 17:10> Psychiatric: Psychiatric: Reports no additional psychiatric complaints <KELLEY Alas - Last Filed: 06/22/22 17:10> Endocrine: Endocrine: Reports no additional endocrine complaints <KELLEY Alas - Last Filed: 06/22/22 17:10> Hematologic/Lymphatic: Hematologic/Lymphatic: Reports no additional hematologic/lymphatic complaints <KELLEY Alas - Last Filed: 06/22/22 17:10> Allergic/Immunologic: Allergic/Immunologic: Reports no additional allergic/immunologic complaints <KELLEY Alas - Last Filed: 06/22/22 17:10> PMFSH Past Medical History Attestation statement: The following information was validated with the patient. <KELLEY Alas - Last Filed: 06/22/22 17:10> Source: old records reviewed and nursing notes reviewed <KELLEY Alas - Last Filed: 06/22/22 17:10> Medical History: Medical History Healthy adult <KELLEY Romo - Last Filed: 06/22/22 11:21> Social History Social History: Social History Alcohol intake: current Alcohol intake frequency: a few times a week Smoked in Last 30 Days: No Use of substances other than those prescribed or required for medical reasons: No Advance Directives: No Patient : No <KELLEY Romo - Last Filed: 06/22/22 11:21> Physical Exam ED Vital Signs: Vital Signs - 24 hr 06/22/22 11:17 06/22/22 13:05 06/22/22 14:05 Temperature 97.5 F Pulse Rate 96 76 65 Respiratory Rate 19 20 15 Blood Pressure 130/71 106/66 103/62 Pulse Oximetry 99 100 98 Oxygen Delivery Method Room Air Room Air Room Air BMI result Body Mass Index 32.1 <KELLEY Romo - Last Filed: 06/22/22 11:21> Vital Signs - 24 hr 06/22/22 11:17 06/22/22 13:05 06/22/22 14:05 Temperature 97.5 F Pulse Rate 96 76 65 Respiratory Rate 19 20 15 Blood Pressure 130/71 106/66 103/62 Pulse Oximetry 99 100 98 Oxygen Delivery Method Room Air Room Air Room Air BMI result Body Mass Index 32.1 <KELLEY Alas - Last Filed: 06/22/22 17:10> Const General: cooperative, healthy appearing and no acute distress <KELLEY Alas - Last Filed: 06/22/22 17:10> Nutritional Appearance: average body habitus <KELLEY Alas - Last Filed: 06/22/22 17:10> Orientation/consciousness: oriented to person, oriented to place, oriented to time and patient oriented x3 <KELLEY Alas - Last Filed: 06/22/22 17:10> Limitations: no limitations <KELLEY Alas - Last Filed: 06/22/22 17:10> HENMT Head: Yes normal to inspection <KELLEY Alas - Last Filed: 06/22/22 17:10> Ears: hearing grossly normal bilaterally <KELLEY Alas - Last Filed: 06/22/22 17:10> General nose exam: Normal external nose present <KELLEY Alas - Last Filed: 06/22/22 17:10> Face and sinus: Yes normal facial exam, No abrasion and No laceration <KELLEY Alas - Last Filed: 06/22/22 17:10> Mouth: Normal oral and palatal mucosa present, no drooling and no muffled voice <KELLEY Alas - Last Filed: 06/22/22 17:10> Eyes General: appearance normal, both eyes and all related structures <KELLEY Alas - Last Filed: 06/22/22 17:10> Periorbital: periorbital findings normal <Breonna Curtis [place] - Last Filed: 06/22/22 17:10> Eyelids: Yes eyelids normal <Breonna Curtis [place] - Last Filed: 06/22/22 17:10> Conjunctivae: conjunctivae normal <Breonna Curtis [place] - Last Filed: 06/22/22 17:10> Pupils: Equal, round and reactive pupils present <Breonna Curtis [place] - Last Filed: 06/22/22 17:10> EOM: EOMs intact bilaterally <Breonna Curtis [place] - Last Filed: 06/22/22 17:10> Neck Neck: Yes normal visual inspection and Yes full ROM <Breonna Curtis [place] - Last Filed: 06/22/22 17:10> Chest Chest palpation & inspection: normal inspection of the chest <Breonna Curtis [place] - Last Filed: 06/22/22 17:10> Resp Effort & Inspection: normal respiratory effort <Breonna Curtis [place] - Last Filed: 06/22/22 17:10> Auscultation: clear to auscultation bilaterally <Breonna Curtis [place] - Last Filed: 06/22/22 17:10> Cardio Rate: regular rate <Beronna Curtis [place] - Last Filed: 06/22/22 17:10> Rhythm: regular rhythm <Breonna Curtis [place] - Last Filed: 06/22/22 17:10> GI Inspection: Yes normal to inspection <Breonna Curtis [place] - Last Filed: 06/22/22 17:10> Palpation (GI): Soft to palpation <Breonna Curtis [place] - Last Filed: 06/22/22 17:10> Auscultation: normal bowel sounds <Breonna Curtis [place] - Last Filed: 06/22/22 17:10> General: Yes CVA tenderness <Breonna Casillasjeff [place] - Last Filed: 06/22/22 17:10> Back/Spine/Pelvis Back: CVA tenderness <Breonna Casillasjeff [place] - Last Filed: 06/22/22 17:10> Neuro General: oriented to person, oriented to place, oriented to time and patient oriented x3 <Breonna Casillasjeff [place] - Last Filed: 06/22/22 17:10> Cranial nerves: Yes Equal, round and reactive pupils present <Breonna CurtisKELLEY - Last Filed: 06/22/22 17:10> Cognition (Neuro): normal cognition <Breonna CurtisKELLEY - Last Filed: 06/22/22 17:10> Motor exam (neuro): 5/5 motor strength present throughout <Breonna CurtisKELLEY - Last Filed: 06/22/22 17:10> Sensory Exam: Normal double simultaneous stimulation for sensation <Breonna CurtisKELLEY - Last Filed: 06/22/22 17:10> Coordination: [id number] test normal <Breonna CurtisKELLEY - Last Filed: 06/22/22 17:10> Extrem General: Yes normal to inspection, Yes full ROM and Yes capillary refill normal <Breonna CurtisKELLEY - Last Filed: 06/22/22 17:10> Psych Appearance: grossly normal <Breonna CasillasKELLEY aguilar - Last Filed: 06/22/22 17:10> Mental Status: mental status grossly normal <Breonna CasillasKELLEY aguilar - Last Filed: 06/22/22 17:10> Affect: normal affect <Breonna CasillasKELLEY aguilar - Last Filed: 06/22/22 17:10> Attitude: cooperative <Breonna CasillasKELLEY aguilar - Last Filed: 06/22/22 17:10> Thought process: Normal thought process present <Breonna CasillasKELLEY aguilar - Last Filed: 06/22/22 17:10> Thought content: Normal thought content present <Breonnamat CasillasKELLEY aguilar - Last Filed: 06/22/22 17:10> Insight: Good insight present (Psych) <Breonna CasillasKELLEY aguilar - Last Filed: 06/22/22 17:10> Course Course Course Narrative: 2053 26-year-old female no significant medical history presents to the emergency department with right-sided flank pain x3 days pains intermittent in nature and travels down her abdomen and into her bladder region. Patient does have a history of pyelonephritis and kidney stones. Denies fevers and chills. Physical exam right-sided CVA tenderness. No abdominal tenderness. Plan labs, imaging, urine. <Jean Olsen [place] - Last Filed: 06/22/22 11:21> Medications Administered Discontinued Medications Generic Name Dose Route Start Last Admin Trade Name Freq PRN Reason Stop Dose Admin Sodium Chloride 1,000 mls @ 999 mls/hr 06/22/22 11:30 06/22/22 14:08 Ns IV 06/22/22 12:30 Infused .Q1H1M JAZMIN Infusion Ketorolac Tromethamine 30 mg 06/22/22 11:19 06/22/22 12:01 Ketorolac Tromethamine 15 Mg/Ml Vial IVPUSH 06/22/22 11:20 30 mg ONCE ONE Administration Morphine Sulfate 4 mg 06/22/22 14:11 06/22/22 14:30 Morphine Sulfate 4 Mg/Ml Cartridge IVPUSH 06/22/22 14:12 4 mg ONCE ONE Administration Protocol Ondansetron HCl 4 mg 06/22/22 14:11 06/22/22 14:29 Ondansetron Hcl 4 Mg/2 Ml Vial IVPUSH 06/22/22 14:12 4 mg ONCE ONE Administration <KELLEY Romo - Last Filed: 06/22/22 11:21> Medications Administered Discontinued Medications Generic Name Dose Route Start Last Admin Trade Name Freq PRN Reason Stop Dose Admin Sodium Chloride 1,000 mls @ 999 mls/hr 06/22/22 11:30 06/22/22 14:08 Ns IV 06/22/22 12:30 Infused .Q1H1M JAZMIN Infusion Ketorolac Tromethamine 30 mg 06/22/22 11:19 06/22/22 12:01 Ketorolac Tromethamine 15 Mg/Ml Vial IVPUSH 06/22/22 11:20 30 mg ONCE ONE Administration Morphine Sulfate 4 mg 06/22/22 14:11 06/22/22 14:30 Morphine Sulfate 4 Mg/Ml Cartridge IVPUSH 06/22/22 14:12 4 mg ONCE ONE Administration Protocol Ondansetron HCl 4 mg 06/22/22 14:11 06/22/22 14:29 Ondansetron Hcl 4 Mg/2 Ml Vial IVPUSH 06/22/22 14:12 4 mg ONCE ONE Administration <KELLEY Alas - Last Filed: 06/22/22 17:10> Medical Decision Making Medical Decision Making MDM Narrative: Patient is a 26 year old assigned female at presenting to the emergency department today with back pain. Patient's physical exam was unremarkable. Patient's blood work was unremarkable. Patient's urine showed no acute process. Patient's abdominal CT showed possible mesenteric adentitis. I explained my physical exam findings as well as all test results to the patient. I answered all questions asked by the patient. I stressed the importance of the patient taking her medication as prescribed. I stressed the importance of the patient following up with her primary care provider. I stressed the importance of the patient returning to the emergency department immediately if her symptoms were to worsen or if she were to develop any dizziness, shortness of breath, difficulty breathing, chest pain, blurry vision, loss of vision, nausea, vomiting, abdominal pain, fever, chills, back pain, or any other complaints. Patient verbalized agreement and understanding with this treatment plan and discharge. <KELLEY Alas - Last Filed: 06/22/22 17:10> Differential Diagnosis Differential Diagnoses: The differential diagnosis associated with the presentation includes <KELLEY Alas - Last Filed: 06/22/22 17:10> mesenteric addenitis <KELLEY Alas - Last Filed: 06/22/22 17:10> Lab Data MDM Lab Attestation statement: I reviewed the patient's lab results. <KELLEY Alas - Last Filed: 06/22/22 17:10> Result Diagrams: 06/22/22 11:26 06/22/22 11:26 <KELLEY Romo - Last Filed: 06/22/22 11:21> Labs: Lab Results 06/22/22 06/22/22 06/22/22 Range/Units 11:26 11:26 11:26 WBC 4.6 L (4.8-10.8) X10*3/uL RBC 5.01 (4.20-5.50) X10*6/uL Hgb 14.3 (12.0-16.0) g/dl Hct 44.5 (37.0-47.0) % MCV 88.8 (80.0-98.0) fL MCH 28.5 (27.0-33.0) pg MCHC 32.1 (31.0-35.0) g/dl RDW 12.8 (11.0-16.0) % Plt Count 220 (160-400) X10*3/uL MPV 10.3 (9.4-12.3) fL Immature Gran % (Auto) 0.2 (0.0-0.4) % Neut % (Auto) 55.4 (45-73) % Lymph % (Auto) 32.9 (20-40) % [place] % (Auto) 10.2 (2-11) % Eos % (Auto) 0.9 (0-4) % Baso % (Auto) 0.4 (0-2) % Lymph # (Auto) 1.5 (1.2-4.9) X10*3/uL [place] # (Auto) 0.5 (0.1-1.2) X10*3/uL Eos # (Auto) 0.0 (0.0-0.4) X10*3/uL Baso # (Auto) 0.0 (0.0-0.2) X10*3/uL Abs Immat Gran (auto) 0.01 (0.00-0.03) X10*3/uL Absolute Neuts (auto) 2.5 (2.0-8.3) x10*3/uL Absolute Nucleated RBC 0.000 (0.0-0.012) X10*3/uL Nucleated RBC % (auto) 0.0 (0.0-0.2) /100WBC Sodium 143 (135-145) mmol/L Potassium 4.1 (3.3-5.1) mmol/L Chloride 111 H (96-108) mmol/L Carbon Dioxide 24 (22-29) mmol/L Anion Gap 12 (12-20) BUN 15 (9-16) mg/dL Creatinine 0.81 (0.5-1.4) mg/dL Estim Creat Clear Calc 98.9 Estimated GFR > 60 Random Glucose 84 (60-115) mg/dL Calcium 9.1 D (8.4-10.2) mg/dL Magnesium 1.8 (1.6-2.6) mg/dL Total Bilirubin 0.7 (0.0-1.0) mg/dL AST 18 (5-31) U/L ALT 14 (0-31) U/L Alkaline Phosphatase 78 (39-117) U/L Total Protein 6.9 (6.5-8.0) g/dL Albumin 4.0 (3.5-5.0) g/dL Lipase 19 (8-78) U/L Urine Color Urine Appearance Urine pH (5.0-9.0) Ur Specific [place] (1.005-1.025) Urine Protein (Neg-Trace) mg/dL Urine Glucose (UA) (Negative) mg/dL Urine Ketones (Negative) mg/dL Urine Blood (Negative) Urine Nitrite (Negative) Ur Leukocyte Esterase (Negative) Urine Test (NEGATIVE) COVID-19 (IAM) Negative (Negative) COVID-19 Clin Com See Note 06/22/22 06/22/22 Range/Units 11:54 11:54 WBC (4.8-10.8) X10*3/uL RBC (4.20-5.50) X10*6/uL Hgb (12.0-16.0) g/dl Hct (37.0-47.0) % MCV (80.0-98.0) fL MCH (27.0-33.0) pg MCHC (31.0-35.0) g/dl RDW (11.0-16.0) % Plt Count (160-400) X10*3/uL MPV (9.4-12.3) fL Immature Gran % (Auto) (0.0-0.4) % Neut % (Auto) (45-73) % Lymph % (Auto) (20-40) % [place] % (Auto) (2-11) % Eos % (Auto) (0-4) % Baso % (Auto) (0-2) % Lymph # (Auto) (1.2-4.9) X10*3/uL [place] # (Auto) (0.1-1.2) X10*3/uL Eos # (Auto) (0.0-0.4) X10*3/uL Baso # (Auto) (0.0-0.2) X10*3/uL Abs Immat Gran (auto) (0.00-0.03) X10*3/uL Absolute Neuts (auto) (2.0-8.3) x10*3/uL Absolute Nucleated RBC (0.0-0.012) X10*3/uL Nucleated RBC % (auto) (0.0-0.2) /100WBC Sodium (135-145) mmol/L Potassium (3.3-5.1) mmol/L Chloride (96-108) mmol/L Carbon Dioxide (22-29) mmol/L Anion Gap (12-20) BUN (9-16) mg/dL Creatinine (0.5-1.4) mg/dL Estim Creat Clear Calc Estimated GFR Random Glucose (60-115) mg/dL Calcium (8.4-10.2) mg/dL Magnesium (1.6-2.6) mg/dL Total Bilirubin (0.0-1.0) mg/dL AST (5-31) U/L ALT (0-31) U/L Alkaline Phosphatase (39-117) U/L Total Protein (6.5-8.0) g/dL Albumin (3.5-5.0) g/dL Lipase (8-78) U/L Urine Color Yellow Urine Appearance Clear Urine pH 5.5 (5.0-9.0) Ur Specific [place] 1.025 (1.005-1.025) Urine Protein Negative (Neg-Trace) mg/dL Urine Glucose (UA) Negative (Negative) mg/dL Urine Ketones Negative (Negative) mg/dL Urine Blood Negative (Negative) Urine Nitrite Negative (Negative) Ur Leukocyte Esterase Negative (Negative) Urine Test NEGATIVE (NEGATIVE) COVID-19 (IAM) (Negative) COVID-19 Clin Com <KELLEY Romo - Last Filed: 06/22/22 11:21> Lab Results 06/22/22 06/22/22 06/22/22 Range/Units 11:26 11:26 11:26 WBC 4.6 L (4.8-10.8) X10*3/uL RBC 5.01 (4.20-5.50) X10*6/uL Hgb 14.3 (12.0-16.0) g/dl Hct 44.5 (37.0-47.0) % MCV 88.8 (80.0-98.0) fL MCH 28.5 (27.0-33.0) pg MCHC 32.1 (31.0-35.0) g/dl RDW 12.8 (11.0-16.0) % Plt Count 220 (160-400) X10*3/uL MPV 10.3 (9.4-12.3) fL Immature Gran % (Auto) 0.2 (0.0-0.4) % Neut % (Auto) 55.4 (45-73) % Lymph % (Auto) 32.9 (20-40) % [place] % (Auto) 10.2 (2-11) % Eos % (Auto) 0.9 (0-4) % Baso % (Auto) 0.4 (0-2) % Lymph # (Auto) 1.5 (1.2-4.9) X10*3/uL [place] # (Auto) 0.5 (0.1-1.2) X10*3/uL Eos # (Auto) 0.0 (0.0-0.4) X10*3/uL Baso # (Auto) 0.0 (0.0-0.2) X10*3/uL Abs Immat Gran (auto) 0.01 (0.00-0.03) X10*3/uL Absolute Neuts (auto) 2.5 (2.0-8.3) x10*3/uL Absolute Nucleated RBC 0.000 (0.0-0.012) X10*3/uL Nucleated RBC % (auto) 0.0 (0.0-0.2) /100WBC Sodium 143 (135-145) mmol/L Potassium 4.1 (3.3-5.1) mmol/L Chloride 111 H (96-108) mmol/L Carbon Dioxide 24 (22-29) mmol/L Anion Gap 12 (12-20) BUN 15 (9-16) mg/dL Creatinine 0.81 (0.5-1.4) mg/dL Estim Creat Clear Calc 98.9 Estimated GFR > 60 Random Glucose 84 (60-115) mg/dL Calcium 9.1 D (8.4-10.2) mg/dL Magnesium 1.8 (1.6-2.6) mg/dL Total Bilirubin 0.7 (0.0-1.0) mg/dL AST 18 (5-31) U/L ALT 14 (0-31) U/L Alkaline Phosphatase 78 (39-117) U/L Total Protein 6.9 (6.5-8.0) g/dL Albumin 4.0 (3.5-5.0) g/dL Lipase 19 (8-78) U/L Urine Color Urine Appearance Urine pH (5.0-9.0) Ur Specific [place] (1.005-1.025) Urine Protein (Neg-Trace) mg/dL Urine Glucose (UA) (Negative) mg/dL Urine Ketones (Negative) mg/dL Urine Blood (Negative) Urine Nitrite (Negative) Ur Leukocyte Esterase (Negative) Urine Test (NEGATIVE) COVID-19 (IAM) Negative (Negative) COVID-19 Clin Com See Note 06/22/22 06/22/22 Range/Units 11:54 11:54 WBC (4.8-10.8) X10*3/uL RBC (4.20-5.50) X10*6/uL Hgb (12.0-16.0) g/dl Hct (37.0-47.0) % MCV (80.0-98.0) fL MCH (27.0-33.0) pg MCHC (31.0-35.0) g/dl RDW (11.0-16.0) % Plt Count (160-400) X10*3/uL MPV (9.4-12.3) fL Immature Gran % (Auto) (0.0-0.4) % Neut % (Auto) (45-73) % Lymph % (Auto) (20-40) % [place] % (Auto) (2-11) % Eos % (Auto) (0-4) % Baso % (Auto) (0-2) % Lymph # (Auto) (1.2-4.9) X10*3/uL [place] # (Auto) (0.1-1.2) X10*3/uL Eos # (Auto) (0.0-0.4) X10*3/uL Baso # (Auto) (0.0-0.2) X10*3/uL Abs Immat Gran (auto) (0.00-0.03) X10*3/uL Absolute Neuts (auto) (2.0-8.3) x10*3/uL Absolute Nucleated RBC (0.0-0.012) X10*3/uL Nucleated RBC % (auto) (0.0-0.2) /100WBC Sodium (135-145) mmol/L Potassium (3.3-5.1) mmol/L Chloride (96-108) mmol/L Carbon Dioxide (22-29) mmol/L Anion Gap (12-20) BUN (9-16) mg/dL Creatinine (0.5-1.4) mg/dL Estim Creat Clear Calc Estimated GFR Random Glucose (60-115) mg/dL Calcium (8.4-10.2) mg/dL Magnesium (1.6-2.6) mg/dL Total Bilirubin (0.0-1.0) mg/dL AST (5-31) U/L ALT (0-31) U/L Alkaline Phosphatase (39-117) U/L Total Protein (6.5-8.0) g/dL Albumin (3.5-5.0) g/dL Lipase (8-78) U/L Urine Color Yellow Urine Appearance Clear Urine pH 5.5 (5.0-9.0) Ur Specific [place] 1.025 (1.005-1.025) Urine Protein Negative (Neg-Trace) mg/dL Urine Glucose (UA) Negative (Negative) mg/dL Urine Ketones Negative (Negative) mg/dL Urine Blood Negative (Negative) Urine Nitrite Negative (Negative) Ur Leukocyte Esterase Negative (Negative) Urine Test NEGATIVE (NEGATIVE) COVID-19 (IAM) (Negative) COVID-19 Clin Com <KELLEY Alas - Last Filed: 06/22/22 17:10> Independent Interpretation I performed an independent interpretation of an: CT Scan <KELLEY Alas - Last Filed: 06/22/22 17:10> Interpretation: My interpretation is in agreement with the radiologist's impression of this imaging study. EXAMINATION: CT ABDOMEN AND PELVIS WITHOUT CONTRAST? CLINICAL INFORMATION: Flank pain.? COMPARISON: CT scan of the abdomen and pelvis dated 11/07/2011.? TECHNIQUE: Multidetector volumetric imaging was performed from the superior aspect of the liver through the pubic symphysis. Sagittal and coronal reformatted images were obtained on the technologist's workstation. Lack of intravenous and oral contrast limits visceral evaluation. This CT examination was performed using dose optimization techniques as appropriate, variously including the following: *Automated exposure control *Adjustment of mA and/or kV according to patient size (this includes techniques or standardized protocols for targeted exams where dose is matched to indication/reason for exam; i.e. extremities or head) *Use of iterative reconstruction technique DLP: 639 mGy-cm FINDINGS: LUNG BASES: The visualized lung bases are unremarkable.? LIVER, GALLBLADDER, AND BILIARY TREE: No hepatic abnormality. Status post cholecystectomy. PANCREAS: Unremarkable.? SPLEEN: Unremarkable.? ADRENAL GLANDS: Unremarkable.? KIDNEYS AND URETERS: The kidneys are normal in size, shape, and attenuation. No hydronephrosis, hydroureter, or calculi seen. No perinephric stranding. ? BLADDER: Unremarkable.? GASTROINTESTINAL TRACT: The stomach, small bowel and appendix are unremarkable. The colon and rectum are unremarkable. Mild central mesenteric haziness and associated mildly prominent mesenteric lymph nodes without focal abnormality. ABDOMINAL WALL: No significant hernia is appreciated.? LYMPH NODES: No pathologically enlarged lymph nodes. VASCULAR: Unremarkable. PELVIC VISCERA: Anteverted/anteflexed uterus with IUD in place without abnormality. No adnexal abnormality.? OSSEOUS STRUCTURES: Unremarkable.? CT/CT abdomen pelvis wo IV con IMPRESSION: 1.? No acute intra-abdominal/pelvic abnormality to explain the patient's pain. No nephrolithiasis or hydroureteronephrosis. 2.? Mild central mesenteric haziness and associated mildly prominent mesenteric lymph nodes without focal abnormality. This is nonspecific, but can be seen with mesenteric adenitis. Dictated By: Remigio Eagle MD Signed By: Electronically signed by Remigio Eagle MD 06/22/22 1443 <KELLEY Alas - Last Filed: 06/22/22 17:10> Discharge Plan Discharge Clinical Impression: Mesenteric adenitis <KELLEY Romo - Last Filed: 06/22/22 11:21> Patient Disposition: Home, Self-Care <KELLEY Romo - Last Filed: 06/22/22 11:21> Instructions: Mesenteric Adenitis (ED) <KELLEY Romo - Last Filed: 06/22/22 11:21> Additional Instructions: Follow up with your primary care provider. Return to the emergency department immediately if your symptoms worsen or if you develop any dizziness, shortness of breath, difficulty breathing, chest pain, blurry vision, loss of vision, nausea, vomiting, abdominal pain, fever, chills, back pain, or any other complaints. <KELLEY Romo Last Filed: 06/22/22 11:21> Prescriptions: No Action ondansetron 4 mg tablet,disintegrating 4 mg PO Q6H PRN (Reason: nausea and vomiting) Qty: 20 0RF dicyclomine 20 mg tablet 20 mg PO QID PRN (Reason: abdominal pain) Qty: 20 0RF ondansetron 4 mg tablet,disintegrating 4 mg PO Q6-8H PRN (Reason: nausea and vomiting) Qty: 10 0RF <KELLEY Romo - Last Filed: 06/22/22 11:21> Referrals: [facility] [[place] Group] (Call to establish and follow up with a primary care provider. If you already have a primary care provider, please follow up with them.) [facility] [place] [Provider Group] (Call to establish and follow up with a primary care provider. If you already have a primary care provider, please follow up with them.) [facility] [Provider Group] (Call to establish and follow up with a primary care provider. If you already have a primary care provider, please follow up with them.) <KELLEY Romo - Last Filed: 06/22/22 11:21> Interventions: ED Discharge Assessment Last Done: 06/22/22 15:39 <KELLEY Romo Last Filed: 06/22/22 11:21> Discharge Date/Time: 06/22/22 15:42 <KELLYE Romo Last Filed: 06/22/22 11:21> Print Language: Greenlandic <KELLEY Romo - Last Filed: 06/22/22 11:21>
[2022-06-22 11:31] LABS: MANUAL DIFF FLAG NO
[2022-06-22 11:33] LABS: Basophils Percent Auto 0.4 % (0-2); Eosinophils Percent Auto 0.9 % (0-4); Hematocrit 44.5 % (37.0-47.0); Hemoglobin 14.3 g/dl (12.0-16.0); Imm Gran Abs Auto 0.01 X10*3/uL (0.00-0.03); Imm Gran Pct Auto 0.2 % (0.0-0.4); Lymphocytes Absolute Auto 1.5 X10*3/uL (1.2-4.9); Lymphocytes Percent Auto 32.9 % (20-40); Mean Corpuscular HGB Conc 32.1 g/dl (31.0-35.0); Mean Corpuscular Hemoglobin 28.5 pg (27.0-33.0); Mean Corpuscular Volume 88.8 fL (80.0-98.0); Mean Platelet Volume 10.3 fL (9.4-12.3); Monocytes Absolute Auto 0.5 X10*3/uL (0.1-1.2); Monocytes Percent Auto 10.2 % (2-11); Neutrophils Absolute Auto 2.5 x10*3/uL (2.0-8.3); Neutrophils Percent Auto 55.4 % (45-73); Platelet Count 220 X10*3/uL (160-400); Red Blood Count 5.01 X10*6/uL (4.20-5.50); Red Cell Distribution Width 12.8 % (11.0-16.0); White Blood Count 4.6 X10*3/uL (4.8-10.8)
[2022-06-22 11:48] LABS: COVID-19 Test Negative (Negative); IDNOW Serial# 08D9AD1C
[2022-06-22 11:49] LABS: Alanine Aminotransferase 14 U/L (0-31); Alkaline Phosphatase 78 U/L (39-117); Anion Gap 12 (12-20); Aspartate Amino Transferase 18 U/L (5-31); Bilirubin Total 0.7 mg/dL (0.0-1.0); Blood Urea Nitrogen 15 mg/dL (9-16); Calcium 9.1 mg/dL (8.4-10.2); Carbon Dioxide 24 mmol/L (22-29); Chloride 111 mmol/L (96-108); Creatinine Clr Calc Pharmacy 98.9; Estimated Glomerular Filt Rate > 60; Glucose Random 84 mg/dL (60-115); Lipase 19 U/L (8-78); Magnesium 1.8 mg/dL (1.6-2.6); Potassium 4.1 mmol/L (3.3-5.1); Sodium 143 mmol/L (135-145); Total Protein 6.9 g/dL (6.5-8.0)
[2022-06-22] MEDS: 0.9 % Sodium Chloride 1,000 ML 999 ML IV (12:00)
[2022-06-22] MEDS: Ketorolac Tromethamine 15 MG/ML VIAL 30 MG IVPUSH (12:01)
[2022-06-22 12:06] LABS: Appearance Urine Clear; Color Urine Yellow; Glucose Urine UA Negative (Negative); Leukocyte Esterase Urine Negative (Negative); Nitrite Urine Negative (Negative); PH 5.5 (5.0-9.0); Specific Gravity - Urine 1.025 (1.005-1.025); Urine Blood Negative (Negative); Urine Ketones Negative (Negative); Urine Protein Negative (Neg-Trace)
--- NOTE | 2022-06-22 12:07 | PC.NURSE ---
Pt a&ox4, complaining of 8/10 flank pain. Iv inserted, iv fluids running per order, iv meds administered. Call jack within reach. Will continue to monitor.
[2022-06-22 12:08] LABS: UPreg QC Valid YES; Urine Pregnancy NEGATIVE (NEGATIVE)
--- OUTSIDE RECORDS SUMMARY | 2022-06-22 12:10 | XMS_ITS | Continuity of Care Document ---
Author Name Unknown Organization [facility] Address [address] [place] [id number] Care Team Providers Care Map Colorer Name Role Phone Not on Staff, PCP Primary Care Physician Unavail able Encounter [facility] Date(s): 03/21/22 - 04/20/[address] [id number] Attending Physician: Salazar Marin Admitting Physician: AdmSalazar goel Referring Physician: AdmtrSalazar Allergies, Adverse Reactions, Alerts Substance Reaction Severity Status Rocephin destin Anaphylaxis Active Immunizations Given and Recorded Vaccine Date Status Refusal Reason tetanus/diphtheria/pertussis, acel(Tdap) 08/18/21 Given Medications multivitamin, Multivitamins oral tablet, chewable 1 tablet, Chew, Daily, # 90 tablet, 2 Refills, Maintenance, 08/03/21 14:02:00 EDT, Chew Tablet, [id number], Partial fill upon patient request if the prescription is for a schedule IIopioid drug., 1 tablet Chew Daily, 154.94, cm, 07/24... Start Date: 08/03/21 Status: Ordered Problem List Condition Confirmation Course Effective Dates Status Health [facility] Informant History of section Confirmed Active History of delivery Confirmed Active COVID-19 vaccination declined Confirmed Active Social History Social History Type Response Smoking Status Never (less than 100 in lifetime) entered on: 07/26/21 Sex Patient Care team information Care Team Personnel Name: Not on Staff, PCP Position: S Physician (General Medicine) Member Role: PCP Care Team Related Persons Name: EVARISTO WOLFE Address: home [address] [address] Name: NAKUL DALE Address: [id number] Address: [address] [place] [address]
[2022-06-22 13:05] VITALS: BP 106/66; PULSE 76; RESP 20; O2SAT 100
[2022-06-22 14:05] VITALS: BP 103/62; PULSE 65; RESP 15; O2SAT 98
[2022-06-22] MEDS: ondansetron HCL 4 MG/2 ML VIAL IVPUSH (14:29)
[2022-06-22] MEDS: Morphine Sulfate 4 MG/ML CARTRIDGE IVPUSH (14:30)
== END 2022-06-22 15:42 | disposition home or self-care (01) ==
PROVIDERS: Physician Assistant; Emergency Provider Emergency Medicine
DX: I88.0 Nonspecific mesenteric lymphadenitis (principal); R10.9 Unspecified abdominal pain; M54.50 Low back pain, unspecified; Z20.822 Contact with and (suspected) exposure to COVID-19; Z20.828 Contact with and (suspected) exposure to other viral communicable diseases; Z79.899 Other long term (current) drug therapy
CPT/HCPCS: 36415; 74176; 80053; 81003; 81025; 83690; 83735; 85025; 87635; 99285; J1885; J2270; J2405

== ENCOUNTER 2022-06-29 19:09 | Emergency (ER) | payer MEDICAID, SELFPAY ==
--- NOTE | 2022-06-29 | ECG_ITS ---
Test Reason : ABDOMINAL WINTERS Blood Pressure : / mmHG Vent. Rate : 066 BPM Atrial Rate : 066 BPM P-R Int : 134 ms QRS Dur : 082 ms QT Int : 414 ms P-R-T Axes : 050 013 019 degrees QTc Int : 434 ms Normal sinus rhythm with sinus arrhythmia Normal ECG No previous ECGs available Referred By: Generic ED Physician Electronically Signed By:Miles Felix
[2022-06-29 19:42] VITALS: BP 136/67; PULSE 79; RESP 18; TEMP 36.6; O2SAT 99; BMI 32.1
--- NOTE | 2022-06-29 19:44 | ED.ABDPAIN ---
HPI - Abdominal Pain General Chief Complaint: Abdominal Pain <KELLEY Nichole - Last Filed: 06/29/22 19:48> Stated Complaint: radiating pain from back to abd <KELLEY Nichole - Last Filed: 06/29/22 19:48> Time Seen by Provider: 06/29/22 20:56 <KELLEY Nichole - Last Filed: 06/29/22 19:48> Source: patient <Martin Jerome MD - Last Filed: 06/29/22 22:20> Mode of arrival: ambulatory <Martin Jerome MD - Last Filed: 06/29/22 22:20> Limitations: no limitations <Martin Jerome MD - Last Filed: 06/29/22 22:20> History of Present Illness HPI narrative: 26-year-old female who presents emergency department for evaluation lower back, diffuse abdominal pain, diarrhea, dizziness with symptoms starting September 2021 after she had a vaginal delivery. She states that there were no complications from the or the delivery. She states that since then she has been having intermittent lower back pain that radiates to her lower pelvic area. She also states that she is having diffuse abdominal pain that starts immediately after she eats. She states that her stomach feels distended and bloated. She then develops diarrhea. She states she has 4-5 episodes of watery diarrhea per day. She has not noticed any blood in the diarrhea. She states she has had a 30 lb weight gain since onset of these symptoms. She has had nausea associated with eating and with her pain but no vomiting. She denied fever, chills, night sweats. The patient was seen in the emergency department on 06/22/2022, she had negative laboratory evaluation and negative CT scan of the abdomen pelvis. She states her symptoms are persisting therefore she came back to the emergency department for evaluation. She has not been on antibiotics recently. She has not traveled outside of the country recently. <Martin Jerome MD - Last Filed: 06/29/22 22:20> Related Data Home Medications: Previous Rx's Medication Instructions Recorded ondansetron 4 mg disintegrating 4 mg PO Q6H PRN nausea and 12/30/19 tablet vomiting #20 tabs dicyclomine 20 mg tablet 20 mg PO QID PRN abdominal pain 04/21/22 #20 tabs ondansetron 4 mg disintegrating 4 mg PO Q6-8H PRN nausea and 04/21/22 tablet vomiting #10 tabs acetaminophen 500 mg tablet 500 mg PO Q6H PRN fever or pain 06/29/22 (Tylenol Extra Strength) #30 tabs aluminum hydrox-magnesium carb 254 10 ml PO QID PRN dyspepsia #355 mL 06/29/22 mg-237.5 mg/5 mL oral suspension (Gaviscon Extra Strength) omeprazole 20 mg capsule,delayed 20 mg PO DAILY 30 days #30 caps 06/29/22 release <KELLEY Nichole - Last Filed: 06/29/22 19:48> Allergies/Adverse Reactions: Allergies Allergy/AdvReac Type Severity Reaction Status Date / Time ceftriaxone [From Rocephin] Allergy Angioedema Verified 06/29/22 19:46 <KELLEY Nichole - Last Filed: 06/29/22 19:48> Review of Systems Review of Systems Yes all other systems are reviewed and are negative <Martin Jerome MD - Last Filed: 06/29/22 22:20> [facility] Past Medical History [facility] Narrative: Past medical history: Kidney disease 18 years old treated with prednisone and then resolved, gallstone pancreatitis. Past surgical history: Cholecystectomy, , breast reduction. Social history: She denies tobacco use, she occasionally drinks alcohol, she denies drug use. <Martin Jerome MD - Last Filed: 06/29/22 22:20> Medical History: Medical History (Updated 06/29/22 @ 22:14 by Martin Jerome MD) COVID-19 vaccination declined Healthy adult History of delivery <KELLEY Nichole - Last Filed: 06/29/22 19:48> Surgical History: Surgical History (Updated 06/29/22 @ 22:14 by Martin Jerome MD) History of section <KELLEY Nichole - Last Filed: 06/29/22 19:48> Social History Social History: Social History Alcohol intake: current Alcohol intake frequency: holidays/special occasions only Smoked in Last 30 Days: No Use of substances other than those prescribed or required for medical reasons: No Advance Directives: No Advance Directives Information Provided: Yes Patient : No <KELLEY Nichole - Last Filed: 06/29/22 19:48> Physical Exam ED Vital Signs: Vital Signs - 24 hr 06/29/22 19:42 06/29/22 20:32 Temperature 97.8 F 98.6 F Pulse Rate 79 71 Respiratory Rate 18 24 H Blood Pressure 136/67 108/54 L Pulse Oximetry 99 100 Oxygen Delivery Method Room Air Room Air BMI result Body Mass Index 32.1 <KELLEY Nichole - Last Filed: 06/29/22 19:48> Vital Signs - 24 hr 06/29/22 19:42 06/29/22 20:32 Temperature 97.8 F 98.6 F Pulse Rate 79 71 Respiratory Rate 18 24 H Blood Pressure 136/67 108/54 L Pulse Oximetry 99 100 Oxygen Delivery Method Room Air Room Air BMI result Body Mass Index 32.1 <Martin Jerome MD - Last Filed: 06/29/22 22:20> Const Other: Awake, alert, female patient, pleasant, cooperative in no distress, elevated BMI 32.1 <Martin Jerome MD - Last Filed: 06/29/22 22:20> HENMT Head: Yes normal to inspection, Yes normocephalic and Yes atraumatic <Martin Jerome MD - Last Filed: 06/29/22 22:20> Ears: external ears normal <Martin Jerome MD - Last Filed: 06/29/22 22:20> General nose exam: Normal external nose present <Martin Jerome MD - Last Filed: 06/29/22 22:20> Face and sinus: Yes normal facial exam <Martin Jerome MD - Last Filed: 06/29/22 22:20> Mouth: Normal oral and palatal mucosa present <Martin Jerome MD - Last Filed: 06/29/22 22:20> Throat: Yes posterior oropharynx normal <Martin Jerome MD - Last Filed: 06/29/22 22:20> Eyes General: appearance normal, both eyes and all related structures <Martin Jerome MD - Last Filed: 06/29/22 22:20> Pupils: Equal, round and reactive pupils present <MD Sina Fernando Last Filed: 06/29/22 22:20> Neck Neck: Yes normal visual inspection, Yes no lymphadenopathy, Yes trachea midline and Yes supple <Martin Jerome MD - Last Filed: 06/29/22 22:20> Chest Chest palpation & inspection: normal inspection of the chest and normal palpation of entire chest wall <MD Sina Fernando Last Filed: 06/29/22 22:20> Resp Effort & Inspection: normal respiratory effort and able to speak in complete sentences <MD Sina Fernando Last Filed: 06/29/22 22:20> Auscultation: clear to auscultation bilaterally <Martin Jerome MD - Last Filed: 06/29/22 22:20> Cardio Rate: regular rate <MD Sina Fernando Last Filed: 06/29/22 22:20> Rhythm: regular rhythm <MD Sina Fernando Last Filed: 06/29/22 22:20> Heart sounds: S1 normal heart sound present, S2 normal heart sound present and no murmurs <Martin Jerome MD - Last Filed: 06/29/22 22:20> GI Other: Patient does not appear to be distended, she has normoactive bowel sounds, she has diffuse abdominal tenderness with increased tenderness in the epigastric and left lower quadrant areas, no rebound, no voluntary or involuntary guarding <Martin Jerome MD - Last Filed: 06/29/22 22:20> General: Yes no CVA tenderness <MD Sina Fernando Last Filed: 06/29/22 22:20> Back/Spine/Pelvis Back: no CVA tenderness <MD Sina Fernando Last Filed: 06/29/22 22:20> Skin General skin exam: no rashes or lesions noted <MD Sina Fernando Last Filed: 06/29/22 22:20> Neuro Cranial nerves: Yes CN's II-XII intact bilaterally and Yes Equal, round and reactive pupils present <Martin Jerome MD - Last Filed: 06/29/22 22:20> Cognition (Neuro): normal cognition <Martin Jerome MD - Last Filed: 06/29/22 22:20> Motor exam (neuro): 5/5 motor strength present throughout <Martin Jerome MD - Last Filed: 06/29/22 22:20> Extrem General: Yes normal to inspection <Martin Jerome MD - Last Filed: 06/29/22 22:20> Psych Appearance: grossly normal <Martin Jerome MD - Last Filed: 06/29/22 22:20> Speech and movement: Normal speech and movement present <Martin Jerome MD - Last Filed: 06/29/22 22:20> Affect: normal affect <Martin Jerome MD - Last Filed: 06/29/22 22:20> Attitude: cooperative <Martin Jerome MD - Last Filed: 06/29/22 22:20> Thought process: Normal thought process present <Martin Jerome MD - Last Filed: 06/29/22 22:20> Thought content: Normal thought content present <Martin Jerome MD - Last Filed: 06/29/22 22:20> Course Course Course Narrative: RME - 26 yo female with no medical problems who presents to the ER for evaluation of several months of intermittent sharp back pains that radiates to her pelvis associated with bloating and diarrhea. She reports 4-5 episodes of diarrhea, every times she eats. Was seen here 06/22 for the same - CT scan showed mesenteric adenitis. Seen here previously for the same and told she had a GI bug. Plan to repeat lab workup, stool studies if able. Hold off on repeat CT scan <KELLEY Nichole - Last Filed: 06/29/22 19:48> Medical Decision Making Medical Decision Making MDM Narrative: 26-year-old female who presents emergency department for evaluation of abdominal pain, nausea, diarrhea which is been intermittent and she states that started after she had a vaginal delivery September 2021. Patient states that her abdominal pain is worse immediately after eating and that eating triggers loose diarrheal stool with no mucus or blood in the stool. Patient has had a 40 lb weight gain over this period. She has had no concerning systemic symptoms, no recent travel and has not been on antibiotics recently. Initial vital signs were normal, repeat vital signs did reveal an elevated respiratory of 24. Patient has an elevated BMI of 32.1, abdomen revealed diffuse tenderness with increased pain in the epigastric and left lower quadrant areas. The patient had a laboratory evaluation which included a CBC, CMP, lipase, urinalysis and these tests were all normal. Urine test was negative. CT scan from 06/22/2022 without IV contrast was unremarkable. Given the chronicity of her symptoms and the negative workup, I believe the patient needs to be evaluated by a progress man. I did give the patient an outpatient slipped to collect a stool for a GI panel, C diff and ova and parasite evaluation. The patient will be started on Prilosec 20 mg once a day for 1 month and extra-strength Gaviscon 4 times a day as needed for her abdominal pain. She was also advised to take Tylenol for pain. I will give her the name of our on-call progress man to see if she can make an appointment without at PCP referral (patient has no PCP). <Martin Jerome MD - Last Filed: 06/29/22 22:20> Differential Diagnosis Differential Diagnoses: The differential diagnosis associated with the presentation includes <Martin Jerome MD - Last Filed: 06/29/22 22:20> Differential diagnosis includes but is not limited to gastritis, colitis, ulcerative colitis, Crohn's disease, microscopic colitis, infectious colitis, C diff, gastritis, irritable bowel syndrome <Martin Jerome MD - Last Filed: 06/29/22 22:20> Lab Data [facility] Lab Attestation statement: I reviewed the patient's lab results. <Martin Jerome MD - Last Filed: 06/29/22 22:20> Please see [facility] <Martin Jerome MD - Last Filed: 06/29/22 22:20> Result Diagrams: 06/29/22 19:58 06/29/22 19:58 <KELLEY Nichole - Last Filed: 06/29/22 19:48> Labs: Lab Results 06/29/22 06/29/22 06/29/22 Range/Units 19:56 19:56 19:58 WBC 5.9 (4.8-10.8) X10*3/uL RBC 4.51 (4.20-5.50) X10*6/uL Hgb 12.8 (12.0-16.0) g/dl Hct 39.7 (37.0-47.0) % MCV 88.0 (80.0-98.0) fL MCH 28.4 (27.0-33.0) pg MCHC 32.2 (31.0-35.0) g/dl RDW 12.8 (11.0-16.0) % Plt Count 257 (160-400) X10*3/uL MPV 10.2 (9.4-12.3) fL Immature Gran % (Auto) 0.0 (0.0-0.4) % Neut % (Auto) 49.2 (45-73) % Lymph % (Auto) 41.9 H (20-40) % [place] % (Auto) 7.7 (2-11) % Eos % (Auto) 0.5 (0-4) % Baso % (Auto) 0.7 (0-2) % Lymph # (Auto) 2.5 (1.2-4.9) X10*3/uL [place] # (Auto) 0.5 (0.1-1.2) X10*3/uL Eos # (Auto) 0.0 (0.0-0.4) X10*3/uL Baso # (Auto) 0.0 (0.0-0.2) X10*3/uL Abs Immat Gran (auto) 0.00 (0.00-0.03) X10*3/uL Absolute Neuts (auto) 2.9 (2.0-8.3) x10*3/uL Absolute Nucleated RBC 0.000 (0.0-0.012) X10*3/uL Nucleated RBC % (auto) 0.0 (0.0-0.2) /100WBC Sodium (135-145) mmol/L Potassium (3.3-5.1) mmol/L Chloride (96-108) mmol/L Carbon Dioxide (22-29) mmol/L Anion Gap (12-20) BUN (9-16) mg/dL Creatinine (0.5-1.4) mg/dL Estim Creat Clear Calc Estimated GFR Random Glucose (60-115) mg/dL Calcium (8.4-10.2) mg/dL Magnesium (1.6-2.6) mg/dL Total Bilirubin (0.0-1.0) mg/dL Direct Bilirubin (0.0-0.5) mg/dL AST (5-31) U/L ALT (0-31) U/L Alkaline Phosphatase (39-117) U/L Total Protein (6.5-8.0) g/dL Albumin (3.5-5.0) g/dL Lipase (8-78) U/L Urine Color Yellow Urine Appearance Clear Urine pH 7.5 (5.0-9.0) Ur Specific [place] 1.020 (1.005-1.025) Urine Protein Negative (Neg-Trace) mg/dL Urine Glucose (UA) Negative (Negative) mg/dL Urine Ketones Negative (Negative) mg/dL Urine Blood Negative (Negative) Urine Nitrite Negative (Negative) Ur Leukocyte Esterase Negative (Negative) Urine Test NEGATIVE (NEGATIVE) 06/29/22 Range/Units 19:58 WBC (4.8-10.8) X10*3/uL RBC (4.20-5.50) X10*6/uL Hgb (12.0-16.0) g/dl Hct (37.0-47.0) % MCV (80.0-98.0) fL MCH (27.0-33.0) pg MCHC (31.0-35.0) g/dl RDW (11.0-16.0) % Plt Count (160-400) X10*3/uL MPV (9.4-12.3) fL Immature Gran % (Auto) (0.0-0.4) % Neut % (Auto) (45-73) % Lymph % (Auto) (20-40) % [place] % (Auto) (2-11) % Eos % (Auto) (0-4) % Baso % (Auto) (0-2) % Lymph # (Auto) (1.2-4.9) X10*3/uL [place] # (Auto) (0.1-1.2) X10*3/uL Eos # (Auto) (0.0-0.4) X10*3/uL Baso # (Auto) (0.0-0.2) X10*3/uL Abs Immat Gran (auto) (0.00-0.03) X10*3/uL Absolute Neuts (auto) (2.0-8.3) x10*3/uL Absolute Nucleated RBC (0.0-0.012) X10*3/uL Nucleated RBC % (auto) (0.0-0.2) /100WBC Sodium 144 (135-145) mmol/L Potassium 4.2 (3.3-5.1) mmol/L Chloride 108 (96-108) mmol/L Carbon Dioxide 28 (22-29) mmol/L Anion Gap 12 (12-20) BUN 15 (9-16) mg/dL Creatinine 0.74 (0.5-1.4) mg/dL Estim Creat Clear Calc 108.2 Estimated GFR > 60 Random Glucose 81 (60-115) mg/dL Calcium 9.2 (8.4-10.2) mg/dL Magnesium 2.0 (1.6-2.6) mg/dL Total Bilirubin 0.5 (0.0-1.0) mg/dL Direct Bilirubin 0.2 (0.0-0.5) mg/dL AST 16 (5-31) U/L ALT 14 (0-31) U/L Alkaline Phosphatase 65 (39-117) U/L Total Protein 6.8 (6.5-8.0) g/dL Albumin 4.1 (3.5-5.0) g/dL Lipase 44 (8-78) U/L Urine Color Urine Appearance Urine pH (5.0-9.0) Ur Specific [place] (1.005-1.025) Urine Protein (Neg-Trace) mg/dL Urine Glucose (UA) (Negative) mg/dL Urine Ketones (Negative) mg/dL Urine Blood (Negative) Urine Nitrite (Negative) Ur Leukocyte Esterase (Negative) Urine Test (NEGATIVE) <KELLEY Nichole - Last Filed: 06/29/22 19:48> Lab Results 06/29/22 06/29/22 06/29/22 Range/Units 19:56 19:56 19:58 WBC 5.9 (4.8-10.8) X10*3/uL RBC 4.51 (4.20-5.50) X10*6/uL Hgb 12.8 (12.0-16.0) g/dl Hct 39.7 (37.0-47.0) % MCV 88.0 (80.0-98.0) fL MCH 28.4 (27.0-33.0) pg MCHC 32.2 (31.0-35.0) g/dl RDW 12.8 (11.0-16.0) % Plt Count 257 (160-400) X10*3/uL MPV 10.2 (9.4-12.3) fL Immature Gran % (Auto) 0.0 (0.0-0.4) % Neut % (Auto) 49.2 (45-73) % Lymph % (Auto) 41.9 H (20-40) % [place] % (Auto) 7.7 (2-11) % Eos % (Auto) 0.5 (0-4) % Baso % (Auto) 0.7 (0-2) % Lymph # (Auto) 2.5 (1.2-4.9) X10*3/uL [place] # (Auto) 0.5 (0.1-1.2) X10*3/uL Eos # (Auto) 0.0 (0.0-0.4) X10*3/uL Baso # (Auto) 0.0 (0.0-0.2) X10*3/uL Abs Immat Gran (auto) 0.00 (0.00-0.03) X10*3/uL Absolute Neuts (auto) 2.9 (2.0-8.3) x10*3/uL Absolute Nucleated RBC 0.000 (0.0-0.012) X10*3/uL Nucleated RBC % (auto) 0.0 (0.0-0.2) /100WBC Sodium (135-145) mmol/L Potassium (3.3-5.1) mmol/L Chloride (96-108) mmol/L Carbon Dioxide (22-29) mmol/L Anion Gap (12-20) BUN (9-16) mg/dL Creatinine (0.5-1.4) mg/dL Estim Creat Clear Calc Estimated GFR Random Glucose (60-115) mg/dL Calcium (8.4-10.2) mg/dL Magnesium (1.6-2.6) mg/dL Total Bilirubin (0.0-1.0) mg/dL Direct Bilirubin (0.0-0.5) mg/dL AST (5-31) U/L ALT (0-31) U/L Alkaline Phosphatase (39-117) U/L Total Protein (6.5-8.0) g/dL Albumin (3.5-5.0) g/dL Lipase (8-78) U/L Urine Color Yellow Urine Appearance Clear Urine pH 7.5 (5.0-9.0) Ur Specific [place] 1.020 (1.005-1.025) Urine Protein Negative (Neg-Trace) mg/dL Urine Glucose (UA) Negative (Negative) mg/dL Urine Ketones Negative (Negative) mg/dL Urine Blood Negative (Negative) Urine Nitrite Negative (Negative) Ur Leukocyte Esterase Negative (Negative) Urine Test NEGATIVE (NEGATIVE) 06/29/22 Range/Units 19:58 WBC (4.8-10.8) X10*3/uL RBC (4.20-5.50) X10*6/uL Hgb (12.0-16.0) g/dl Hct (37.0-47.0) % MCV (80.0-98.0) fL MCH (27.0-33.0) pg MCHC (31.0-35.0) g/dl RDW (11.0-16.0) % Plt Count (160-400) X10*3/uL MPV (9.4-12.3) fL Immature Gran % (Auto) (0.0-0.4) % Neut % (Auto) (45-73) % Lymph % (Auto) (20-40) % [place] % (Auto) (2-11) % Eos % (Auto) (0-4) % Baso % (Auto) (0-2) % Lymph # (Auto) (1.2-4.9) X10*3/uL [place] # (Auto) (0.1-1.2) X10*3/uL Eos # (Auto) (0.0-0.4) X10*3/uL Baso # (Auto) (0.0-0.2) X10*3/uL Abs Immat Gran (auto) (0.00-0.03) X10*3/uL Absolute Neuts (auto) (2.0-8.3) x10*3/uL Absolute Nucleated RBC (0.0-0.012) X10*3/uL Nucleated RBC % (auto) (0.0-0.2) /100WBC Sodium 144 (135-145) mmol/L Potassium 4.2 (3.3-5.1) mmol/L Chloride 108 (96-108) mmol/L Carbon Dioxide 28 (22-29) mmol/L Anion Gap 12 (12-20) BUN 15 (9-16) mg/dL Creatinine 0.74 (0.5-1.4) mg/dL Estim Creat Clear Calc 108.2 Estimated GFR > 60 Random Glucose 81 (60-115) mg/dL Calcium 9.2 (8.4-10.2) mg/dL Magnesium 2.0 (1.6-2.6) mg/dL Total Bilirubin 0.5 (0.0-1.0) mg/dL Direct Bilirubin 0.2 (0.0-0.5) mg/dL AST 16 (5-31) U/L ALT 14 (0-31) U/L Alkaline Phosphatase 65 (39-117) U/L Total Protein 6.8 (6.5-8.0) g/dL Albumin 4.1 (3.5-5.0) g/dL Lipase 44 (8-78) U/L Urine Color Urine Appearance Urine pH (5.0-9.0) Ur Specific [place] (1.005-1.025) Urine Protein (Neg-Trace) mg/dL Urine Glucose (UA) (Negative) mg/dL Urine Ketones (Negative) mg/dL Urine Blood (Negative) Urine Nitrite (Negative) Ur Leukocyte Esterase (Negative) Urine Test (NEGATIVE) <Martin Jerome MD - Last Filed: 06/29/22 22:20> Discharge Plan Discharge Clinical Impression: Gastritis Qualifiers: Gastritis type: unspecified gastritis Chronicity: chronic Gastritis bleeding: without bleeding Qualified Code(s): K29.50 - Unspecified chronic gastritis without bleeding Abdominal pain Qualifiers: Abdominal location: generalized Qualified Code(s): R10.84 - Generalized abdominal pain Diarrhea Qualifiers: Diarrhea type: unspecified type Qualified Code(s): R19.7 - Diarrhea, unspecified <KELLEY Nichole - Last Filed: 06/29/22 19:48> Patient Disposition: Home, Self-Care <KELLEY Nichole - Last Filed: 06/29/22 19:48> Additional Instructions: Your blood work today was unremarkable this included a complete blood count, comprehensive metabolic panel, lipase, urinalysis and a negative urine test. You had a CT scan on 06/22/2022 which revealed no acute abnormalities to explain your abdominal pain in your diarrhea. Collect a diarrheal stool sample and filled the GI panel cup up to the red line. Do not go beyond the red line, if you do, lab will reject the specimen. Keep the specimen at rib temperature and bring it to the lab as soon as you collected. Collect stool in the other cup that we gave you. Assisted tests for clostridia difficile and for of parasitic infection (ova and parasites). Take Prilosec (omeprazole) 20 mg pills, 1 pill once a day for 1 month. This medication shuts off your acid production and lets the inflammation in your stomach and esophagus heal. Take extra-strength Gaviscon 10 mL (2 tsp) 4 times a day as needed for abdominal pain. Take Tylenol (acetaminophen) 500 mg pills, 2 pills every 6 hours as needed for pain. Follow-up with your doctor in 2 days. Please return to the emergency department if your symptoms get worse or if you develop any symptoms that are concerning to you. Call our GI provider on-call and let them know you have been to the emergency department 3-4 times for your abdominal pain and your diarrhea to see if they can see you as an outpatient without a referral from a primary care doctor. <KELLEY Nichole - Last Filed: 06/29/22 19:48> Prescriptions: New Gaviscon Extra Strength 254-237.5 mg/5 mL suspension 10 ml PO QID PRN (Reason: dyspepsia) Qty: 355 0RF acetaminophen [Tylenol Extra Strength] 500 mg tablet 500 mg PO Q6H PRN (Reason: fever or pain) Qty: 30 0RF omeprazole 20 mg capsule,delayed release(DR/EC) 20 mg PO DAILY 30 Days Qty: 30 0RF No Action ondansetron 4 mg tablet,disintegrating 4 mg PO Q6H PRN (Reason: nausea and vomiting) Qty: 20 0RF dicyclomine 20 mg tablet 20 mg PO QID PRN (Reason: abdominal pain) Qty: 20 0RF ondansetron 4 mg tablet,disintegrating 4 mg PO Q6-8H PRN (Reason: nausea and vomiting) Qty: 10 0RF <KELLEY Nichole - Last Filed: 06/29/22 19:48> Referrals: Christina Tejada MD [Physician] - 2 weeks (Abdominal pain times months, diarrhea times months, CBC, CMP, UA, urine , lipase negative. CT scan abdomen pelvis without IV contrast no cause for symptoms. Ordered GI panel, ova and parasites and C diff for outpatient collection.) <KELLEY Nichole - Last Filed: 06/29/22 19:48>
[2022-06-29 20:05] LABS: MANUAL DIFF FLAG NO
[2022-06-29 20:08] LABS: Basophils Percent Auto 0.7 % (0-2); Eosinophils Percent Auto 0.5 % (0-4); Hematocrit 39.7 % (37.0-47.0); Hemoglobin 12.8 g/dl (12.0-16.0); Lymphocytes Absolute Auto 2.5 X10*3/uL (1.2-4.9); Lymphocytes Percent Auto 41.9 % (20-40); Mean Corpuscular HGB Conc 32.2 g/dl (31.0-35.0); Mean Corpuscular Hemoglobin 28.4 pg (27.0-33.0); Mean Platelet Volume 10.2 fL (9.4-12.3); Monocytes Absolute Auto 0.5 X10*3/uL (0.1-1.2); Monocytes Percent Auto 7.7 % (2-11); Neutrophils Absolute Auto 2.9 x10*3/uL (2.0-8.3); Neutrophils Percent Auto 49.2 % (45-73); Platelet Count 257 X10*3/uL (160-400); Red Blood Count 4.51 X10*6/uL (4.20-5.50); Red Cell Distribution Width 12.8 % (11.0-16.0); White Blood Count 5.9 X10*3/uL (4.8-10.8)
[2022-06-29 20:09] LABS: Appearance Urine Clear; Color Urine Yellow; Glucose Urine UA Negative (Negative); Leukocyte Esterase Urine Negative (Negative); Nitrite Urine Negative (Negative); PH 7.5 (5.0-9.0); Urine Blood Negative (Negative); Urine Ketones Negative (Negative); Urine Protein Negative (Neg-Trace)
[2022-06-29 20:11] LABS: UPreg QC Valid YES; Urine Pregnancy NEGATIVE (NEGATIVE)
[2022-06-29 20:26] LABS: Alanine Aminotransferase 14 U/L (0-31); Albumin Level 4.1 g/dL (3.5-5.0); Alkaline Phosphatase 65 U/L (39-117); Anion Gap 12 (12-20); Aspartate Amino Transferase 16 U/L (5-31); Bilirubin Direct 0.2 mg/dL (0.0-0.5); Bilirubin Total 0.5 mg/dL (0.0-1.0); Blood Urea Nitrogen 15 mg/dL (9-16); Calcium 9.2 mg/dL (8.4-10.2); Carbon Dioxide 28 mmol/L (22-29); Chloride 108 mmol/L (96-108); Creatinine Clr Calc Pharmacy 108.2; Estimated Glomerular Filt Rate > 60; Glucose Random 81 mg/dL (60-115); Lipase 44 U/L (8-78); Potassium 4.2 mmol/L (3.3-5.1); Sodium 144 mmol/L (135-145); Total Protein 6.8 g/dL (6.5-8.0)
[2022-06-29 20:32] VITALS: BP 108/54; PULSE 71; RESP 24; TEMP 37; O2SAT 100
--- NOTE | 2022-06-29 21:17 | PC.NURSE ---
Pt presents to ER with sharp back pain, radiating to the pelvis, that has lasted for several months. Pt stated that she has been having nausea, diarrhea, and pain every time she eats. Pt was seen here last week and left with no improvements.
[2022-06-29] MEDS: Magnesium Hydrox/Alum Hydrox 30 ML ORAL.SUSP PO (22:14)
[2022-06-29] MEDS: Lidocaine HCl Viscous 2 % 15 ML SOLUTION 10 ML PO (22:14)
[2022-06-29] MEDS: PHENobarb/Hyoscy/Atropine/Scop 10 ML ELIXIR PO (22:15)
[2022-06-29 22:22] VITALS: BP 113/60; PULSE 65; RESP 18; TEMP 36.7; O2SAT 98
== END 2022-06-29 22:29 | disposition home or self-care (01) ==
PROVIDERS: Physician Assistant; Emergency Provider Emergency Medicine Emergency Medical Services
DX: K29.50 Unspecified chronic gastritis without bleeding (principal); R10.84 Generalized abdominal pain; R19.7 Diarrhea, unspecified; M54.50 Low back pain, unspecified; I49.8 Other specified cardiac arrhythmias; Z79.899 Other long term (current) drug therapy
CPT/HCPCS: 36415; 80048; 80076; 81003; 81025; 83690; 83735; 85025; 93005; 99283; 99285

== ENCOUNTER 2022-08-20 16:28 | Emergency (ER) | payer MEDICAID, SELFPAY ==
--- NOTE | ~2022-08-20 | US_ITS ---
EXAMINATION: US PELVIS CLINICAL INFORMATION: Pelvic and back pain. Passing blood clots COMPARISON: CT abdomen pelvis 06/22/2022 TECHNIQUE: Ultrasound of the pelvis is performed using both transabdominal and transvaginal transducers along with Doppler. Transvaginal imaging is performed due to inadequate visualization transabdominally. FINDINGS: Uterus: The uterus is anteverted and measures 9.9 x 4.1 x 5.6 cm. The double wall endometrial thickness is 0.3 mm. The uterus is smooth in contour and has normal myometrial echogenicity. No visible fibroid. Adnexa: Both ovaries are visualized. There is normal color flow to the adnexa. Color-flow Doppler imaging of both ovaries is normal and there is no evidence to suggest ovarian torsion. There is no pelvic ascites or fluid collection. Right ovary measures 2.5 x 1.2 x 1.4 cm. Left ovary measures 3.3 x 2.3 x 2.4 cm. The left ovary contains a benign 1.9 x 2.0 x 1.7 cm cyst US/US pelvic ovarian doppler IMPRESSION: Negative study. Benign left ovarian cyst needs no further follow-up.
--- NOTE | ~2022-08-20 | US_ITS ---
EXAMINATION: US PELVIS CLINICAL INFORMATION: Pelvic and back pain. Passing blood clots COMPARISON: CT abdomen pelvis 06/22/2022 TECHNIQUE: Ultrasound of the pelvis is performed using both transabdominal and transvaginal transducers along with Doppler. Transvaginal imaging is performed due to inadequate visualization transabdominally. FINDINGS: Uterus: The uterus is anteverted and measures 9.9 x 4.1 x 5.6 cm. The double wall endometrial thickness is 0.3 mm. The uterus is smooth in contour and has normal myometrial echogenicity. No visible fibroid. Adnexa: Both ovaries are visualized. There is normal color flow to the adnexa. Color-flow Doppler imaging of both ovaries is normal and there is no evidence to suggest ovarian torsion. There is no pelvic ascites or fluid collection. Right ovary measures 2.5 x 1.2 x 1.4 cm. Left ovary measures 3.3 x 2.3 x 2.4 cm. The left ovary contains a benign 1.9 x 2.0 x 1.7 cm cyst US/US pelvic and transvaginal IMPRESSION: Negative study. Benign left ovarian cyst needs no further follow-up.
[2022-08-20 16:32] VITALS: BP 107/62; PULSE 91; RESP 18; TEMP 37.1; O2SAT 97; BMI 34.6
--- OUTSIDE RECORDS SUMMARY | 2022-08-20 16:44 | XMS_ITS | Continuity of Care Document ---
Author Name Unknown Organization [facility] Address [address] [place] [id number] Care Team Providers Care Exercise Physiologist Certified Name Role Phone Not on Staff, PCP Primary Care Physician Unavail able Encounter [facility] Date(s): 06/09/22 - 07/09/[address] [id number] Attending Physician: Salazar Marin Admitting Physician: AdmtrSalazar Referring Physician: AdmtrSalazar Allergies, Adverse Reactions, Alerts Substance Reaction Severity Status Rocephin destin Anaphylaxis Active Immunizations Given and Recorded Vaccine Date Status Refusal Reason tetanus/diphtheria/pertussis, acel(Tdap) 08/18/21 Given Medications multivitamin, Multivitamins oral tablet, chewable 1 tablet, Chew, Daily, # 90 tablet, 2 Refills, Maintenance, 08/03/21 14:02:00 EDT, Chew Tablet, [facility] #[id number], Partial fill upon patient request if the [...] Persons Name: EVARISTO WOLFE Address: home [address] [address] Name: NAKUL DALE Address: [id number] Address: [address] [place] [address]
--- OUTSIDE RECORDS SUMMARY | 2022-08-20 16:44 | XMS_ITS | Continuity of Care Document ---
Author Name Unknown Organization [facility] Address [address] [place] [id number] Care Team Providers Care Rack Washer Name Role Phone Not on Staff, PCP Primary Care Physician Unavail able Encounter [facility] [place] Date(s): 07/05/22 - 08/04/22 [facility] [address] [id number]- Allergies, Adverse Reactions, Alerts Substance Reaction Severity Status Rocephin destin Anaphylaxis Active Immunizations Given and Recorded Vaccine Date Status Refusal Reason tetanus/diphtheria/pertussis, acel(Tdap) 08/18/21 Given Medications multivitamin, Multivitamins oral tablet, chewable 1 tablet, Chew, Daily, # 90 tablet, 2 Refills, Maintenance, 08/03/21 14:02:00 EDT, Chew Tablet, [facility] #[id number], Partial fill upon patient request if the [...] Persons Name: EVARISTO WOLFE Address: home [address] [address] Name: DALENAKUL Nixon Address: [id number] Address: [address] [place] [address]
[2022-08-20 16:46] LABS: MANUAL DIFF FLAG NO
[2022-08-20 16:48] LABS: Basophils Percent Auto 0.3 % (0-2); Eosinophils Percent Auto 0.5 % (0-4); Hematocrit 42.7 % (37.0-47.0); Hemoglobin 13.6 g/dl (12.0-16.0); Imm Gran Abs Auto 0.02 X10*3/uL (0.00-0.03); Imm Gran Pct Auto 0.3 % (0.0-0.4); Lymphocytes Absolute Auto 1.9 X10*3/uL (1.2-4.9); Lymphocytes Percent Auto 28.5 % (20-40); Mean Corpuscular HGB Conc 31.9 g/dl (31.0-35.0); Mean Corpuscular Hemoglobin 28.5 pg (27.0-33.0); Mean Corpuscular Volume 89.5 fL (80.0-98.0); Mean Platelet Volume 10.4 fL (9.4-12.3); Monocytes Absolute Auto 0.3 X10*3/uL (0.1-1.2); Monocytes Percent Auto 4.5 % (2-11); Neutrophils Absolute Auto 4.4 x10*3/uL (2.0-8.3); Neutrophils Percent Auto 65.9 % (45-73); Platelet Count 239 X10*3/uL (160-400); Red Blood Count 4.77 X10*6/uL (4.20-5.50); White Blood Count 6.6 X10*3/uL (4.8-10.8)
[2022-08-20 17:06] LABS: Alanine Aminotransferase 12 U/L (0-31); Albumin Level 4.2 g/dL (3.5-5.0); Alkaline Phosphatase 69 U/L (39-117); Anion Gap 10 (12-20); Aspartate Amino Transferase 16 U/L (5-31); Bilirubin Total 0.9 mg/dL (0.0-1.0); Blood Urea Nitrogen 14 mg/dL (9-16); Calcium 9.8 mg/dL (8.4-10.2); Carbon Dioxide 27 mmol/L (22-29); Chloride 108 mmol/L (96-108); Creatinine Clr Calc Pharmacy 91.5; Estimated Glomerular Filt Rate > 60; Glucose Random 101 mg/dL (60-115); Potassium 4.2 mmol/L (3.3-5.1); Sodium 141 mmol/L (135-145); Total Protein 7.4 g/dL (6.5-8.0)
[2022-08-20 17:32] LABS: UPreg QC Valid YES
[2022-08-20 17:34] LABS: Urine Pregnancy NEGATIVE (NEGATIVE)
[2022-08-20 17:35] LABS: Appearance Urine Clear; Color Urine Orange; Glucose Urine UA Negative (Negative); Leukocyte Esterase Urine Small (1+) (Negative); Nitrite Urine Negative (Negative); PH 5.5 (5.0-9.0); UMIC TRIGGER UACC YES; Urine Blood Large (3+) (Negative); Urine Ketones Negative (Negative); Urine Protein 100 (2+) mg/dL (Neg-Trace)
[2022-08-20 17:35] LABS: HCG Quantitative < 2 mIU/mL
[2022-08-20 17:45] LABS: Bacteria Urine 2+ (None Seen); Hyaline Casts Urine 0-2 /LPF (0-2); UACC Culture Trigger YES
--- NOTE | 2022-08-20 18:12 | ED.GENADULT ---
HPI - General Adult General Chief complaint: Vaginal Bleeding Stated complaint: Pelvic pain/backpain/blood clots Time Seen by Provider: 08/20/22 17:11 Source: patient Mode of arrival: ambulatory Limitations: no limitations History of Present Illness HPI narrative: 26 yold female presents to the ED for pelvic pain, vaginal bleeding clots since yesterday. Patient states this second time this month having her vaginal bleeding. She states having her period earlier in the month. patient states also pelvic pain/cramping. patient states she went through 5 pads today. Related Data Previous Rx's Medication Instructions Recorded ondansetron 4 mg disintegrating 4 mg PO Q6H PRN nausea and 12/30/19 tablet vomiting #20 tabs dicyclomine 20 mg tablet 20 mg PO QID PRN abdominal pain 04/21/22 #20 tabs ondansetron 4 mg disintegrating 4 mg PO Q6-8H PRN nausea and 04/21/22 tablet vomiting #10 tabs acetaminophen 500 mg tablet 500 mg PO Q6H PRN fever or pain 06/29/22 (Tylenol Extra Strength) #30 tabs aluminum hydrox-magnesium carb 254 10 ml PO QID PRN dyspepsia #355 mL 06/29/22 mg-237.5 mg/5 mL oral suspension (Gaviscon Extra Strength) omeprazole 20 mg capsule,delayed 20 mg PO DAILY 30 days #30 caps 06/29/22 release nitrofurantoin 100 mg PO Q12H 7 days #14 caps 08/20/22 monohydrate/macrocrystals 100 mg capsule (Macrobid) Allergies Allergy/AdvReac Type Severity Reaction Status Date / Time ceftriaxone [From Rocephin] Allergy Angioedema Verified 06/29/22 19:46 Review of Systems Review of Systems: pelvic pain and vaginal bleeding Yes all other systems are reviewed and are negative PMFSH Past Medical History Medical History (Updated 08/21/22 @ 00:01 by Ramos Hooper) COVID-19 vaccination declined Healthy adult History of delivery Surgical History (Updated 06/29/22 @ 22:14 by Martin Jerome MD) History of section Social History Social History Alcohol intake: current Alcohol intake frequency: does not drink Smoked in Last 30 Days: No Use of substances other than those prescribed or required for medical reasons: No Advance Directives: No Advance Directives Information Provided: No Physical Exam ED Vital Signs: Vital Signs - 24 hr 08/20/22 16:32 Temperature 98.7 F Pulse Rate 91 Respiratory Rate 18 Blood Pressure 107/62 Pulse Oximetry 97 Oxygen Delivery Method Room Air BMI result Body Mass Index 34.6 Const General: cooperative, healthy appearing, comfortable, no acute distress, well developed, alert, awake and Physically active Orientation/consciousness: oriented to person, oriented to place, oriented to time and patient oriented x3 HENMT Head: Yes normal to inspection, Yes No palpable skull fracture present, Yes normocephalic, Yes atraumatic and No abrasion Eyes General: appearance normal, both eyes and all related structures Neck Neck: Yes normal visual inspection, Yes full ROM, Yes no lymphadenopathy, Yes no meningeal signs, Yes trachea midline, Yes supple, No anterior neck swelling and No tender Chest Chest palpation & inspection: normal inspection of the chest and normal palpation of entire chest wall Resp Effort & Inspection: normal respiratory effort and able to speak in complete sentences Auscultation: clear to auscultation bilaterally Cardio Jugular venous distension: no JVD Heart sounds: S1 normal heart sound present and S2 normal heart sound present GI Inspection: Yes normal to inspection and No abdominal wall ecchymosis Palpation (GI): Tenderness to palpation present (GI) suprapubicly; not in the epigastrum, not in the LLQ, not in the RLQ, not in the LUQ, not in the RUQ, not at McBurney's point, not periumbilically, Brennan's sign negative, obturator sign negative, psoas sign negative, with no rebound tenderness and Rovsing's sign negative and no guarding Other: Positive for vaginal bleeding but negative for hemorrhaging or blood clots General: No CVA tenderness and Yes no CVA tenderness Speculum Exam - Vagina: vaginal bleeding Speculum Exam - Cervix: Cervical os closed and Cervical tenderness present Bimanual exam- vagina & uterus: normal bimanual exam and Cervical tenderness present OB/external & speculum: vaginal bleeding Back/Spine/Pelvis Back: no CVA tenderness, No CVA tenderness and No back tenderness Skin General skin exam: no rashes or lesions noted and elasticity normal Neuro General: oriented to person, oriented to place, oriented to time, patient oriented x3, gait normal, tone normal, moves all extremities, Normal light touch and pain sensation, no meningeal signs, no focal motor deficits, CN's II-XI intact bilaterally and normal sensation to monofilament Extrem General: Yes normal to inspection and Yes full ROM Psych Appearance: grossly normal, well kempt and not disheveled Course Course Course Narrative: 26-year-old female pelvic pain vaginal bleeding 2nd time this month labs ordered ultrasound ordered. negative Medical Decision Making Medical Decision Making [facility] Narrative: 26 yold female presents to the ED for vaginal bleeding, and lower abdominal cramping. Hemoglobin is stable. US negative for ovarian rupture, ovarian torsion, IUD perforation, or fibriods. Patient is hemodynamically stable. Negative pregnay. UA WBC and blood most likely due to vaginal bleeding, but will discharge with antibiotics. Negative for flank pain to indicate kidney stones. Differential Diagnosis Differential Diagnoses: The differential diagnosis associated with the presentation includes (ovariain torsion, ovarian rupture, fibroids, uterine peforation, ectopic , UTI, kidney stones) Admission/Observation Consideration of admission/observation: Escalation of care including admission/observation considered Lab Data [facility] Lab Attestation statement: I reviewed the patient's lab results. 08/20/22 16:40 08/20/22 16:40 Labs: Lab Results 08/20/22 08/20/22 08/20/22 Range/Units 16:40 16:40 17:26 WBC 6.6 (4.8-10.8) X10*3/uL RBC 4.77 (4.20-5.50) X10*6/uL Hgb 13.6 (12.0-16.0) g/dl Hct 42.7 (37.0-47.0) % MCV 89.5 (80.0-98.0) fL MCH 28.5 (27.0-33.0) pg MCHC 31.9 (31.0-35.0) g/dl RDW 13.0 (11.0-16.0) % Plt Count 239 (160-400) X10*3/uL MPV 10.4 (9.4-12.3) fL Immature Gran % (Auto) 0.3 (0.0-0.4) % Neut % (Auto) 65.9 (45-73) % Lymph % (Auto) 28.5 (20-40) % Clarke % (Auto) 4.5 (2-11) % Eos % (Auto) 0.5 (0-4) % Baso % (Auto) 0.3 (0-2) % Lymph # (Auto) 1.9 (1.2-4.9) X10*3/uL Clarke # (Auto) 0.3 (0.1-1.2) X10*3/uL Eos # (Auto) 0.0 (0.0-0.4) X10*3/uL Baso # (Auto) 0.0 (0.0-0.2) X10*3/uL Abs Immat Gran (auto) 0.02 (0.00-0.03) X10*3/uL Absolute Neuts (auto) 4.4 (2.0-8.3) x10*3/uL Absolute Nucleated RBC 0.000 (0.0-0.012) X10*3/uL Nucleated RBC % (auto) 0.0 (0.0-0.2) /100WBC Sodium 141 (135-145) mmol/L Potassium 4.2 (3.3-5.1) mmol/L Chloride 108 (96-108) mmol/L Carbon Dioxide 27 (22-29) mmol/L Anion Gap 10 L (12-20) BUN 14 (9-16) mg/dL Creatinine 0.91 (0.5-1.4) mg/dL Estim Creat Clear Calc 91.5 Estimated GFR > 60 Random Glucose 101 (60-115) mg/dL Calcium 9.8 D (8.4-10.2) mg/dL Total Bilirubin 0.9 (0.0-1.0) mg/dL AST 16 (5-31) U/L ALT 12 (0-31) U/L Alkaline Phosphatase 69 (39-117) U/L Total Protein 7.4 (6.5-8.0) g/dL Albumin 4.2 (3.5-5.0) g/dL Beta HCG, Quant < 2 mIU/mL Urine Color Addison A Urine Appearance Clear Urine pH 5.5 (5.0-9.0) Ur Specific [place] 1.020 (1.005-1.025) Urine Protein 100 (2+) H (Neg-Trace) mg/dL Urine Glucose (UA) Negative (Negative) mg/dL Urine Ketones Negative (Negative) mg/dL Urine Blood Large (3+) H (Negative) Urine Nitrite Negative (Negative) Ur Leukocyte Esterase Small (1+) H (Negative) Urine RBC 3-5 H (0-2) /HPF Urine WBC 11-20 H (0-5) /HPF Ur Squamous Epith Cells 6-10 (0-2) /HPF Urine Bacteria 2+ (None Seen) Hyaline Casts 0-2 (0-2) /LPF Urine Test (NEGATIVE) Chlam trachomat DNA PCR (Not Detect.) N.gonorrhoeae DNA (PCR) (Not Detect.) 08/20/22 08/20/22 Range/Units 17:26 18:34 WBC (4.8-10.8) X10*3/uL RBC (4.20-5.50) X10*6/uL Hgb (12.0-16.0) g/dl Hct (37.0-47.0) % MCV (80.0-98.0) fL MCH (27.0-33.0) pg MCHC (31.0-35.0) g/dl RDW (11.0-16.0) % Plt Count (160-400) X10*3/uL MPV (9.4-12.3) fL Immature Gran % (Auto) (0.0-0.4) % Neut % (Auto) (45-73) % Lymph % (Auto) (20-40) % Clarke % (Auto) (2-11) % Eos % (Auto) (0-4) % Baso % (Auto) (0-2) % Lymph # (Auto) (1.2-4.9) X10*3/uL Clarke # (Auto) (0.1-1.2) X10*3/uL Eos # (Auto) (0.0-0.4) X10*3/uL Baso # (Auto) (0.0-0.2) X10*3/uL Abs Immat Gran (auto) (0.00-0.03) X10*3/uL Absolute Neuts (auto) (2.0-8.3) x10*3/uL Absolute Nucleated RBC (0.0-0.012) X10*3/uL Nucleated RBC % (auto) (0.0-0.2) /100WBC Sodium (135-145) mmol/L Potassium (3.3-5.1) mmol/L Chloride (96-108) mmol/L Carbon Dioxide (22-29) mmol/L Anion Gap (12-20) BUN (9-16) mg/dL Creatinine (0.5-1.4) mg/dL Estim Creat Clear Calc Estimated GFR Random Glucose (60-115) mg/dL Calcium (8.4-10.2) mg/dL Total Bilirubin (0.0-1.0) mg/dL AST (5-31) U/L ALT (0-31) U/L Alkaline Phosphatase (39-117) U/L Total Protein (6.5-8.0) g/dL Albumin (3.5-5.0) g/dL Beta HCG, Quant mIU/mL Urine Color Urine Appearance Urine pH (5.0-9.0) Ur Specific [place] (1.005-1.025) Urine Protein (Neg-Trace) mg/dL Urine Glucose (UA) (Negative) mg/dL Urine Ketones (Negative) mg/dL Urine Blood (Negative) Urine Nitrite (Negative) Ur Leukocyte Esterase (Negative) Urine RBC (0-2) /HPF Urine WBC (0-5) /HPF Ur Squamous Epith Cells (0-2) /HPF Urine Bacteria (None Seen) Hyaline Casts (0-2) /LPF Urine Test NEGATIVE (NEGATIVE) Chlam trachomat DNA PCR NOT DETECTED (Not Detect.) N.gonorrhoeae DNA (PCR) NOT DETECTED (Not Detect.) Independent Interpretation I performed an independent interpretation of an: Ultrasound Radiology Impression Discussion of test interpretation with radiology: I have reviewed the radiologist's reading. Prescription Management I considered prescription management with: Antibiotic Discharge Plan Discharge Clinical Impression: Dysfunctional uterine bleeding, UTI (urinary tract infection) Patient Disposition: Home, Self-Care Instructions: Dysfunctional Uterine Bleeding (ED), Urinary Tract Infection in Women (ED) Additional Instructions: Return to the ED for any abdominal pain, fever, chills, worsening vaginal bleeding, gross hematuria, flank pain, weakness, dizziness or any other concerning symptoms. Please follow up with your OBGYN. Prescriptions: New nitrofurantoin monohyd/m-cryst [Macrobid] 100 mg capsule 100 mg PO Q12H 7 Days Qty: 14 0RF Rx Instructions: must administer with a meal/food No Action ondansetron 4 mg tablet,disintegrating 4 mg PO Q6H PRN (Reason: nausea and vomiting) Qty: 20 0RF dicyclomine 20 mg tablet 20 mg PO QID PRN (Reason: abdominal pain) Qty: 20 0RF ondansetron 4 mg tablet,disintegrating 4 mg PO Q6-8H PRN (Reason: nausea and vomiting) Qty: 10 0RF Gaviscon Extra Strength 254-237.5 mg/5 mL suspension 10 ml PO QID PRN (Reason: dyspepsia) Qty: 355 0RF acetaminophen [Tylenol Extra Strength] 500 mg tablet 500 mg PO Q6H PRN (Reason: fever or pain) Qty: 30 0RF omeprazole 20 mg capsule,delayed release(DR/EC) 20 mg PO DAILY 30 Days Qty: 30 0RF Stand Alone Forms: Work/School Release Interventions: ED Discharge Assessment Last Done: 08/20/22 21:14 Discharge Date/Time: 08/20/22 21:18 Print Language: Estonian
[2022-08-21 00:49] LABS: CT PCR NOT DETECTED (Not Detect.); NG PCR NOT DETECTED (Not Detect.)
[2022-08-21 11:33] LABS: BV Int Neg Control Negative (Negative); BV Int Pos Control Positive (Positive)
== END 2022-08-20 21:18 | disposition home or self-care (01) ==
PROVIDERS: Physician Assistant; Emergency Provider Emergency Medicine
DX: N93.8 Other specified abnormal uterine and vaginal bleeding (principal); N39.0 Urinary tract infection, site not specified; R10.2 Pelvic and perineal pain; M54.50 Low back pain, unspecified; Z79.899 Other long term (current) drug therapy
CPT/HCPCS: 0353U; 36415; 76830; 76856; 80053; 81001; 81025; 84702; 85025; 87086; 87480; 87510; 87660; 93975; 99284

== ENCOUNTER 2022-09-05 10:17 | Emergency (ER) | payer MEDICAID, SELFPAY ==
--- NOTE | ~2022-09-05 | XR_ITS ---
EXAMINATION: XR WRIST, RIGHT CLINICAL INFORMATION: Right lateral wrist pain COMPARISON: None available. TECHNIQUE: PA, lateral, and oblique views of the right wrist. FINDINGS: The bones and soft tissues are normal. No fracture. Alignment is anatomic with normal joint spaces. No erosions or abnormal soft tissue calcifications. XR/XR wrist RT min 3V IMPRESSION: Normal right wrist.
[2022-09-05 10:22] VITALS: BP 128/63; PULSE 59; RESP 18; TEMP 36.9; O2SAT 97; BMI 33.1
--- NOTE | 2022-09-05 10:30 | ED.EXTPRO ---
HPI - Extremity Problem General Chief complaint: Extremity Injury, Upper Stated complaint: R Wrist Pain No Injury Time Seen by Provider: 09/05/22 10:27 Source: patient Mode of arrival: ambulatory Limitations: no limitations History of Present Illness HPI Narrative: Patient is a 26 year old female presenting with 5 days of right wrist pain worsening today. She denies any injury or trauma to the area and states that the pain has progressively been worsening rating it an 8/10 today worse w. movement and better at rest. She is right side dominant and states that moving her wrist causes significant pain which is impeding her ability to perform day-to-day tasks. She denies additional symptoms including fever, chills, chest pain, palpitations, shortness of breath, abdominal pain, nausea, vomiting, rash Related Data Previous Rx's Medication Instructions Recorded ondansetron 4 mg disintegrating 4 mg PO Q6H PRN nausea and 12/30/19 tablet vomiting #20 tabs dicyclomine 20 mg tablet 20 mg PO QID PRN abdominal pain 04/21/22 #20 tabs ondansetron 4 mg disintegrating 4 mg PO Q6-8H PRN nausea and 04/21/22 tablet vomiting #10 tabs acetaminophen 500 mg tablet 500 mg PO Q6H PRN fever or pain 06/29/22 (Tylenol Extra Strength) #30 tabs aluminum hydrox-magnesium carb 254 10 ml PO QID PRN dyspepsia #355 mL 06/29/22 mg-237.5 mg/5 mL oral suspension (Gaviscon Extra Strength) omeprazole 20 mg capsule,delayed 20 mg PO DAILY 30 days #30 caps 06/29/22 release nitrofurantoin 100 mg PO Q12H 7 days #14 caps 08/20/22 monohydrate/macrocrystals 100 mg capsule (Macrobid) metronidazole 500 mg tablet 500 mg PO BID 7 days #14 tabs 08/23/22 ketorolac 10 mg tablet 10 mg PO TID PRN pain 5 days #15 09/05/22 tabs prednisone 20 mg tablet 40 mg PO DAILY 5 days #10 tabs 09/05/22 Allergies Allergy/AdvReac Type Severity Reaction Status Date / Time ceftriaxone [From Rocephin] Allergy Angioedema Verified 09/05/22 10:23 Review of Systems Review of Systems: Constitutional : No Weight loss, No Fever, No Chills, No Fatigue, No Malaise ENT/Mouth : No sore throat, No Rhinorrhea Eyes: No Eye Pain, No Swelling, No Redness Cardiovascular : No Chest Pain, No SOB, No Dyspnea on Exertion, No Orthopnea, No Edema, No Palpitations Respiratory : No Cough, No Sputum, No Wheezing Gastrointestinal : No Nausea, No Vomiting, No Diarrhea, No Constipation, No abdominal Pain, No Hematochezia, No Melena Genitourinary : No Dysuria, No Urinary Frequency, No Hematuria, Musculoskeletal : + joint pain, No Myalgias, + Joint Swelling Skin : No Skin Lesions, No rash Neuro : No Weakness, No Numbness, No Dizziness, No Headache Psych : No Anxiety/Panic, No Depression All other systems reviewed and are negative Yes all other systems are reviewed and are negative [facility] Past Medical History Attestation statement: The following information was validated with the patient. Source: old records reviewed and nursing notes reviewed Medical History (Updated 09/05/22 @ 10:35 by KELLEY Romo) COVID-19 vaccination declined Healthy adult History of delivery Surgical History (Updated 06/29/22 @ 22:14 by Martin Jerome MD) History of section Social History Social History Alcohol intake: current Alcohol intake frequency: does not drink Advance Directives: No Physical Exam Vital Signs: Vital Signs: Last Vital Signs Temp 98.4 F 09/05/22 10:22 Pulse 59 09/05/22 10:22 Resp 18 09/05/22 10:22 BP 128/63 09/05/22 10:22 Pulse Ox 97 09/05/22 10:22 O2 Del Method Room Air 09/05/22 10:22 BMI result Body Mass Index 33.1 vss Appearance: Alert.? Oriented X3.? No acute distress.? Head: Normocephalic, atraumatic, no step-offs or deformities Eyes: Pupils equal, round and reactive to light.? CVS: Normal heart rate and rhythm.? Pulses normal.? Respiratory: No respiratory distress.? Breath sounds normal.? Abdomen: Soft and nontender.? Skin: Skin warm and dry.? Normal skin color.? Normal skin turgor.? Extremities: 5/5 strength to bilateral upper and lower extremities 2+ radial pulses equal bilateral. Full range of motion to bilateral wrists however significant discomfort with range of motion of right wrist. Capillary refill less than 2 seconds equal in bilateral to all upper extremity digits. 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 Normal opposition and reposition, full range of motion to all fingers. No overlying skin changes, no erythema, warmth. No evidence of effusion. Negative valgus, varus, tinnels sign Back: No midline tenderness, no C-spine tenderness, full range of motion, no CVA tenderness bilaterally Neuro: Oriented X 3.? No motor deficit.? No sensory deficit. CN 2-12 intact Course Reevaluation(s) Reevaluation #1: Normal right wrist Xray. Given IM toradol for pain. Time: 11:04 Reevaluation #2: patient will be placed in a volar splint will give her follow-up with the orthopedic team will discharge home on prednisone and Toradol. Educated patient on diagnosis and treatment plan, answered all question, patient verbalizes understanding. At this time patient will be discharged home, advised to return with new or worsening symptoms. Educated on worrisome signs and symptoms and when to return. At this time I feel comfortable discharge home. Time: 11:32 Medications Administered Discontinued Medications Generic Name Dose Route Start Last Admin Trade Name Freq PRN Reason Stop Dose Admin Ketorolac Tromethamine 30 mg 09/05/22 10:54 09/05/22 11:13 Ketorolac Tromethamine 30 Mg/Ml Vial IM 09/05/22 10:55 30 mg ONCE ONE Administration Medical Decision Making Medical Decision Making [facility] Narrative: 1032 26-year-old female presents with complaints of right wrist pain atraumatic in nature x5 days pain worsening. physical exam significant for 5/5 strength to bilateral upper and lower extremities 2+ radial pulses equal bilateral. Full range of motion to bilateral wrists however slight discomfort with range of motion of right wrist. Capillary refill less than 2 seconds equal in bilateral to all upper extremity digits. 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 Normal opposition and reposition, full range of motion to all fingers. No overlying skin changes, no erythema, warmth. No evidence of effusion. Negative valgus, varus, tinnels sign concerns for possible sprain/ strain, gout versus pseudogout versus inflammatory arthritis. Unlikely threatened limb, neurovascular compromise, septic joint. Plan imaging. Will give Toradol for pain. Differential Diagnosis Differential Diagnoses: The differential diagnosis associated with the presentation includes concerns for possible sprain/ strain, gout versus pseudogout versus inflammatory arthritis. Unlikely threatened limb, neurovascular compromise, septic joint. Admission/Observation Consideration of admission/observation: Escalation of care including admission/observation considered Independent Interpretation I performed an independent interpretation of an: Plain X-Ray (normal ) Radiology Impression Discussion of test interpretation with radiology: I have reviewed the radiologist's reading. Core Measures AMI core measures followed: Yes Measure exclusions: not indicated Critical Care Time Critical Care Time Critical Care Time: No Discharge Plan Discharge Clinical Impression: Right wrist pain Patient Disposition: Home, Self-Care Instructions: Wrist Injury (ED), R.I.C.E. Treatment (ED) Additional Instructions: Take your medications as prescribed. If you were prescribed antibiotics today, it is important that you take your medication to their entirety, do not skip any doses, do not finish them early. Follow-up with your primary care provider this week. Follow-up with the orthopedic team if needed. Return to the emergency department with new or worsening symptoms. Such as fevers, chills, chest pain, shortness of breath, nausea, vomiting, dizziness, headache, vision changes, lethargy In case of emergency call 911 Toradol has been sent to your pharmacy, you tolerated this well in the department. Please take this as prescribed do not take this with ibuprofen, or other NSAIDs, do not mix this with alcohol. Side effects of this medication including increased risk for bleeding and possible kidney injury. XR/XR wrist RT min 3V IMPRESSION: Normal right wrist. ? Prescriptions: New prednisone 20 mg tablet 40 mg PO DAILY 5 Days Qty: 10 0RF ketorolac 10 mg tablet 10 mg PO TID PRN (Reason: pain) 5 Days Qty: 15 0RF No Action ondansetron 4 mg tablet,disintegrating 4 mg PO Q6H PRN (Reason: nausea and vomiting) Qty: 20 0RF dicyclomine 20 mg tablet 20 mg PO QID PRN (Reason: abdominal pain) Qty: 20 0RF ondansetron 4 mg tablet,disintegrating 4 mg PO Q6-8H PRN (Reason: nausea and vomiting) Qty: 10 0RF nitrofurantoin monohyd/m-cryst [Macrobid] 100 mg capsule 100 mg PO Q12H 7 Days Qty: 14 0RF Rx Instructions: must administer with a meal/food metronidazole 500 mg tablet 500 mg PO BID 7 Days Qty: 14 0RF Gaviscon Extra Strength 254-237.5 mg/5 mL suspension 10 ml PO QID PRN (Reason: dyspepsia) Qty: 355 0RF acetaminophen [Tylenol Extra Strength] 500 mg tablet 500 mg PO Q6H PRN (Reason: fever or pain) Qty: 30 0RF omeprazole 20 mg capsule,delayed release(DR/EC) 20 mg PO DAILY 30 Days Qty: 30 0RF Referrals: [facility] [place] [facility] [Provider Group] - 1 week Physician,None [Primary Care Provider] - 2 days
[2022-09-05] MEDS: Ketorolac Tromethamine 30 MG/ML VIAL IM (11:13)
--- NOTE | 2022-09-05 11:18 | PC.NURSE ---
pt medicated per MAR
== END 2022-09-05 12:00 | disposition home or self-care (01) ==
PROVIDERS: Emergency Provider Emergency Medicine
DX: M25.531 Pain in right wrist (principal); Z79.899 Other long term (current) drug therapy
CPT/HCPCS: 29125; 73110; 96372; 99283; 99284; J1885

== ENCOUNTER 2022-10-09 09:38 | Outpatient (AMB) | payer MEDICAID, SELFPAY ==
[2022-10-09 09:41] VITALS: BMI 33.1
--- NOTE | 2022-10-09 09:41 | MHC.OFFVIS ---
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 Patient reports her pain is on the dorsal aspect of the hand and base of the wrist. She states when she grabs an item with some weight it causes her to have some soreness in her wrist. Denies numbness and tingling. 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 She states she has pain in the dorsal aspect of her hand and base of her wrist. She also experiences soreness in her wrist with holding an item with some weight. She denies any numbness or tingling. [facility] Medical History (Updated 10/09/22 @ 10:31 by Jessica Wheat PA-C) COVID-19 vaccination declined Healthy adult History of delivery Surgical History (Updated 06/29/22 @ 22:14 by Martin Jerome MD) History of section Social History (Updated 10/09/22 @ 09:48 by Elvia Hall) Alcohol intake: current Alcohol intake frequency: does not drink Patient Tobacco Use Status: Never used Tobacco Current occupational status: unemployed Review of Systems Const All systems reviewed & are unremarkable except as noted in HPI and below Physical Exam Vital Signs: BMI result Body Mass Index 33.1 Const General: cooperative, healthy appearing, comfortable, no acute distress, well developed and alert Orientation/consciousness: patient oriented x3 HEENT Head: Yes normal to inspection, Yes normocephalic and Yes atraumatic Eyes General: appearance normal, both eyes and all related structures Resp Effort & Inspection: normal respiratory effort and able to speak in complete sentences Cardio Rate: regular rate Peripheral pulses: Peripheral pulses 2+ throughout GI Palpation (GI): Soft to palpation Skin Lesions: no lesions Rashes: no rashes Neuro General: patient oriented x3 Extrem Other: Right wrist: Normal to inspection. She does have tenderness over the ulnar aspect of the wrist extending to the DRUJ. There is no DRUJ instability. She has pain with wrist flexion and extension. NVI. Results Reviewed Results Reviewed: X-rays of the bilateral hand obtained in the office today show significant ulnar negative. Assessment & Plan Assessment & Plan (1) Impingement syndrome of right wrist: Code(s): M25.831 - Other specified joint disorders, right wrist Plan She was given an off the shelf Velcro wrist splint to help with immobilization when she is sleeping and carrying any type of object. I would like to order an MRI arthrogram of the right wrist to evaluate the cartilage and ligamentous structures of the wrist. Once the MRI is complete, she will see us back to review the results. Orders: Orders XR hand LT min 3V Today M79.642 - Pain in left hand XR hand RT min 3V Today M79.641 - Pain in right hand FL arthrogram wrist RT Today M25.831 - Other specified joint disorders, right wrist Patient Instructions: Scribed for Jessica Wheat PA-C, by Abiel Haynes medical transcription, on 10/09/2022 at 9:45 AM EST. Jessica Isidro PA-C, have personally reviewed and agree with the information entered by the scribe. Coding Level of Care Code New Pt Level 3 (43546) Diagnoses Impingement syndrome of right wrist M25.831
== END 2022-10-09 10:38 | disposition home or self-care (01) ==
PROVIDERS: Visit Provider Physician Assistant
DX: M25.831 Other specified joint disorders, right wrist (principal)
CPT/HCPCS: 99203

== ENCOUNTER 2022-10-09 09:38 | Outpatient (REF) | payer MEDICAID, SELFPAY ==
--- NOTE | ~2022-10-09 | XR_ITS ---
Examination: X-ray hand, bilateral INDICATION: Pain and bilateral hands. TECHNIQUE: 3 views of the bilateral hands. COMPARISON: Right wrist radiograph 09/05/2022 FINDINGS: Normal alignment in both hands. Cartilage spaces are preserved. No bony erosions. No fracture. Soft tissues are unremarkable. XR/XR hand LT min 3V IMPRESSION: No acute process. No bony erosions.
--- NOTE | ~2022-10-09 | XR_ITS ---
Examination: X-ray hand, bilateral INDICATION: Pain and bilateral hands. TECHNIQUE: 3 views of the bilateral hands. COMPARISON: Right wrist radiograph 09/05/2022 FINDINGS: Normal alignment in both hands. Cartilage spaces are preserved. No bony erosions. No fracture. Soft tissues are unremarkable. XR/XR hand RT min 3V IMPRESSION: No acute process. No bony erosions.
== END 2022-10-09 09:39 | disposition home or self-care (01) ==
LOC: HO.HOSX 09:38
PROVIDERS: Visit Provider Physician Assistant
DX: M79.642 Pain in left hand (principal); M79.641 Pain in right hand; M25.831 Other specified joint disorders, right wrist
CPT/HCPCS: 73130; 99203

== ENCOUNTER 2023-03-01 08:38 | Outpatient (REF) | payer MEDICAID, SELFPAY ==
[2023-03-01 11:45] LABS: Hematocrit 40.5 % (37.0-47.0); Mean Corpuscular HGB Conc 32.1 g/dl (31.0-35.0); Mean Corpuscular Hemoglobin 28.7 pg (27.0-33.0); Mean Corpuscular Volume 89.4 fL (80.0-98.0); Platelet Count 227 X10*3/uL (160-400); Red Blood Count 4.53 X10*6/uL (4.20-5.50); Red Cell Distribution Width 12.8 % (11.0-16.0); White Blood Count 4.2 X10*3/uL (4.8-10.8)
[2023-03-01 12:33] LABS: Alanine Aminotransferase 16 U/L (0-31); Albumin Level 4.3 g/dL (3.5-5.0); Alkaline Phosphatase 57 U/L (39-117); Anion Gap 10 (12-20); Aspartate Amino Transferase 20 U/L (5-31); Bilirubin Total 0.7 mg/dL (0.0-1.0); Blood Urea Nitrogen 13 mg/dL (9-16); Calcium 9.6 mg/dL (8.4-10.2); Carbon Dioxide 25 mmol/L (22-29); Chloride 108 mmol/L (96-108); Cholesterol 161 mg/dL (<200); Estimated Glomerular Filt Rate > 60; Glucose Random 81 mg/dL (60-115); HBS Num1 1.99 mIU/mL (0-7.99); HBc Num1 0.08 S/CO (0.00-0.79); HBsAGNum1 0.48 S/CO (0.00-0.99); HDL Cholesterol 45 mg/dL (>40); HIV AB/AG Nonreactive (Nonreactive); HIV Num 1 0.06 S/CO (0.00-0.99); Hepatitis B Core Antibody Nonreactive (Nonreactive); Hepatitis B Surface Antigen Negative (Negative); LDL Cholesterol Calculated 103 mg/dL (<100); Potassium 3.9 mmol/L (3.3-5.1); Sodium 139 mmol/L (135-145); Total Protein 7.7 g/dL (6.5-8.0); Triglycerides 65 mg/dL (<150); ~HepC Num1 0.13 S/CO (0.00-0.79); ~Hepatitis B Surface Antibody NONREACTIVE (Nonreactive); ~Hepatitis C Antibody Nonreactive (Nonreactive)
[2023-03-04 08:08] LABS: TS Negative Control Passed; TS Panel A 0; TS Panel B 1; TS Positive Control Passed; TSpotTB Negative (Negative)
[2023-03-06 10:12] LABS: RPR Rapid Plasma Reagin NON-REACTIVE (NON-REACTIVE)
== END 2023-03-01 08:39 | disposition home or self-care (01) ==
LOC: HO.HHCL 08:38
PROVIDERS: Visit Provider Nurse Practitioner
DX: Z11.3 Encounter for screening for infections with a predominantly sexual mode of transmission (principal); Z11.1 Encounter for screening for respiratory tuberculosis; Z11.4 Encounter for screening for human immunodeficiency virus [HIV]; N92.0 Excessive and frequent menstruation with regular cycle; E66.9 Obesity, unspecified; Z68.35 Body mass index [BMI] 35.0-35.9, adult
CPT/HCPCS: 0353U; 36415; 80053; 80061; 85027; 86481; 86592; 86704; 86706; 86803; 87340; 87389

== ENCOUNTER 2023-03-05 08:52 | Outpatient (REF) | payer MEDICAID, SELFPAY ==
[2023-03-05 13:56] LABS: CT PCR NOT DETECTED (Not Detect.); NG PCR NOT DETECTED (Not Detect.)
== END 2023-03-05 08:53 | disposition home or self-care (01) ==
LOC: HO.HHCL 08:52
PROVIDERS: Visit Provider Nurse Practitioner
DX: Z11.3 Encounter for screening for infections with a predominantly sexual mode of transmission (principal)
CPT/HCPCS: 0353U

== ENCOUNTER 2023-08-20 14:51 | Emergency (ER) | payer MEDICAID, SELFPAY ==
--- NOTE | ~2023-08-20 | XR_ITS ---
EXAMINATION: XR LUMBOSACRAL SPINE CLINICAL INFORMATION: Low back pain COMPARISON: None available. TECHNIQUE: Three views of the lumbosacral spine. FINDINGS: 5 nonrib-bearing lumbar-type vertebral bodies. No acute visible fracture or dislocation. Vertebral body heights and spaces are maintained. Posterior elements are intact. Paraspinal soft tissues are unremarkable. Visualized bowel gas is unremarkable. XR/XR lumbar spine 2-3V IMPRESSION: No acute visible fracture or dislocation.
[2023-08-20 15:06] VITALS: BP 116/76; PULSE 79; RESP 18; TEMP 36.4; O2SAT 98; BMI 31.8
--- NOTE | 2023-08-20 15:06 | ED_ITS ---
HPI - General Adult General Chief complaint: Back Pain/Injury Stated complaint: Lower back pain Time Seen by Provider: 08/20/23 17:11 Source: patient, RN notes reviewed and old records reviewed Mode of arrival: ambulatory History of Present Illness ED Provider: Loyda Aguayo PA-C HPI narrative: 27-year-old female no significant past medical history presenting to the ED complaining of bilateral low back pain radiating to buttock since yesterday. Denies known injury/trauma or fall. Has been taking OTC medications without relief. Denies dysuria/hematuria, incontinence/retention, numbness, tingling, weakness, abdominal pain Related Data Previous Rx's ?Medication ?Instructions ?Recorded acetaminophen 500 mg tablet 500 mg PO Q6H PRN fever or pain 06/29/22 (Tylenol Extra Strength) #30 tabs acetaminophen 500 mg tablet 500 mg PO Q6H PRN fever or pain 08/20/23 (Tylenol Extra Strength) #14 tabs cyclobenzaprine 5 mg tablet 5 mg PO Q8H PRN pain (scale score 08/20/23 7-10) 5 days #14 tabs lidocaine 5 % topical patch 1 patch topical DAILY PRN pain #30 08/20/23 (Lidoderm) ea naproxen 500 mg tablet 500 mg PO BID PRN pain 10 days #20 08/20/23 tabs Allergies Allergy/AdvReac Type Severity Reaction Status Date / Time ceftriaxone [From Rocephin] Allergy Angioedema Verified 08/20/23 15:09 Review of Systems Review of Systems: Constitutional: No Fever, No Chills ENT/Mouth: No Ear Pain, No Nasal Congestion, No sore throat, No Rhinorrhea, No Swallowing Difficulty Cardiovascular: No Chest Pain, No SOB Respiratory: No Cough, No Sputum, No Wheezing Gastrointestinal: No Nausea, No Vomiting, No Abdominal pain Genitourinary: No Dysuria, No Urinary Frequency, No Hematuria, No Urinary Incontinence/retention, No Flank Pain Musculoskeletal: + joint pain, No Myalgias, No Joint Swelling Skin: No Skin Lesions, No rash Neuro: No Weakness, No Numbness, No Paresthesias Yes all other systems are reviewed and are negative Constitutional: Constitutional: Reports as per HPI Neurologic: Denies Sensory deficit (Neuro) PMFSH Past Medical History Attestation statement: The following information was validated with the patient. Source: old records reviewed Medical History History of delivery COVID-19 vaccination declined Healthy adult Surgical History History of section Social History Social History Alcohol intake: current Alcohol intake frequency: does not drink Patient Tobacco Use Status: Never used Tobacco Advance Directives: No Advance Directives Information Provided: No Do you have a plan to hurt others: No Plan Current occupational status: unemployed Physical Exam ED Vital Signs: Vital Signs - 24 hr 08/20/23 15:06 08/20/23 17:00 08/20/23 19:06 Temperature 97.6 F 98.3 F 98.3 F Pulse Rate 79 69 69 Respiratory Rate 18 18 18 Blood Pressure 116/76 136/79 136/79 Pulse Oximetry 98 98 98 Oxygen Delivery Method Room Air Room Air Room Air BMI result Body Mass Index 31.8 Const General: cooperative, healthy appearing and no acute distress Orientation/consciousness: patient oriented x3 Limitations: no limitations HENMT Head: Yes normal to inspection and Yes atraumatic Ears: hearing grossly normal bilaterally General nose exam: Normal external nose present Face and sinus: Yes normal facial exam Eyes General: appearance normal, both eyes and all related structures EOM: EOMs intact bilaterally Neck Neck: Yes normal visual inspection and Yes no meningeal signs Resp Effort & Inspection: normal respiratory effort and no respiratory distress Cardio Rate: regular rate GI Inspection: Yes normal to inspection Palpation (GI): Soft to palpation, nontender, no guarding and not rigid General: Yes no CVA tenderness Back/Spine/Pelvis Other: No midline cervical/thoracic/lumbar spinous tenderness/step-off or deformity. + bilateral lower lumbar MSK/paraspinal reproducible tenderness. No rash/erythema Back: no CVA tenderness Skin Rashes: no rashes Wounds: no wounds Neuro Other: Strength intact throughout. No saddle anesthesia. Sensation intact to light touch. Neurovascular intact distally General: patient oriented x3, gait normal, tone normal, moves all extremities and no meningeal signs Cranial nerves: Yes CN's II-XII intact bilaterally Gait exam (Neuro): Normal gait present Motor exam (neuro): 5/5 motor strength present throughout Sensory Exam: No Sensory deficit (Neuro) Extrem General: Yes normal to inspection Course Course Course Narrative: This is a rapid medical exam performed by Michael Fernandez NP: Additional HPI, ROS, PE not included below will be deferred to primary provider. Patient is a 27-year-old female presenting to the ED with lower back pain since yesterday. Denies radiation down lower extremities. Denies fall or other injuries. Taking Tylenol and ASA without relief. Denies saddle anesthesia, bowel or bladder in continence. Plan: UA, Urine , lumbar xray XR lumbar spine 2-3V IMPRESSION: No acute visible fracture or dislocation. -UA unremarkable Results discussed with patient including worrisome signs and symptoms and strict return precautions, and when to return to the emergency department. They verbalized understanding and feel safe for discharge at this time. Medications Administered Discontinued Medications Generic Name Dose Route Start Last Admin Trade Name Freq PRN Reason Stop Dose Admin Ketorolac Tromethamine 30 mg 08/20/23 17:46 08/20/23 17:55 Ketorolac Tromethamine 30 Mg/Ml Vial IM 08/20/23 17:47 30 mg ONCE ONE Administration Lidocaine 1 patch 08/20/23 17:46 08/20/23 17:56 Lidocaine 4 % Patch Adh..Patch TRANSDERMA 08/20/23 17:47 1 patch ONCE ONE Administration Protocol Medical Decision Making Medical Decision Making [facility] Narrative: 27-year-old female no significant past medical history presenting to the ED complaining of bilateral low back pain radiating to buttock since yesterday. On exam vital signs stable, NAD, nontoxic appearing, physical exam as noted above with reproducible lumbar paraspinal tenderness. No midline spinous tenderness or red flag symptoms. Abdomen soft and nontender. Ambulating with steady gait. Concern for MSK pain/strain vs herniated disc for sciatica. Low suspicion for cauda equina/cord compression, renal stone/pyelo. Rule UTI. On likely appendicitis/ovarian torsion Plan: urine ordered in triage, pain control Please refer to course for remaining clinical decision making, interpretation of labs/imaging results, and discussions with consultants and/or family members. Differential Diagnosis Differential Diagnoses: The differential diagnosis associated with the presentation includes As above Admission/Observation Consideration of admission/observation: Escalation of care including admission/observation considered Lab Data [facility] Lab Attestation statement: I reviewed the patient's lab results. Labs: Lab Results 08/20/23 Range/Units 17:04 Urine Color Yellow Urine Appearance Clear Urine pH 6.5 (5.0-9.0) Ur Specific [place] 1.015 (1.005-1.025) Urine Protein Negative (Neg-Trace) mg/dL Urine Glucose (UA) Negative (Negative) mg/dL Urine Ketones Negative (Negative) mg/dL Urine Blood Negative (Negative) Urine Nitrite Negative (Negative) Ur Leukocyte Esterase Trace H (Negative) Urine RBC 0-2 (0-2) /HPF Urine WBC 0-5 (0-5) /HPF Ur Squamous Epith Cells 3-5 (0-2) /HPF Urine Bacteria Trace (None Seen) Hyaline Casts 0-2 (0-2) /LPF Urine Test NEGATIVE (NEGATIVE) Radiology Impression Discussion of test interpretation with radiology: I have reviewed the radiologist's reading. External Record Review External record reviewed: Inpatient record, Office record, Outpatient record, Prior outpatient labs, Prior outpatient radiology, Primary care record and Outside ED record Tests considered The following testing was considered but not selected: As above Prescription Management I considered prescription management with: Pain Medication and Antibiotic Discharge Plan Discharge Clinical Impression: Low back pain Patient Disposition: Home, Self-Care Instructions: Acute Low Back Pain (ED) Additional Instructions: Your pain is likely musculoskeletal. Your x-ray and urine were reassuring Flexeril is a muscle relaxer, take at night as it makes you drowsy, do not drive, drink alcohol, or operate machinery while taking it Naproxen as an anti-inflammatory / pain medication, take with food Lidoderm patches are numbing patches, apply to painful area In addition take Tylenol at home If symptoms persist or worsen, pain becomes unbearable, you developed urinary retention or incontinence, or weakness return to the ED Prescriptions: New acetaminophen [Tylenol Extra Strength] 500 mg tablet 500 mg PO Q6H PRN (Reason: fever or pain) Qty: 14 0RF lidocaine [Lidoderm] 5 % adhesive patch,medicated 1 patch topical DAILY MDD remove after 12 hours PRN (Reason: pain) Qty: 30 0RF Rx Instructions: leave on most painful area for up to 12 hrs naproxen 500 mg tablet 500 mg PO BID PRN (Reason: pain) 10 Days Qty: 20 0RF cyclobenzaprine 5 mg tablet 5 mg PO Q8H PRN (Reason: pain (scale score 7-10)) 5 Days Qty: 14 0RF No Action acetaminophen [Tylenol Extra Strength] 500 mg tablet 500 mg PO Q6H PRN (Reason: fever or pain) Qty: 30 0RF Referrals: [place] [Primary Care Provider] - 3 days Interventions: ED Discharge Assessment Last Done: 08/20/23 19:06 Discharge Date/Time: 08/20/23 19:11 Print Language: American
[2023-08-20 17:00] VITALS: BP 136/79; PULSE 69; RESP 18; TEMP 36.8; O2SAT 98
--- OUTSIDE RECORDS SUMMARY | 2023-08-20 17:12 | XMS_ITS | Continuity of Care Document ---
Author Organization [facility] Address [address] [place] [id number]- Care Team Providers Care Technical Service Rep Name Role Phone Not on Staff, PCP Primary Care Physician Unavail able Encounter [facility] Date(s): 11/06/22 - 12/17/[address] [address] Attending Physician: Farhan Orona MD Admitting Physician: Farhan Orona MD Allergies, Adverse Reactions, Alerts Substance Reaction Severity Status Rocephin destin Anaphylaxis Active Immunizations Given and Recorded Vaccine Date Status Refusal Reason tetanus/diphtheria/pertussis, acel(Tdap) 08/18/21 Given Medications No Known Medications Problem List Condition Confirmation Course Effective Dates Status Health St atus Informant History of section Confirmed Active History of delivery Confirmed Active Vital Signs Most recent to oldest [Reference Range]: 1 Height 155 cm (11/15/22 3:43 PM) Weight 83 kg (11/15/22 3:43 PM) Body Mass Index [18.5-24.99 kg/m2] 34.55 kg/m2 *>HHI* (11/15/22 3:43 PM) Dry Weight 83 kg (11/15/22 3:43 PM) Dry Weight Obtained Via Patient/family s tated (11/15/22 3:43 PM) Social History Social History Type Response Smoking Status Never (less than 100 in lifetime) entered on: 07/26/21 Sex Note * Event Display: Adult Preadmission Health Questionnaire Authored Date: [id number] Patient Care team information Care Team Personnel Name: Not on Staff, PCP Position: [facility] Physician (General Medicine) Member Role: PCP Care Team Related Persons Name: EVARISTO WOLFE Address: [address] [address] Name: NAKUL DALE Address: [id number] Address: [address] [place] [address]
--- OUTSIDE RECORDS SUMMARY | 2023-08-20 17:12 | XMS_ITS | Continuity of Care Document ---
Author Organization [facility] Address [address] [place] [id number]- Care Team Providers Care Loom Setter Name Role Phone Not on Staff, PCP Primary Care Physician Unavail able Encounter [facility] Date(s): 11/29/22 - 12/29/22 [facility] [address] [address] Attending Physician: Salazar Marin Admitting Physician: Salazar Marin Referring Physician: AdmtrSalazar Allergies, Adverse Reactions, Alerts Substance Reaction Severity Status Rocephin destin Anaphylaxis Active Immunizations Given and Recorded Vaccine Date Status Refusal Reason tetanus/diphtheria/pertussis, acel(Tdap) 08/18/21 Given Problem List Condition Confirmation Course Effective Dates Status Health St atus Informant History of section Confirmed Active History of delivery Confirmed Active Social History Social History Type Response Smoking Status Never (less than 100 in lifetime) entered on: 07/26/21 Sex Patient Care team information Care Team Personnel Name: Not on Staff, PCP Position: S Physician (General Medicine) Member Role: PCP Care Team Related Persons Name: EVARISTO WOLFE Address: [address] [address] Name: DALENAKUL Address: [address] Address: [address] [place] [address]
--- OUTSIDE RECORDS SUMMARY | 2023-08-20 17:13 | XMS_ITS | Continuity of Care Document ---
Author Organization [facility] Address [address] [place] [phone]- Care Team Providers Care Laserist Name Role Phone Not on Staff, PCP Primary Care Physician Unavail able [place] [facility] [place] 12[place] [facility] [address] [address] Attending Physician: Not on Staff, Attending MD [...] Persons Name: EVARISTO WOLFE Address: [address] [address] Name: NAKUL DALE Address: [address] Address: [address] [place] [address]
[2023-08-20 17:24] LABS: Appearance Urine Clear; Color Urine Yellow; Glucose Urine UA Negative (Negative); Leukocyte Esterase Urine Trace (Negative); Nitrite Urine Negative (Negative); PH 6.5 (5.0-9.0); Specific Gravity - Urine 1.015 (1.005-1.025); UMIC TRIGGER UACC YES; Urine Blood Negative (Negative); Urine Ketones Negative (Negative); Urine Protein Negative (Neg-Trace)
[2023-08-20 17:27] LABS: UPreg QC Valid YES; Urine Pregnancy NEGATIVE (NEGATIVE)
[2023-08-20 17:30] LABS: Bacteria Urine Trace (None Seen); Hyaline Casts Urine 0-2 /LPF (0-2); RBC Urine 0-2 /HPF (0-2); WBC Urine 0-5 /HPF (0-5)
[2023-08-20] MEDS: Ketorolac Tromethamine 30 MG/ML VIAL IM (17:55)
[2023-08-20] MEDS: Lidocaine 4 % Patch ADH..PATCH 1 PATCH TRANSDERMA (17:56)
[2023-08-20 19:06] VITALS: BP 136/79; PULSE 69; RESP 18; TEMP 36.8; O2SAT 98
== END 2023-08-20 19:11 | disposition home or self-care (01) ==
PROVIDERS: Registered Nurse Emergency; Emergency Provider Internal Medicine
DX: M54.50 Low back pain, unspecified (principal)
CPT/HCPCS: 72100; 81001; 81025; 96372; 99283; 99284; J1885

== ENCOUNTER 2024-01-17 09:50 | Emergency (ER) | payer MEDICAID, SELFPAY ==
[2024-01-17 09:53] VITALS: BP 145/84; PULSE 89; RESP 18; TEMP 36.6; O2SAT 100; BMI 35.1
[2024-01-17 10:03] VITALS: BP 112/78; PULSE 85; RESP 16; TEMP 36.9; O2SAT 99
--- NOTE | 2024-01-17 10:24 | ED_ITS ---
HPI - Abdominal Pain General Chief Complaint: Abdominal Pain Stated Complaint: Dizziness, nausea Time Seen by Provider: 01/17/24 10:04 Source: patient, RN notes reviewed and old records reviewed Mode of arrival: ambulatory History of Present Illness ED Provider: Loyda Aguayo PA-C HPI narrative: 28-year-old female presenting to the ED complaining of lower abdominal cramping, nausea x5 days, and lightheadedness x today. LMP 12/16, states she is late with concern of . Denies known fever, headache, vomiting, dysuria/hematuria, vaginal bleeding/discharge, syncope Related Data Previous Rx's ?Medication ?Instructions ?Recorded acetaminophen 500 mg tablet 500 mg PO Q6H PRN fever or pain 06/29/22 (Tylenol Extra Strength) #30 tabs acetaminophen 500 mg tablet 500 mg PO Q6H PRN fever or pain 08/20/23 (Tylenol Extra Strength) #14 tabs cyclobenzaprine 5 mg tablet 5 mg PO Q8H PRN pain (scale score 08/20/23 7-10) 5 days #14 tabs lidocaine 5 % topical patch 1 patch topical DAILY PRN pain #30 08/20/23 (Lidoderm) ea naproxen 500 mg tablet 500 mg PO BID PRN pain 10 days #20 08/20/23 tabs Allergies Allergy/AdvReac Type Severity Reaction Status Date / Time ceftriaxone [From Rocephin] Allergy Angioedema Verified 01/17/24 09:56 Review of Systems Review of Systems Yes all other systems are reviewed and are negative Constitutional: Reports as per HPI Denies Abnormal speech present [facility] Past Medical History Attestation statement: The following information was validated with the patient. Source: old records reviewed Medical History History of delivery COVID-19 vaccination declined Healthy adult Surgical History History of section Social History Social History Alcohol intake: current Alcohol intake frequency: does not drink Patient Tobacco Use Status: Never used Tobacco Smoked in Last 30 Days: No Use of substances other than those prescribed or required for medical reasons: No Advance Directives: No Advance Directives Information Provided: Yes Do you have a plan to hurt others: No Plan Current occupational status: unemployed Physical Exam ED Vital Signs: Vital Signs - 24 hr 01/17/24 09:53 01/17/24 10:03 01/17/24 11:23 Temperature 97.9 F 98.4 F 98.4 F Pulse Rate 89 85 68 Respiratory Rate 18 16 16 Blood Pressure 145/84 H 112/78 107/69 Pulse Oximetry 100 99 96 Oxygen Delivery Method Room Air Room Air Room Air BMI result Body Mass Index 35.1 Const General: cooperative, healthy appearing and no acute distress Orientation/consciousness: patient oriented x3 Limitations: no limitations HENMT Head: Yes normal to inspection and Yes atraumatic Ears: hearing grossly normal bilaterally General nose exam: Normal external nose present Face and sinus: Yes normal facial exam Eyes General: appearance normal, both eyes and all related structures EOM: EOMs intact bilaterally Neck Neck: Yes normal visual inspection and Yes no meningeal signs Resp Effort & Inspection: normal respiratory effort and no respiratory distress Auscultation: clear to auscultation bilaterally Cardio Rate: regular rate Heart sounds: S1 normal heart sound present and S2 normal heart sound present GI Inspection: Yes normal to inspection Palpation (GI): Soft to palpation, nontender, no guarding and not rigid General: Yes no CVA tenderness Back/Spine/Pelvis Back: no CVA tenderness Skin Rashes: no rashes Wounds: no wounds Neuro General: patient oriented x3, gait normal, tone normal, moves all extremities, no meningeal signs, no focal motor deficits and CN's II-XI intact bilaterally Cranial nerves: Yes CN's II-XII intact bilaterally Cognition (Neuro): normal cognition Speech: No Abnormal speech present Gait exam (Neuro): Normal gait present Motor exam (neuro): 5/5 motor strength present throughout and Pronator motor function not present Extrem General: Yes normal to inspection Course Course Course Narrative: -labs reassuring/unremarkable. HCG negative. UA negative. > 1159--on re-evaluation patient reports symptomatic improvement. Requesting discharge home. Results discussed with patient including worrisome signs and symptoms and strict return precautions, and when to return to the emergency department. They verbalized understanding and feel safe for discharge at this time. Medical Decision Making Medical Decision Making MDM Narrative: 28-year-old female presenting to the ED complaining of lower abdominal cramping, nausea x5 days, and lightheadedness x today. On exam VSS, NAD, nontoxic appearing, abdomen soft/nontender, no focal neuro deficits. Denies lightheadedness at present. Concern for vs metabolic abnormalities. Rule out infectious etiology. Low suspicion for ACS or PE or SAH. Unlikely appendicitis/diverticulitis or ovarian torsion/TOA without tenderness on exam Plan: EKG, labs, UA, viral testing Please refer to course for remaining clinical decision making, interpretation of labs/imaging results, and discussions with consultants and/or family members. Differential Diagnosis Differential Diagnoses: The differential diagnosis associated with the presentation includes As above Admission/Observation Consideration of admission/observation: Escalation of care including admission/observation considered Lab Data MDM Lab Attestation statement: I reviewed the patient's lab results. 01/17/24 10:29 01/17/24 10:29 Labs: Lab Results 01/17/24 01/17/24 Range/Units 10:17 10:29 WBC 7.7 (4.8-10.8) X10*3/uL RBC 4.74 (4.20-5.50) X10*6/uL Hgb 14.2 (12.0-16.0) g/dl Hct 41.9 (37.0-47.0) % MCV 88.4 (80.0-98.0) fL MCH 30.0 (27.0-33.0) pg MCHC 33.9 (31.0-35.0) g/dl RDW 12.4 (11.0-16.0) % Plt Count 246 (160-400) X10*3/uL MPV 10.3 (9.4-12.3) fL Immature Gran % (Auto) 0.3 (0.0-0.4) % Neut % (Auto) 57.7 (45-73) % Lymph % (Auto) 34.0 (20-40) % [place] % (Auto) 6.6 (2-11) % Eos % (Auto) 0.9 (0-4) % Baso % (Auto) 0.5 (0-2) % Lymph # (Auto) 2.6 (1.2-4.9) X10*3/uL [place] # (Auto) 0.5 (0.1-1.2) X10*3/uL Eos # (Auto) 0.1 (0.0-0.4) X10*3/uL Baso # (Auto) 0.0 (0.0-0.2) X10*3/uL Abs Immat Gran (auto) 0.02 (0.00-0.03) X10*3/uL Absolute Neuts (auto) 4.5 (2.0-8.3) x10*3/uL Absolute Nucleated RBC 0.000 (0.0-0.012) X10*3/uL Nucleated RBC % (auto) 0.0 (0.0-0.2) /100WBC Sodium 140 (135-145) mmol/L Potassium 3.7 (3.3-5.1) mmol/L Chloride 107 (96-108) mmol/L Carbon Dioxide 24 (22-29) mmol/L Anion Gap 13 (12-20) BUN 15 (9-16) mg/dL Creatinine 0.90 (0.5-1.4) mg/dL Estim Creat Clear Calc 91.5 Estimated GFR > 60 Random Glucose 91 (60-115) mg/dL Calcium 10.1 (8.4-10.2) mg/dL Magnesium 1.9 (1.6-2.6) mg/dL Total Bilirubin 0.6 (0.0-1.0) mg/dL Direct Bilirubin 0.2 (0.0-0.5) mg/dL AST 24 (5-31) U/L ALT 25 (0-31) U/L Alkaline Phosphatase 70 (39-117) U/L Total Protein 7.9 (6.5-8.0) g/dL Albumin 4.4 (3.5-5.0) g/dL Lipase 34 (8-78) U/L Beta HCG, Quant < 2 mIU/mL Urine Color Yellow Urine Appearance Clear Urine pH 6.0 (5.0-9.0) Ur Specific [place] <= 1.005 (1.005-1.025) Urine Protein Negative (Neg-Trace) mg/dL Urine Glucose (UA) Negative (Negative) mg/dL Urine Ketones Negative (Negative) mg/dL Urine Blood Negative (Negative) Urine Nitrite Negative (Negative) Ur Leukocyte Esterase Negative (Negative) Urine Test NEGATIVE (NEGATIVE) Independent Interpretation I performed an independent interpretation of an: EKG Radiology Impression Discussion of test interpretation with radiology: I have reviewed the radiologist's reading. External Record Review External record reviewed: Inpatient record, Office record, Outpatient record, Prior outpatient labs, Prior outpatient radiology, Primary care record and Outside ED record Tests considered The following testing was considered but not selected: As above Social Determinants Patient?s care significantly limited by Social Determinants of Health including: Other Social Determinant of Health Discharge Plan Discharge Clinical Impression: Abdominal cramping, Episodic lightheadedness Patient Disposition: Home, Self-Care Instructions: Abdominal Pain (ED), Lightheadedness (ED) Additional Instructions: Your blood work is reassuring Your was negative Please have close follow-up with your doctor Change positions slowly Make sure in taking plenty of fluids If her symptoms persist or worsen return to the emergency department Prescriptions: No Action acetaminophen [Tylenol Extra Strength] 500 mg tablet 500 mg PO Q6H PRN (Reason: fever or pain) Qty: 14 0RF lidocaine [Lidoderm] 5 % adhesive patch,medicated 1 patch topical DAILY MDD remove after 12 hours PRN (Reason: pain) Qty: 30 0RF Rx Instructions: leave on most painful area for up to 12 hrs naproxen 500 mg tablet 500 mg PO BID PRN (Reason: pain) 10 Days Qty: 20 0RF cyclobenzaprine 5 mg tablet 5 mg PO Q8H PRN (Reason: pain (scale score 7-10)) 5 Days Qty: 14 0RF acetaminophen [Tylenol Extra Strength] 500 mg tablet 500 mg PO Q6H PRN (Reason: fever or pain) Qty: 30 0RF Referrals: [facility] [Primary Care Provider] - 3 days Print Language: East Timorese
--- NOTE | 2024-01-17 10:33 | ECG_ITS ---
Test Reason : DIZZINESS Blood Pressure : / mmHG Vent. Rate : 067 BPM Atrial Rate : 067 BPM P-R Int : 118 ms QRS Dur : 086 ms QT Int : 400 ms P-R-T Axes : -01 -02 -02 degrees QTc Int : 422 ms Normal sinus rhythm Minimal voltage criteria for LVH, may be normal variant ( R in aVL ) Borderline ECG When compared to the previous EKG of No significant changes seen Referred By: Loyda Aguayo Electronically Signed By:Miles Felix
[2024-01-17 10:36] LABS: MANUAL DIFF FLAG NO
[2024-01-17 10:37] LABS: Appearance Urine Clear; Color Urine Yellow; Glucose Urine UA Negative (Negative); Leukocyte Esterase Urine Negative (Negative); Nitrite Urine Negative (Negative); Specific Gravity - Urine <= 1.005 (1.005-1.025); UPreg QC Valid YES; Urine Blood Negative (Negative); Urine Ketones Negative (Negative); Urine Protein Negative (Neg-Trace)
[2024-01-17 10:37] LABS: Basophils Percent Auto 0.5 % (0-2); Eosinophils Absolute Auto 0.1 X10*3/uL (0.0-0.4); Eosinophils Percent Auto 0.9 % (0-4); Hematocrit 41.9 % (37.0-47.0); Hemoglobin 14.2 g/dl (12.0-16.0); Imm Gran Abs Auto 0.02 X10*3/uL (0.00-0.03); Imm Gran Pct Auto 0.3 % (0.0-0.4); Lymphocytes Absolute Auto 2.6 X10*3/uL (1.2-4.9); Mean Corpuscular HGB Conc 33.9 g/dl (31.0-35.0); Mean Corpuscular Volume 88.4 fL (80.0-98.0); Mean Platelet Volume 10.3 fL (9.4-12.3); Monocytes Absolute Auto 0.5 X10*3/uL (0.1-1.2); Monocytes Percent Auto 6.6 % (2-11); Neutrophils Absolute Auto 4.5 x10*3/uL (2.0-8.3); Neutrophils Percent Auto 57.7 % (45-73); Platelet Count 246 X10*3/uL (160-400); Red Blood Count 4.74 X10*6/uL (4.20-5.50); Red Cell Distribution Width 12.4 % (11.0-16.0); White Blood Count 7.7 X10*3/uL (4.8-10.8)
[2024-01-17 10:38] LABS: Urine Pregnancy NEGATIVE (NEGATIVE)
--- OUTSIDE RECORDS SUMMARY | 2024-01-17 10:40 | XMS_ITS | Continuity of Care Document ---
Author Organization [facility] Address [address] [place] [id number]- Care Team Providers Care Recycling Crew Supervisor Name Role Phone Not on Staff, PCP Primary Care Physician Unavail able [facility]counter [facility] Date(s): 08/10/23 - 09/09/23 [facility] [address] [address] Allergies, Adverse Reactions, Alerts Substance Reaction [...] Persons Name: EVARISTO WOLFE Address: [address] [address] Name: NAKUL DALE Address: [address] Address: [address] [place] [address] [place]
--- OUTSIDE RECORDS SUMMARY | 2024-01-17 10:42 | XMS_ITS | Continuity of Care Document ---
Author Organization [facility] Address [address] [place] [address]- Care Team Providers Care Final Application Reviewer Name Role Phone Not on Staff, PCP Primary Care Physician Unavail able Encounter [facility] Date(s): 08/13/23 - 10/10/23 [facility] [address] [address] Attending Physician: Not on Staff, Attending [...] Persons Name: EVARISTO WOLFE Address: [address] [address] Name: NAKUL DALE Address: [address] Address: [address] [place] [address]
[2024-01-17 10:49] LABS: Magnesium 1.9 mg/dL (1.6-2.6)
[2024-01-17 10:51] LABS: Alanine Aminotransferase 25 U/L (0-31); Albumin Level 4.4 g/dL (3.5-5.0); Alkaline Phosphatase 70 U/L (39-117); Anion Gap 13 (12-20); Aspartate Amino Transferase 24 U/L (5-31); Bilirubin Direct 0.2 mg/dL (0.0-0.5); Bilirubin Total 0.6 mg/dL (0.0-1.0); Blood Urea Nitrogen 15 mg/dL (9-16); Calcium 10.1 mg/dL (8.4-10.2); Carbon Dioxide 24 mmol/L (22-29); Chloride 107 mmol/L (96-108); Creatinine Clr Calc Pharmacy 91.5; Estimated Glomerular Filt Rate > 60; Glucose Random 91 mg/dL (60-115); Lipase 34 U/L (8-78); Potassium 3.7 mmol/L (3.3-5.1); Sodium 140 mmol/L (135-145); Total Protein 7.9 g/dL (6.5-8.0)
[2024-01-17 10:58] LABS: HCG Quantitative < 2 mIU/mL
[2024-01-17 11:23] VITALS: BP 107/69; PULSE 68; RESP 16; TEMP 36.9; O2SAT 96
[2024-01-17 12:13] VITALS: BP 107/69; PULSE 68; RESP 16; TEMP 36.9; O2SAT 96
== END 2024-01-17 12:13 | disposition home or self-care (01) ==
PROVIDERS: Physician Assistant; Emergency Provider Emergency Medicine
DX: R10.30 Lower abdominal pain, unspecified (principal); R11.2 Nausea with vomiting, unspecified; R42 Dizziness and giddiness; R94.31 Abnormal electrocardiogram [ECG] [EKG]; Z79.899 Other long term (current) drug therapy
CPT/HCPCS: 36415; 80048; 80076; 81003; 81025; 83690; 83735; 84702; 85025; 93005; 99283; 99284

== ENCOUNTER → 2024-01-17 10:33 | Outpatient (BNV) | payer MEDICAID, SELFPAY | PROVIDERS: Emergency Provider Emergency Medicine; Visit Provider Internal Medicine Cardiovascular Disease | DX: R42 Dizziness and giddiness (principal) | CPT/HCPCS: 93010 ==

== ENCOUNTER 2024-02-20 19:40 | Emergency (ER) | payer MEDICAID, SELFPAY ==
--- NOTE | ~2024-02-20 | US_ITS ---
EXAMINATION: US OBSTETRICAL ULTRASOUND CLINICAL INFORMATION: Left lower quadrant pain with positive test COMPARISON: CT abdomen and pelvis 06/22/2022, OB ultrasound 12/30/2019 LMP: 01/19/2024. Gestational age by maternal dates is 4 weeks 4 days. Estimated date of delivery by maternal dates is 10/25/2024. TECHNIQUE: Both transabdominal and endovaginal scanning was performed. FINDINGS: The uterus measures 8.5 x 4.9 x 6.5 cm. The endometrium appears thickened at 1.6 cm. Small amount of fluid is present in the endometrial canal. No gestational sac or yolk sac is seen. A pole or heart beat is not detected. The right ovary measures 4.4 x 1.8 x 2.8 cm and appears normal with a 1.5 cm cyst. Left ovary measures 2.1 x 1.3 x 1.4 cm and appears unremarkable. No free fluid is present in the cul-de-sac US/US OB <= 14 weeks fetus IMPRESSION: No intrauterine is identified at this time. Correlation with beta hCG levels is recommended, as nonvisualization of a gestational sac could be due to an early stage of . Alternatively, lack of an intrauterine gestational sac may also be seen with missed or ectopic , although no adnexal mass is seen to strongly suggest ectopic . Short-term sonographic follow-up and serial beta hCG levels are recommended to assess for development of an intrauterine gestational sac. Electronically signed by: Anderson Montenegro MD 02/20/2024 10:14 PM [facility]
[2024-02-20 19:43] VITALS: BP 132/76; PULSE 102; RESP 18; TEMP 37.1; O2SAT 99; BMI 34.9
--- NOTE | 2024-02-20 19:43 | ECG_ITS ---
Test Reason : LIGHTHEADED Blood Pressure : / mmHG Vent. Rate : 087 BPM Atrial Rate : 087 BPM P-R Int : 116 ms QRS Dur : 084 ms QT Int : 354 ms P-R-T Axes : 012 006 019 degrees QTc Int : 425 ms Normal sinus rhythm Minimal voltage criteria for LVH, may be normal variant ( R in aVL ) Borderline ECG When compared with ECG of 17-JAN-2024 10:42, No significant change was found Referred By: Loyda Aguayo Electronically Signed By:MANDI STONER
--- NOTE | 2024-02-20 19:43 | ED_ITS ---
HPI - Dizziness General Chief Complaint: Abdominal Pain Stated Complaint: dizzy Time Seen by Provider: 02/20/24 21:52 History of Present Illness ED Provider: Kyler FREEMAN Narrative: The patient is a 28-year-old female. She says that she was slightly late for her. A few days ago and so she took a home test which tested positive. Her last period was January 18. Over the last 2 days the patient has had a lot of loose stools and felt lightheaded. She has also had some crampy discomfort to her left lower abdomen. She therefore came to the emergency department. No fevers. No nausea or vomiting. No vaginal bleeding. The patient reports that she has 4 children aged 2, 3, 4, and 6. She has had 2 miscarriages in the past. Related Data Previous Rx's ?Medication ?Instructions ?Recorded acetaminophen 500 mg tablet 500 mg PO Q6H PRN fever or pain 06/29/22 (Tylenol Extra Strength) #30 tabs acetaminophen 500 mg tablet 500 mg PO Q6H PRN fever or pain 08/20/23 (Tylenol Extra Strength) #14 tabs cyclobenzaprine 5 mg tablet 5 mg PO Q8H PRN pain (scale score 08/20/23 7-10) 5 days #14 tabs lidocaine 5 % topical patch 1 patch topical DAILY PRN pain #30 08/20/23 (Lidoderm) ea naproxen 500 mg tablet 500 mg PO BID PRN pain 10 days #20 08/20/23 tabs Allergies Allergy/AdvReac Type Severity Reaction Status Date / Time ceftriaxone [From Rocephin] Allergy Angioedema Verified 02/20/24 19:46 Review of Systems 2 Review of Systems: Yes all other systems are reviewed and are negative [facility] Past Medical History Medical History History of delivery COVID-19 vaccination declined Healthy adult Surgical History History of section Social History Social History Alcohol intake: current Alcohol intake frequency: does not drink Patient Tobacco Use Status: Never used Tobacco Advance Directives: No Advance Directives Information Provided: Yes Current occupational status: unemployed Physical Exam 2 Vital Signs: Vital Signs: Last Vital Signs Temp 98.4 F 02/20/24 22:13 Pulse 94 02/20/24 22:13 Resp 16 02/20/24 22:13 BP 132/88 02/20/24 22:13 Pulse Ox 98 02/20/24 22:13 O2 Del Method Room Air 02/20/24 22:13 BMI result Body Mass Index 34.9 Const: Other: The patient is awake and alert, calm and cooperative. She does not appear in acute distress. HEENT: Head: Yes normal to inspection Face and sinus: Yes normal facial exam Mouth: Normal oral and palatal mucosa present and moist mucous membranes Eyes: General: appearance normal, both eyes and all related structures Neck: Neck: Yes full ROM Resp: Effort & Inspection: normal respiratory effort Auscultation: clear to auscultation bilaterally Cardio: Rate: regular rate Rhythm: regular rhythm Heart sounds: S1 normal heart sound present and S2 normal heart sound present GI: Other: My initial impression was that she had a soft and nontender abdomen. However on re-exam she seemed to have some left lower quadrant abdominal tenderness. Skin: Other: Skin is dry and unremarkable Neuro: Other: The patient is awake and alert with a normal mental status. Cranial nerves are grossly intact. She moves her extremities normally. Extrem: Other: No peripheral edema Course Course Course Narrative: This is a Rapid Medical Exam performed in triage by Loyda Aguayo PA-C. Full HPI, ROS and PE to be performed by primary ED provider. 28 yo F (2 miscarriages) presenting to the ED c/o +home test on Sunday, now with left lower abdominal cramping, nausea, diarrhea & lightheadedness. LMP 01/18. denies vaginal bleeding or d/c or nausea PE: abdomen soft w/+LLQ ttp no rebound or guarding Plan: EKG, labs, UA, US Medical Decision Making Medical Decision Making MDM Narrative: The patient is a 28-year-old female whose last menstrual period was January 18, a little over 1 month ago. The patient checked a test 5 days ago on Sunday and had a positive home test. She comes today with complaints of some mild lower abdominal cramping in the left lower abdomen. She has a beta HCG of 11. She has a nondiagnostic pelvic ultrasound. Clinically the patient does not appear unwell and her vital signs are unremarkable.. She has had no vaginal bleeding. I think her abdominal exam is fairly benign. I explained to the patient that it is unclear whether this is an early or whether this might be a blighted . The patient will be discharged to observe herself at home. Assuming she does reasonably well she should contact her OB provider on Sunday at [facility]. It is possible she might simply develop symptoms of a period. If she feels significantly worse she should return to the emergency room. Rh is positive. Lab Data 02/20/24 19:56 02/20/24 19:56 Labs: Lab Results 02/20/24 02/20/24 Range/Units 19:56 20:54 WBC 8.8 (4.8-10.8) X10*3/uL RBC 4.54 (4.20-5.50) X10*6/uL Hgb 13.4 (12.0-16.0) g/dl Hct 39.0 (37.0-47.0) % MCV 85.9 (80.0-98.0) fL MCH 29.5 (27.0-33.0) pg MCHC 34.4 (31.0-35.0) g/dl RDW 12.7 (11.0-16.0) % Plt Count 273 (160-400) X10*3/uL MPV 9.8 (9.4-12.3) fL Immature Gran % (Auto) 0.3 (0.0-0.4) % Neut % (Auto) 61.2 (45-73) % Lymph % (Auto) 29.2 (20-40) % [place] % (Auto) 7.9 (2-11) % Eos % (Auto) 0.9 (0-4) % Baso % (Auto) 0.5 (0-2) % Lymph # (Auto) 2.6 (1.2-4.9) X10*3/uL [place] # (Auto) 0.7 (0.1-1.2) X10*3/uL Eos # (Auto) 0.1 (0.0-0.4) X10*3/uL Baso # (Auto) 0.0 (0.0-0.2) X10*3/uL Abs Immat Gran (auto) 0.03 (0.00-0.03) X10*3/uL Absolute Neuts (auto) 5.4 (2.0-8.3) x10*3/uL Absolute Nucleated RBC 0.000 (0.0-0.012) X10*3/uL Nucleated RBC % (auto) 0.0 (0.0-0.2) /100WBC Sodium 141 (135-145) mmol/L Potassium 4.0 (3.3-5.1) mmol/L Chloride 107 (96-108) mmol/L Carbon Dioxide 23 (22-29) mmol/L Anion Gap 15 (12-20) BUN 12 (9-16) mg/dL Creatinine 1.05 (0.5-1.4) mg/dL Estim Creat Clear Calc 78.3 Estimated GFR > 60 Random Glucose 74 (60-115) mg/dL Calcium 9.6 (8.4-10.2) mg/dL Magnesium 2.0 (1.6-2.6) mg/dL Total Bilirubin 0.5 (0.0-1.0) mg/dL Direct Bilirubin 0.2 (0.0-0.5) mg/dL AST 27 (5-31) U/L ALT 29 (0-31) U/L Alkaline Phosphatase 68 (39-117) U/L Total Protein 7.7 (6.5-8.0) g/dL Albumin 4.3 (3.5-5.0) g/dL Lipase 41 (8-78) U/L Beta HCG, Quant 11 mIU/mL Urine Color Yellow Urine Appearance Clear Urine pH 6.5 (5.0-9.0) Ur Specific [place] 1.020 (1.005-1.025) Urine Protein Negative (Neg-Trace) mg/dL Urine Glucose (UA) Negative (Negative) mg/dL Urine Ketones Negative (Negative) mg/dL Urine Blood Negative (Negative) Urine Nitrite Negative (Negative) Ur Leukocyte Esterase Negative (Negative) Influenza Type A (PCR) NEGATIVE (Negative) Influenza Type B (PCR) NEGATIVE (Negative) RSV RNA Qual (PCR) NEGATIVE (Negative) SARS-CoV-2 RNA (RT-PCR) NEGATIVE (Negative) Blood Type A Positive Discharge Plan Discharge Clinical Impression: Left lower quadrant abdominal pain, Positive test Patient Disposition: Home, Self-Care Additional Instructions: Your blood test for a test is positive but it is very weakly positive. Your beta hCG result today is 11. This is a very low number for a test from the blood. Because this number is so low it is hard to say whether your is an established or not. It is possible you might go on to develop symptoms of a period over the next few days in which case this would be a case of a very early miscarriage. On the other hand it is not impossible that you might go on to have a normal . At this point I would recommend simply watching and waiting. You may use acetaminophen (Tylenol) as needed for any mild discomfort. If by Sunday you have not had any beginnings of a period I would recommend contacting your OB provider at [facility] to discuss what you should do next. If at any point you are significantly worse please return to the emergency room. Prescriptions: No Action acetaminophen [Tylenol Extra Strength] 500 mg tablet 500 mg PO Q6H PRN (Reason: fever or pain) Qty: 14 0RF lidocaine [Lidoderm] 5 % adhesive patch,medicated 1 patch topical DAILY MDD remove after 12 hours PRN (Reason: pain) Qty: 30 0RF Rx Instructions: leave on most painful area for up to 12 hrs naproxen 500 mg tablet 500 mg PO BID PRN (Reason: pain) 10 Days Qty: 20 0RF cyclobenzaprine 5 mg tablet 5 mg PO Q8H PRN (Reason: pain (scale score 7-10)) 5 Days Qty: 14 0RF acetaminophen [Tylenol Extra Strength] 500 mg tablet 500 mg PO Q6H PRN (Reason: fever or pain) Qty: 30 0RF Print Language: Turkmen
[2024-02-20 19:59] LABS: MANUAL DIFF FLAG NO
[2024-02-20 20:00] LABS: Basophils Percent Auto 0.5 % (0-2); Eosinophils Absolute Auto 0.1 X10*3/uL (0.0-0.4); Eosinophils Percent Auto 0.9 % (0-4); Hemoglobin 13.4 g/dl (12.0-16.0); Imm Gran Abs Auto 0.03 X10*3/uL (0.00-0.03); Imm Gran Pct Auto 0.3 % (0.0-0.4); Lymphocytes Absolute Auto 2.6 X10*3/uL (1.2-4.9); Lymphocytes Percent Auto 29.2 % (20-40); Mean Corpuscular HGB Conc 34.4 g/dl (31.0-35.0); Mean Corpuscular Hemoglobin 29.5 pg (27.0-33.0); Mean Corpuscular Volume 85.9 fL (80.0-98.0); Mean Platelet Volume 9.8 fL (9.4-12.3); Monocytes Absolute Auto 0.7 X10*3/uL (0.1-1.2); Monocytes Percent Auto 7.9 % (2-11); Neutrophils Absolute Auto 5.4 x10*3/uL (2.0-8.3); Neutrophils Percent Auto 61.2 % (45-73); Platelet Count 273 X10*3/uL (160-400); Red Blood Count 4.54 X10*6/uL (4.20-5.50); Red Cell Distribution Width 12.7 % (11.0-16.0); White Blood Count 8.8 X10*3/uL (4.8-10.8)
[2024-02-20 20:20] LABS: Alanine Aminotransferase 29 U/L (0-31); Albumin Level 4.3 g/dL (3.5-5.0); Alkaline Phosphatase 68 U/L (39-117); Anion Gap 15 (12-20); Aspartate Amino Transferase 27 U/L (5-31); Bilirubin Direct 0.2 mg/dL (0.0-0.5); Bilirubin Total 0.5 mg/dL (0.0-1.0); Blood Urea Nitrogen 12 mg/dL (9-16); Calcium 9.6 mg/dL (8.4-10.2); Carbon Dioxide 23 mmol/L (22-29); Chloride 107 mmol/L (96-108); Creatinine Clr Calc Pharmacy 78.3; Estimated Glomerular Filt Rate > 60; Glucose Random 74 mg/dL (60-115); HCG Quantitative 11 mIU/mL; Lipase 41 U/L (8-78); Sodium 141 mmol/L (135-145); Total Protein 7.7 g/dL (6.5-8.0)
[2024-02-20 20:39] LABS: Influenza A PCR NEGATIVE (Negative); Influenza B PCR NEGATIVE (Negative); Resp Syncy Virus RNA Qual PCR NEGATIVE (Negative); SARS COV2 PCR INHOUSE NEGATIVE (Negative)
[2024-02-20 21:03] LABS: Appearance Urine Clear; Color Urine Yellow; Glucose Urine UA Negative (Negative); Leukocyte Esterase Urine Negative (Negative); Nitrite Urine Negative (Negative); PH 6.5 (5.0-9.0); Urine Blood Negative (Negative); Urine Ketones Negative (Negative); Urine Protein Negative (Neg-Trace)
[2024-02-20 22:13] VITALS: BP 132/88; PULSE 94; RESP 16; TEMP 36.9; O2SAT 98
--- OUTSIDE RECORDS SUMMARY | 2024-02-20 22:25 | XMS_ITS | Continuity of Care Document ---
Author Organization [facility] Address [address] [place] [address]- Care Team Providers Care Investigations Director Name Role Phone Not on Staff, PCP Primary Care Physician Unavail able [facility] Date(s): 01/18/24 - 02/17/24 [facility] [address] [address] Encounter Type: Triage Allergies, Adverse Reactions, Alerts Substance Criticality Severity Reaction Reaction Severity Status Rocephin destin Anaphylaxis Active Immunizations Given and Recorded Vaccine Date Status Refusal Reason tetanus/diphtheria/pertussis, acel(Tdap) 08/18/21 Given Problem List Condition Confirmation Course Effective Dates Status [facility] atus Informant History of section Confirmed Active History of delivery Confirmed Active Social History Social History Type Response Smoking Status Never (less than 100 in lifetime) entered on: 07/26/21 Sex Sex Representation Female (finding) Patient Care team information Care Team Personnel Name: Not on Staff, PCP Position: [facility] Physician (General Medicine) Member Role: PCP Care Team Related Persons Name: EVARISTO WOLFE Name: NAKUL DALE Insurance Providers Guarantor name: JESSICA WOLFE Health Plan Information #: 1 Payer: [employer] Member Number: NA Policy Number: NA Group Number: NA
--- OUTSIDE RECORDS SUMMARY | 2024-02-20 22:25 | XMS_ITS | Continuity of Care Document ---
Author Organization [facility] Address [address] [place] [address] Care Team Providers Care Outplacement Consultant Name Role Phone Not on Staff, PCP Primary Care Physician Unavail able Encounter [facility] Date(s): 01/11/24 - 02/10/[address] [address]- Attending Physician: Salazar Marin Admitting Physician: Salazar Marin Referring Physician: Admtr ArAlma Encounter Type: Triage Allergies, Adverse Reactions, Alerts [...] WOLFE Health Plan Information #: 1 Payer: [employer] Member Number: NA Policy Number: NA Group Number: NA
--- OUTSIDE RECORDS SUMMARY | 2024-02-20 22:25 | XMS_ITS | Continuity of Care Document ---
Author Organization [facility] Address [address] [place] [address]- Care Team Providers Care Visitor Services Technician Name Role Phone Not on Staff, PCP Primary Care Physician Unavail able Encounter [facility] Date(s): 10/13/23 - [facility] [address] [address] Attending Physician: Not on Staff, Attending MD Encounter Type: Pre-OutPatient One Time Allergies, Adverse Reactions, Alerts Substance Criticality Severity [...] WOLFE Health Plan Information #: 1 Payer: [employer] Member Number: [id number] Policy Number: NA Group Number: NA Health Plan Information #: 2 Payer: [employer] Member Number: [id number] Policy Number: NA Group Number: NA
[2024-02-20 22:56] VITALS: BP 132/88; PULSE 94; RESP 16; TEMP 36.9; O2SAT 98
== END 2024-02-20 22:57 | disposition home or self-care (01) ==
PROVIDERS: Physician Assistant; Emergency Provider Emergency Medicine
DX: O26.891 Other specified pregnancy related conditions, first trimester (principal); R10.32 Left lower quadrant pain; Z3A.01 Less than 8 weeks gestation of pregnancy
CPT/HCPCS: 0241U; 36415; 76801; 80048; 80076; 81003; 83690; 83735; 84702; 85025; 86900; 86901; 93005; 99283; 99284

== ENCOUNTER → 2024-02-20 19:43 | Outpatient (BNV) | payer MEDICAID, SELFPAY | PROVIDERS: Emergency Provider Emergency Medicine; Visit Provider Internal Medicine | DX: R42 Dizziness and giddiness (principal) | CPT/HCPCS: 93010 ==

== ENCOUNTER 2024-04-08 13:45 | Outpatient (REF) | payer MEDICAID, SELFPAY ==
[2024-04-11 17:33] LABS: TS Negative Control Passed; TS Panel A 0; TS Panel B 0; TS Positive Control Passed; TSpotTB Negative (Negative)
== END 2024-04-08 13:46 | disposition home or self-care (01) ==
LOC: HO.HHCL 13:45
PROVIDERS: Visit Provider Nurse Practitioner
DX: Z11.1 Encounter for screening for respiratory tuberculosis (principal)
CPT/HCPCS: 36415; 86481

== ENCOUNTER 2024-05-16 08:56 | Emergency (ER) | payer MEDICAID, SELFPAY ==
[2024-05-16 09:40] VITALS: BP 116/78; PULSE 87; RESP 16; TEMP 36.6; O2SAT 100; BMI 34.2
[2024-05-16 11:33] LABS: UPreg QC Valid YES; Urine Pregnancy POSITIVE (NEGATIVE)
[2024-05-16 12:05] LABS: Influenza A PCR POSITIVE (Negative); Influenza B PCR NEGATIVE (Negative); Resp Syncy Virus RNA Qual PCR NEGATIVE (Negative); SARS COV2 PCR INHOUSE NEGATIVE (Negative)
--- NOTE | 2024-05-16 13:05 | ED.FALL ---
HPI - Fall General Chief Complaint: Fall Stated Complaint: Fall yesterday - back pain Time Seen by Provider: 05/16/24 12:26 Source: patient Mode of arrival: ambulatory Limitations: no limitations History of Present Illness ED Provider: NICOLE FREEMAN Narrative: 28 yo female 6 weeks has 4 kids at home recent miscarriage - she notes URI symptoms x 1 day. Did trip and fall yesterday after R knee chronically gives out. She denies headstrike or LOC - no injuries other than hitting R side of abdomen. She has some pain from back wrapping around but no new incontinence or saddle anesthesia. She has no vag bleeding. complaint: fall Onset (ago): day(s) (1) Fall from: standing Fall witnessed: no Place fall occurred: home Loss of consciousness: none Prolonged down time: no Symptoms prior to fall: none Context: tripped/slipped Location of injury: abdomen Severity: mild Associated symptoms (after fall): other (has URI) Related Data Previous Rx's ?Medication ?Instructions ?Recorded acetaminophen 500 mg tablet 500 mg PO Q6H PRN fever or pain 06/29/22 (Tylenol Extra Strength) #30 tabs acetaminophen 500 mg tablet 500 mg PO Q6H PRN fever or pain 08/20/23 (Tylenol Extra Strength) #14 tabs cyclobenzaprine 5 mg tablet 5 mg PO Q8H PRN pain (scale score 08/20/23 7-10) 5 days #14 tabs lidocaine 5 % topical patch 1 patch topical DAILY PRN pain #30 08/20/23 (Lidoderm) ea naproxen 500 mg tablet 500 mg PO BID PRN pain 10 days #20 08/20/23 tabs oseltamivir 75 mg capsule (Tamiflu) 75 mg PO BID 5 days #10 caps 05/16/24 Allergies Allergy/AdvReac Type Severity Reaction Status Date / Time ceftriaxone [From Rocephin] Allergy Angioedema Verified 05/16/24 09:40 Review of Systems Review of Systems: Constitutional : No Fever, pos Chills, pos Fatigue ENT/Mouth : pos sore throat, pos Rhinorrhea Eyes: No Eye Pain, No Swelling, No Redness Cardiovascular : No Chest Pain, No SOB, No Dyspnea on Exertion Respiratory : pos Cough, No Sputum Gastrointestinal : No Nausea, No Vomiting, No Diarrhea, No abdominal Pain Genitourinary : No Dysuria, No Urinary Frequency, No Hematuria, no vaginal bleeding Musculoskeletal : No joint pain, No Myalgias, No Joint Swelling Skin : No Skin Lesions, No rash Neuro : No Weakness, No Numbness, No Dizziness, positive Headache All other systems reviewed and are negative [facility] Past Medical History Attestation statement: The following information was validated with the patient. Source: old records reviewed Medical History History of delivery COVID-19 vaccination declined Healthy adult Surgical History History of section Social History Social History Alcohol intake: current Alcohol intake frequency: does not drink Patient Tobacco Use Status: Never used Tobacco Advance Directives: No Advance Directives Information Provided: Yes Do you have a plan to hurt others: No Plan Current occupational status: unemployed Physical Exam Vital Signs: Vital Signs: Last Vital Signs Temp 98 F 05/16/24 09:40 Pulse 87 05/16/24 09:40 Resp 16 05/16/24 09:40 BP 116/78 05/16/24 09:40 Pulse Ox 100 05/16/24 09:40 O2 Del Method Room Air 05/16/24 09:40 BMI result Body Mass Index 34.2 Appearance: Alert. Oriented X3. No acute distress. Eyes: Pupils equal, round and reactive to light. ENT: Pharynx normal. nasal congestion, MMM Neck: Normal inspection. Neck supple. CVS: Normal heart rate and rhythm. Pulses normal. Respiratory: No respiratory distress. Breath sounds normal. Abdomen: Soft and nontender. see US note Skin: Skin warm and dry. Normal skin color. Normal skin turgor. Extremities: No lower extremity edema. No calf ttp Neuro: Oriented X 3. No motor deficit. No sensory deficit. CN2-12 intact Procedures Procedure Narrative Procedure Narrative: bedside transabdominal pelvis no FF inside US can see two gestational sac I see one small pole Medical Decision Making Medical Decision Making MDM Narrative: 28 yo female with no sig PMH sick with URI and low back pain since last night - feels she has a cold. She also fell yesterday no headstrike landed on R abdomen has not had cramping or spotting but has been having low back pain wrapping yesterday. She has no midline ttp and no cauda equina symptoms will obtain bedside US and viral panel. 6 weeks is not viable just watchful waiting she is flu positive will start on tamiflu Differential Diagnosis Differential Diagnoses: The differential diagnosis associated with the presentation includes viral syndrome, flu, possible threatened fetus injury Lab Data MDM Lab Attestation statement: I reviewed the patient's lab results. Labs: Lab Results 05/16/24 05/16/24 Range/Units 11:03 11:22 Urine Test POSITIVE H (NEGATIVE) Influenza Type A (PCR) POSITIVE A (Negative) Influenza Type B (PCR) NEGATIVE (Negative) RSV RNA Qual (PCR) NEGATIVE (Negative) SARS-CoV-2 RNA (RT-PCR) NEGATIVE (Negative) Independent Interpretation I performed an independent interpretation of an: Ultrasound Radiology Impression Discussion of test interpretation with radiology: I have reviewed the radiologist's reading. External Record Review External record reviewed: Outpatient record Prescription Management I considered prescription management with: Antiviral Discharge Plan Discharge Clinical Impression: Influenza A Fall Qualifiers: Encounter type: initial encounter Qualified Code(s): W19.XXXA - Unspecified fall, initial encounter Patient Disposition: Home, Self-Care Instructions: Influenza (ED) Additional Instructions: return for chest pain, trouble breathing, unable to eat or drink, or any other concerns rest stay hydrated and take tylenol for aches and pains return for severe cramping and pelvic pain follow up with OBGYN Prescriptions: New oseltamivir [Tamiflu] 75 mg capsule 75 mg PO BID 5 Days Qty: 10 0RF No Action acetaminophen [Tylenol Extra Strength] 500 mg tablet 500 mg PO Q6H PRN (Reason: fever or pain) Qty: 14 0RF lidocaine [Lidoderm] 5 % adhesive patch,medicated 1 patch topical DAILY MDD remove after 12 hours PRN (Reason: pain) Qty: 30 0RF Rx Instructions: leave on most painful area for up to 12 hrs naproxen 500 mg tablet 500 mg PO BID PRN (Reason: pain) 10 Days Qty: 20 0RF cyclobenzaprine 5 mg tablet 5 mg PO Q8H PRN (Reason: pain (scale score 7-10)) 5 Days Qty: 14 0RF acetaminophen [Tylenol Extra Strength] 500 mg tablet 500 mg PO Q6H PRN (Reason: fever or pain) Qty: 30 0RF Stand Alone Forms: Work/School Release Discharge Date/Time: 05/16/24 13:13 Print Language: Telugu
--- NOTE | 2024-05-16 13:13 | PC.NURSE ---
pt was seen and discharged by provider
--- OUTSIDE RECORDS SUMMARY | 2024-05-16 13:36 | XMS_ITS | Encounter Summary ---
Author Organization [employer] Address [address] [place] [address] Care Team Providers Care [employer] Name Role Phone Brittaney Rao NP Primary Care Provider [phone] Reason for Visit * Reason Onset Date Comments Chart Prep 05/15/2024 Encounter Details Date Type Department Care Team ([facility] st Contact Info) Description 05/15/2024 Telephone [facility] [address] [place] [address] Brittaney Rao NP [address] [place] [address] Chart Prep Social History Tobacco Use Types Packs/Day Years Used Date Smoking Tobacco: Never Passive Smoke Exposure: Never Smokeless Tobacco: Never Alcohol Use Standard Drinks/Week Comments Yes 0 (1 standard drink = 0.6 oz pure alcohol) socially about once a month 3 drinks Depression Answer Date Recorded Patient Health Questionnaire-9 Score 0 05/02/2024 Patient Health Questionnaire-9 Score 0 05/02/2024 Last PHQ-9: Questionnaire Data Not on file 0 05/02/2024 Housing Stability Answer Date Recorded What is your housing situation today? I have rasheeda blount 04/25/[address] you li ve. Do you have problems with any of the following? None of the above 04/25/2024 Food Insecurity Answer Date Recorded Within the past 12 months, y ou worried that your food would run out before you got money to buy more: Never True 04/25/2024 Within the past 12 months,th e food you bought just didn't last and you didn't have enough money to get more: Never True Transportation Answer Date Recorded In the past 12 months, has l ack of transportation kept you from medical appts, meetings, work or from getting things needed for daily living? No 04/25/2024 Utilities Answer Date Recorded In the past 12 months, has t he electric, gas, oil or water company threatened to shut off services in your home? No 04/25/2024 Depression Answer Date Recorded Patient Health Questionnaire-2 Score 0 05/02/2024 Internet Access Answer Date Recorded Internet Access Q1 Yes 04/25/2024 Internet Access Q2 Not on file 04/25/2024 Comments Unknown Sex and Gender Information Value Date Recorded Sex Assigned at Female 11/15/2022 1:15 PM EDT Legal Sex Female 1:13 PM EDT Gender Identity Female 11/15/2022 1:15 PM EDT Sexual Orientation Don't know 11/15/2022 1: 15 PM EDT documented as of this encounter Miscellaneous Notes * Telephone Encounter - Terry Graham [place] - 05/15/2024 1:13 PM EST Chart Prep Labs: done Images: done Vaccines due: yes Covid Referrals: pending appt Screenings: pap smear Overdue care gaps: None documented in this encounter Plan of Treatment Upcoming Encounters Date Type Department Care Team (Late st Contact Info) Description 06/04/2024 9:15 AM EDT Procedure Visit [facility] [address] [place] [address] Jeffery Navarrete CNP [address] [place] [address] documented as of this encounter Visit Diagnoses Not on filedocumented in this encounter Additional Health Concerns Assessment Noted Time PHQ-9 Depression Total Score: 0 05/02/19 9:40 AM EST documented as of this encounter Care Teams [employer] Relationship Specialty Start Date End Date Brittaney Roa NP [address] [place] [address] PCP - General Family Medicine 02/28/23 documented as of this encounter
--- OUTSIDE RECORDS SUMMARY | 2024-05-16 13:36 | XMS_ITS | Clinical Summary ---
Author Organization [employer] Address [address] [place] [address] Care Team Providers Care Ophthalmic Technologist Name Role Phone Brittaney Rao NP Primary Care Provider [phone] Allergies Active Allergy Reactions Criticality Noted Date Comments Ceftriaxone Anaphylaxis High 02/23/2023 Medications * This document contains information received from the source organization and may not represent a complete record from that organization. guaiFENesin (Mucinex) 600 MG 12 hr tabletIndication s:Viral upper respiratory tract infection Take 2 tablets (1,200 mg) by mouth 2 times daily. Do not crush, chew, or split. 120 tablet 11 5 05/02/19 26 Active ondansetron (Zofran) 4 MG tabletIndication s:Nausea Take 2 tablets (8 mg) by mouth every 8 (eight) hours if needed for nausea or vomiting for up to 7 days. 20 tablet 5 05/09/19 25 Active Problems Problem Noted Date Diagnosed Date Nausea 05/02/2024 Assessment & Plan (05/02/2024 10:17 AM EST): Pt has intermittent nausea when she eats certain foods Will send zofran rx to take prn for nausea Viral upper respiratory tract infection 05/02/19 25 Assessment & Plan (05/02/2024 10:42 AM EST): All in office rapid testing negative Will send mucinex for congestion Advised pt to drink ample fluids and to practice appropriate hand hygiene Will RTC if symptoms worsen or do not resolve in 1 week. Breast pain 05/02/2024 Assessment & Plan (05/02/2024 10:41 AM EST): Physical exam nl, no acute abnormalities Suspicion for possible plugged milk duct or cyclical mastalgia d/t upcoming period. Pt plans to f/u with obgyn next week and she plans to let them know about her breast concerns for further workup Recommended imaging with breast u/s for further investigation Encounter for immunization 05/02/2024 Class 2 obesity without seri ous comorbidity with body mass index (BMI) of 35.0 to 35.9 in adult 03/04/2023 Assessment & Plan (03/04/2023 11:12 PM EST): -Healthy diet and exercise teaching completed: Eat a variety of fruit and vegetables, whole grains such as whole-wheat flour, bulgur (cracked wheat), oatmeal, and brown rice. Intake protein from beans, nuts, fish, and lean meats. Eat low-fat or fat- free dairy products. Limit highly processed foods such as hot dogs, sandwich meat, etc. Engage in minimum of 150 min of moderate intensity exercise weekly -advised to eliminate soda and sugary beverages from diet. -fasting lipids ordered -will inform of lab results Routine screening for STI (sexually transmitted infection) 03/04/2023 Assessment & Plan (05/02/2024 10:14 AM EST): Pt due for hep c and hiv screening, will place orders today Assessment & Plan (03/04/2023 7:40 AM EST): -agreeable to screening -will treat if necessary Menorrhagia with regular cycle 03/04/2023 Assessment & Plan (03/04/2023 7:54 AM EST): -IUD removed secondary to weight gain -will screen for anemia and treat if necessary Routine adult health maintenance 03/04/2023 Assessment & Plan (05/02/2024 10:16 AM EST): Pt due for routine blood work-see orders Pt due for routine eye exam, referral provided to [facility] Pt due for hep b flu and covid vaccinations, will proceed with flu and hep today Pt due for Tb reading, orders placed. Pt due for pap smear, has obgyn appt next week and will plan to do it there. Pt will make f/u prn if pap still needed or for any other conditions. Assessment & Plan (03/04/2023 7:44 AM EST): -needs flu, COVID, Hep vaccine for school -directed to vaccine clinic for vaccines Screening-pulmonary TB 03/04/2023 Assessment & Plan (03/04/2023 7:45 AM EST): -needs proof of negative TB status of school -T-spot ordered History of section 02/28/202308/2022 History of delivery 02/28/202308/2022 Encounters * This document contains information received from the source organization and may not represent a complete record from that organization. Date Type Department Care Team Description 05/15/[address] [phone] Brittaney Rao NP Chart Prep 05/02/2024 9:45 AM EST Office Visit [address] [address] Jeffery Navarrete CNP Routine screening for STI (sexually transmitted infection) (Primary Dx); Routine adult health maintenance; Nausea; Encounter for immunization; Viral upper respiratory tract infection; Breast pain 05/02/2024 Travel 04/29/[address] [address] Brittaney Rao NP Chart Prep 04/25/2024 Patient Outreach [facility] [address] [place] [address] Brittaney Rao NP Pre-visit Planning (SDOH negative, Tobacco screening negative.) 04/07/2024 Telephone [facility] [address] [place] [phone] Brittaney Rao NP TB TEST (PATIENT NEEDS TB TEST FOR WORK ) 03/12/2024 Patient Outreach [facility] [address] [place] [address] Brittaney Rao NP Care Coordination (Outreach) 03/05/2024 Patient Outreach [facility] [address] [place] [address] Brittaney Rao NP Care Coordination (outreach) 02/28/2024 Patient Outreach [facility] [address] [place] [address] Brittaney Rao NP Care Coordination (Outreach) 02/20/2024 Orders Only [facility] External Provider, [facility] from Last 3 Months Immunizations Name Administration Dates Next Due Hep B, adult 05/02/2024,03/01/2023 Influenza injectable quadrivalent preservative f ree 03/01/2023 Influenza, seasonal, injectable, preservative fr ee 05/02/2024 Pfizer Covid-19 Vaccine 12+ 03/01/2023 Tdap 08/18/2021 Family History Medical History Relation Name Comments Diabetes Maternal Grandmother Diabetes Other aunt Hypertension Other aunt Relation Name Status Comments Maternal Grandmother Other aunt Social History Tobacco Use Types Packs/Day Years Used Date Smoking Tobacco: Never Passive Smoke Exposure: Never Smokeless Tobacco: Never Tobacco Cessation:Counseling Given: Not Answered Alcohol Use Standard Drinks/Week Comments Yes 0 [...] Don't know 11/15/2022 1: 15 PM EDT Last Filed Vital Signs Vital Sign Reading Time Taken Comments Blood Pressure 138/94 05/02/2024 9:37 AM EST Pulse 88 05/02/2024 9:37 AM EST Temperature 36.5 ??C (97.7 ??F) 02/28/2023 2:19 PM ES T Respiratory Rate 20 05/02/2024 9:37 AM EST Oxygen Saturation 98% 05/02/2024 9:37 AM EST Inhaled Oxygen Concentration - - Weight 85.1 kg (187 lb 9.6 oz) 05/02/2024 9:37 A M EST Height 154.9 cm (5' 1 ) 05/02/2024 9:37 AM EST Body Mass Index 35.45 05/02/2024 9:37 AM EST Plan of Treatment Upcoming Encounters Date Type Department Care Team (Late st Contact Info) Description 06/04/2024 9:15 AM EDT Procedure Visit [facility] [address] [place] [address] Jeffery Navarrete, ABIG[employer] [address] [place] [address] Health Maintenance Due Date Last Done Comments HIV Screening 1995 Lipid Panel 1995 Alcohol/Substance Use Screening 2007 Hepatitis C Screening 10/16/2013 COVID-19 Vaccine (2 - 2023-2 5 season) 2023 03/01/2023 Hepatitis B Vaccines (3 of 3 - 19+ 3-dose series) 06/27/2024 05/02/2024, 03/01/2023 HPV/Cotest 08/18/2024 Pap Smear 08/18/2024 08/18/2021 SDOH Screening 04/25/2025 04/25/2024 Depression Screening 05/02/2025 05/02/2024, 05/02/2024 Family Planning (PISQ) 05/02/2025 05/02/2024 Tobacco Screening 05/02/2025 05/02/2024 DTaP/Tdap/Td Vaccines (2 - T d or Tdap) 08/19/2031 08/18/2021 Zoster Vaccines (1 of 2) 10/16/2045 RSV Patients and Patients Aged 60 years or older (1 - 1-dose 75+ series) 10/16/2070 Influenza Vaccine Completed 05/02/2024, 03/01/2023 HIB Vaccines Aged Out No longer eligi ble based on patient's age to complete this topic HPV Vaccines Aged Out No longer eligi ble based on patient's age to complete this topic Hepatitis A Vaccines Aged Out No long er eligible based on patient's age to complete this topic IPV Vaccines Aged Out No longer eligi ble based on patient's age to complete this topic Meningococcal Vaccine Aged Out No corie josefina eligible based on patient's age to complete this topic Pneumococcal Vaccine: Pediatrics (0 to 5 Years) and At-Risk Patients (6 to 49) Years) Aged Out No longer eligible b ased on patient's age to complete this topic RSV under 20 months Aged Out No longe r eligible based on patient's age to complete this topic Rotavirus Vaccines Aged Out No longer eligible based on patient's age to complete this topic Procedures Procedure Name Priority Date/Time Associated Diagnosis Comments POCT RAPID STREP A Routine 05/02/2024 10 :33 AM EST Viral upper respiratory tract infection POCT INFLUENZA A Routine 05/02/2024 10:3 3 AM EST Viral upper respiratory tract infection POCT INFLUENZA B Routine 05/02/2024 10:3 3 AM EST Viral upper respiratory tract infection POCT COVID-19 AG DIAZ ID NOW Routine 05/02/2024 10:33 AM EST Viral upper respiratory tract infection T-SPOT(R).TB Routine 04/08/2024 1:50 PM EST Screening-pulmonary TB URINALYSIS WITH REFLEX MICROSCOPIC Routine 02/20/2024 8:54 PM EST US OB <14 WEEKS FETUS Routine 02/20/2024 8:26 PM EST ABO GROUP AND RH TYPE Routine 02/20/2024 7:56 PM EST HCG, TOTAL, QN Routine 02/20/2024 7:56 PM EST LIPASE Routine 02/20/2024 7:56 PM EST MAGNESIUM Routine 02/20/2024 7:56 PM EST BASIC METABOLIC PANEL Routine 02/20/2024 7:56 PM EST HEPATIC FUNCTION PANEL Routine 02/20/2024 7:56 PM EST CBC WITH AUTO DIFFERENTIAL Routine 02/20/2024 7:56 PM EST SARS COV2/INFLUENZA A/B AND RSV RNA QL NAAT Routine 02/20/2024 7:56 PM EST HM PAP/HPV Routine 08/18/2021 from Last 3 Months or Most Recently Relevant to Health Maintenance Results * POCT Rapid Covid-19 DIAZ ID NOW (05/02/2024 10:33 AM EST) Coronavirus Antigen PCR Negative Negative, Indeterminate, None Detected, Invalid, Specimen unsatisfactory for evaluation, Weakly Positive QC Media Lot # [id number] Lot# Expiration Date [id number] Swab 05/02/2024 10:3 3 AM EST [facility] POINT OF CARE TEST ENTER/ EDIT ORDERABLES Final Result * POCT Rapid Influenza B OSOM (05/02/2024 10:33 AM EST) [facility] Rapid Influenza B Ag Negative Negative, Indeterminate QC Media Lot # [id number] Lot# Expiration Date Swab 05/02/2024 10:3 3 AM EST Result [facility] POINT OF CARE TEST ENTER/ EDIT ORDERABLES Final Result * POCT Rapid Influenza A OSOM (05/02/2024 10:33 AM EST) [facility] Rapid Influenza A Ag Negative Negative, Indeterminate QC Media Lot # [id number] Lot# Expiration Date Swab Nasopharyngeal structure / Unknown 05/02/2024 10:33 AM EST Result [facility] POINT OF CARE TEST ENTER/ EDIT ORDERABLES Final Result * POCT Rapid Strep A OSOM (05/02/2024 10:33 AM EST) [facility] Rapid Strep A Screen Negative Negative, None Detected QC Media Lot # [id number] Lot# Expiration Date Swab 05/02/2024 10:3 3 AM EST Result [facility] POINT OF CARE TEST ENTER/ EDIT ORDERABLES Final Result * T-SPOT??.TB (04/08/2024 1:50 PM EST) [facility] T Spot TB Negative Negative [facility] Comment:A negative test resu lt does not exclude the possibilityof exposure to or infection with Mycobacteriumtuberculosis (M. tuberculosis). Patients with recentexposure to TB infected individuals exhibiting anegative T-SPOT.TB result should be considered forretesting within 6 weeks or if other relevant clinicalsymptoms indicate. Results from T-SPOT.TB testing mustbe used in conjunction with each individual'sepidemiological history, current medical status,and results of other diagnostic evaluations.The T-SPOT.TB test is qualitative and results arereported as positive, borderline, or negative, giventhat the test controls perform as expected. In linewith the Centers for Disease Control and Prevention's2010 recommendation to report quantitative measurementsalongside the qualitative result, the laboratoryprovides spot counts for informational purposes only.The T-SPOT.TB test should not be interpreted as aquantitative test. TS PANEL A 0 [facility] TS PANEL B 0 [facility] Negative Control Passed [facility] Positive Control Passed [facility] Comment:For additional infor mation, please refer tohttp://education.Livemocha/faq/IGZ784(This link is being provided for informational/educational purposes only.)THIS TEST WAS PERFORMED AT:[employer] [id number] [place] [id number] WHITESIDE MD,PHD 04/08/2024 1:50 PM EST 04/08/2024 3:56 PM EST us Brittaney Pedroza SWING MANAGER LAB BLOOD ORDERABLES Final Resu lt [facility] [address] [place] [phone] * Urinalysis w/reflex microscopic (02/20/2024 8:54 PM EST) Color Urine Yellow [facility] Appearance Urine Clear [facility] PH 6.5 5.0 - 9.0 [facility] Glucose Urine UA Negative Negative mg/dL [facility] Urine Blood Negative Negative [facility] Specific [place] - Urine 1.020 1.005 - 1.025 [facility] Urine Protein Negative Neg-Trace mg/dL [facility] Urine Ketones Negative Negative mg/dL [facility] Nitrite Urine Negative Negative [facility] Leukocyte Esterase Urine Negative Negative [facility] 02/20/2024 8:54 PM EST 02/20/2024 8:59 PM EST Narrative [facility] - 02/20/2024 9:22 PM EST [id number], [employer] us Generic External Data Provider LAB URINE ORDERAB LES Final Result Performing Organization Address [facility]/State/ZIP Co de Phone Number [facility] [address] [place] [address] [phone] * US OB <14 WEEKS FETUS (02/20/2024 8:26 PM EST) Anatomical Region Laterality Modality Ultrasound 02/20/2024 8:26 PM EST Narrative 02/20/2024 10:17 PM EST ? [facility] ?[address] ?[place] [address] ? Ultrasound Report ? Signed ? Patient: Santo Farr,Orin ?MR#: ?? [id number] ? : 1995 ?Acct:[id number] ? Age/Sex: 28 / F ?ADM Date: 02/20/24 ? Loc: HO.ED ? Attending Dr: ? Ordering Physician: Loyda Aguayo ?? Date of Service: 02/20/24 ?? Procedure(s): US OB <= 14 weeks fetus ?? Accession Number(s): [id number] ? cc: [facility]; Loyda Aguayo ? EXAMINATION: ? US OBSTETRICAL ULTRASOUND ? CLINICAL INFORMATION: ? Left lower quadrant pain with positive test ? COMPARISON: ? CT abdomen and pelvis 06/22/2022, OB ultrasound 12/30/2019 ? LMP: 01/19/2024. ?? Gestational age by maternal dates is 4 weeks 4 days. ?? Estimated date of delivery by maternal dates is 10/25/2024. ? TECHNIQUE: ?? Both transabdominal and endovaginal scanning was performed. ? FINDINGS: ?? The uterus measures 8.5 x 4.9 x 6.5 cm. The endometrium appears ?? thickened at 1.6 cm. Small amount of fluid is present in the ?? endometrial canal. No gestational sac or yolk sac is seen. A pole ?? or heart beat is not detected. ? The right ovary measures 4.4 x 1.8 x 2.8 cm and appears normal with a ?? 1.5 cm cyst. ? Left ovary measures 2.1 x 1.3 x 1.4 cm and appears unremarkable. ? No free fluid is present in the cul-de-sac ? US/US OB <= 14 weeks fetus ?? IMPRESSION: ?? No intrauterine is identified at this time. Correlation with ?? beta hCG levels is recommended, as nonvisualization of a gestational ?? sac could be due to an early stage of . Alternatively, lack of ?? an intrauterine gestational sac may also be seen with missed ?? or ectopic , although no adnexal mass is seen to strongly ?? suggest ectopic . Short-term sonographic follow-up and serial ?? beta hCG levels are recommended to assess for development of an ?? intrauterine gestational sac. ? Electronically signed by: ??Anderson Montenegro MD ??02/20/2024 10:14 PM EST ? Dictated By: ?Anderson Montenegro MD ? Signed By: ?<Electronically signed by Anderson Montenegro MD in OV> ? 02/20/242213 ? DD/ 25 ? TD/TT: 02/20/242034 ? Animal Science Professor: SS ? Procedure Note Adina, Lucy - 02/24/2024 [place] [address] Ultrasound Report Signed Patient: Laya Draper#: [id number] : 1995Acct:[id number] Age/Sex: 28 / FADM Date: 02/20/24 Loc: HO.ED Attending Dr: Ordering Physician: Loyda Aguayo Date of Service: 02/20/24 Procedure(s): US OB <= 14 weeks fetus Accession Number(s): [id number] cc: [facility]; Loyda Aguayo EXAMINATION: US OBSTETRICAL ULTRASOUND CLINICAL INFORMATION: Left lower quadrant pain with positive test COMPARISON: CT abdomen and pelvis 06/22/2022, OB ultrasound 12/30/2019 LMP: 01/19/2024. Gestational age by maternal dates is 4 weeks 4 days. Estimated date of delivery by maternal dates is 10/25/2024. TECHNIQUE: Both transabdominal and endovaginal scanning was performed. FINDINGS: The uterus measures 8.5 x 4.9 x 6.5 cm. The endometrium appears thickened at 1.6 cm. Small amount of fluid is present in the endometrial canal. No gestational sac or yolk sac is seen. A pole or heart beat is not detected. The right ovary measures 4.4 x 1.8 x 2.8 cm and appears normal with a 1.5 cm cyst. Left ovary measures 2.1 x 1.3 x 1.4 cm and appears unremarkable. No free fluid is present in the cul-de-sac US/US OB <= 14 weeks fetus IMPRESSION: No intrauterine is identified at this time. Correlation with beta hCG levels is recommended, as nonvisualization of a gestational sac could be due to an early stage of . Alternatively, lack of an intrauterine gestational sac may also be seen with missed or ectopic , although no adnexal mass is seen to strongly suggest ectopic . Short-term sonographic follow-up and serial beta hCG levels are recommended to assess for development of an intrauterine gestational sac. Electronically signed by: Anderson Montenegro MD 02/20/2024 10:14 PM EST Dictated By: Anderson Montenegro MD Signed By: <Electronically signed by Anderson Montenegro MD in OV> 02/20/242213 DD/ 25 TD/TT: 02/20/242034 Animal Science Professor: SS us [facility] External Provider IMG OB US PROCEDURES Edited Result - Final * SARS-CoV-2 RNA, Influenza A/B, and RSV RNA, Ql NAAT (02/20/2024 7:56 PM EST) Influenza A PCR NEGATIVE Negative [facility] Influenza B PCR NEGATIVE Negative [facility] Resp Syncy Virus RNA Qual PCR NEGATIVE Negative [facility] SARS COV2 PCR NEGATIVE Negative [facility] Comment:All test results mus t be correlated with clinical findings.Negative results do not preclude SARS-CoV2, influenza Avirus, influenza B virus and/or RSV infectionand should not be used as the sole basis for treatment orother patient management decisions. Negative results must becombined with clinical observations, patient history, andepidemiological information.This test has not been evaluated for monitoring treatment ofinfection.This test has been authorized by the FDA under an EmergencyUse Authorization (EUA) for use by authorized laboratories.Testing performed on the [employer] GeneXpert utilizingreal-time RT-PCR.All SARS CoV2 and positive influenza A/B results arereported to [facility]. 02/20/2024 7:56 PM EST 02/20/2024 7:56 PM EST us Generic External Data Provider LAB MICROBIOLOGY - GENERAL ORDERABLES Final Result [facility] [address] [place] [address] [phone] * CBC auto differential (02/20/2024 7:56 PM EST) White Blood Count 8.8 4.8 - 10.8 X10*3/uL [facility] Red Blood Count 4.54 4.20 - 5.50 X10*6/uL [facility] Hemoglobin 13.4 12.0 - 16.0 g/dl [facility] Hematocrit 39.0 37.0 - 47.0 % [facility] Mean Corpuscular Volume 85.9 80.0 - 98.0 fL [facility] Mean Corpuscular Hemoglobin 29.5 27.0 - 33.0 pg [facility] Mean Corpuscular HGB Conc 34.4 31.0 - 35.0 g/dl [facility] Red Cell Distribution Width 12.7 11.0 - 16.0 % [facility] Platelet Count 273 160 - 400 X10*3/uL [facility] Mean Platelet Volume 9.8 9.4 - 12.3 fL [facility] Neutrophils Percent Auto 61.2 45 - 73 % [facility] Imm Gran Pct Auto 0.3 0.0 - 0.4 % [facility] Lymphocytes Percent Auto 29.2 20 - 40 % [facility] Monocytes Percent Auto 7.9 2 - 11 % [facility] Eosinophils Percent Auto 0.9 0 - 4 % [facility] Basophils Percent Auto 0.5 0 - 2 % [facility] NRBC Pct Auto 0.0 0.0 - 0.2 /100WBC [facility] Neutrophils Absolute Auto 5.4 2.0 - 8.3 x10*3/uL [facility] Imm Gran Abs Auto 0.03 0.00 - 0.03 X10*3/uL [facility] Lymphocytes Absolute Auto 2.6 1.2 - 4.9 X10*3/uL [facility] Monocytes Absolute Auto 0.7 0.1 - 1.2 X10*3/uL [facility] Eosinophils Absolute Auto 0.1 0.0 - 0.4 X10*3/uL [facility] Basophils Absolute Auto 0.0 0.0 - 0.2 X10*3/uL [facility] NRBC Abs Auto 0.000 0.0 - 0.012 X10*3/uL [facility] 02/20/2024 7:56 PM EST 02/20/2024 7:56 PM EST us Generic External Data Provider LAB BLOOD ORDERAB LES Final Result Performing Organization Address City/[facility]/ZIP Co de Phone Number [facility] [address] [place] [phone] * ABO Group And RH Type (02/20/2024 7:56 PM EST) Blood Type AP [facility] Comment:RH IMMUNE GLOBULIN I NDICATED: NO 02/20/2024 7:56 PM EST 02/20/2024 10:04 PM EST Generic External Data Provider LAB BLOOD BANK TE ST ORDERABLES Edited Result - Final Performing Organization Address City/[facility]/ZIP Co de Phone Number [facility] [address] [place] [phone] [phone] * hCG, Total, Quantitative (02/20/2024 7:56 PM EST) Pathologist [facility] HCG Quantitative 11 mIU/mL [facility] Comment:Weeks post LMP Appro ximate hCG(Last Menstrual Period) Range (mIU/ml)3 - 4 weeks 9 - 1304 - 5 weeks 75 - 2,6005 - 6 weeks 850 - 20,8006 - 7 weeks 4000 - 100,2007 - 12 weeks 11,500 - 289,29093 - 16 weeks 18,300 - 137,51867 - 29 weeks (2nd trimester) 1,400 - 53,16452 - 41 weeks (3rd trimester) 940 - 60,000The Diaz B- hCG assay is used for the early detection ofpregnancy; it cannot be used to diagnose any conditionunrelated to . If a B-hCG level is not supportedby the clinical evidence, results should be confirmed by analternative method (qualitative urine hCG, for example). 02/20/2024 7:56 PM EST 02/20/2024 7:56 PM EST us Generic External Data Provider LAB BLOOD ORDERAB LES Final Result Performing Organization Address City/[facility]/ZIP Co de Phone Number [facility] [address] [place] [phone] * Magnesium (02/20/2024 7:56 PM EST) [facility] Magnesium 2.0 1.6 - 2.6 mg/dL [facility] 02/20/2024 7:56 PM EST 02/20/2024 7:56 PM EST Generic External Data Provider LAB BLOOD ORDERAB LES Final Result Performing Organization Address [facility]/ZIP Co de Phone Number [facility] [address] [place] [phone] * Lipase (02/20/2024 7:56 PM EST) Lipase 41 8 - 78 U/L [facility] 02/20/2024 7:56 PM EST 02/20/2024 7:56 PM EST Generic External Data Provider LAB BLOOD ORDERAB LES Final Result Performing Organization Address [facility] Co de Phone Number [facility] [address] [place] [phone] * Hepatic Function Panel (02/20/2024 7:56 PM EST) Bilirubin, Total 0.5 0.0 - 1.0 mg/dL [facility] Bilirubin, Direct 0.2 0.0 - 0.5 mg/dL [facility] Aspartate Amino Transferase 27 5 - 31 U/L [facility] Alanine Aminotransferase 29 0 - 31 U/L [facility] Total Protein 7.7 6.5 - 8.0 g/dL [facility] Albumin Level 4.3 3.5 - 5.0 g/dL [facility] Alkaline Phosphatase 68 39 - 117 U/L [facility] 02/20/2024 7:56 PM EST 02/20/2024 7:56 PM EST [employer] External Data Provider LAB BLOOD ORDERAB LES Final Result Performing Organization Address [facility] Co de Phone Number [facility] [address] [place] [phone] * Basic Metabolic Panel (02/20/2024 7:56 PM EST) Sodium 141 135 - 145 mmol/L [facility] Potassium 4.0 3.3 - 5.1 mmol/L [facility] Chloride 107 96 - 108 mmol/L [facility] Carbon Dioxide 23 22 - 29 mmol/L [facility] Anion Gap 15 12 - 20 [facility] Urea Nitrogen (BUN) 12 9 - 16 mg/dL [facility] Creatinine, Serum 1.05 0.5 - 1.4 mg/dL [facility] Creatinine Clr Calc Pharmacy 78.3 [facility] Comment:Provided height and weight: 154.94 cm,83.8 kg.eGFR (calculated from the MDRD study equation) and eCrCl(calculated from the Cockcroft-Gault equation) are based ondifferent parameters and may not yield comparable results.If eCrCl result is absurd, please check patient'sheight/weight. Estimated Glomerular Filt Rate >60 [facility] Comment:Chronic Kidney Disea se: Estimated GFR < 60 mL/min/1.00g5Mngrze Kidney Disease: Estimated GFR < 15 mL/min/1.73m2 Glucose 74 60 - 115 mg/dL [facility] Calcium 9.6 8.4 - 10.2 mg/dL [facility] 02/20/2024 7:56 PM EST 02/20/2024 7:56 PM EST Generic External Data Provider LAB BLOOD ORDERAB LES Final Result [facility] [address] [place] [address] [phone] * PAP/HPV (08/18/2021) Pap Negative for intraephithelial lesion or malignancy Negative for intraephithelial lesion or malignancy, Epithelial cell abnormality Historical Provider HEALTH MAINTENANCE Final Result from Last 3 Months or Most Recently Relevant to Health Maintenance Insurance N-Sided C3 Care Teams Ophthalmic Technologist Relationship Specialty Start Date End Date Brittaney Rao NP [address] [place] [id number] PCP - General Family Medicine 02/28/23
--- OUTSIDE RECORDS SUMMARY | 2024-05-16 13:36 | XMS_ITS | Encounter Summary ---
Author Organization [employer] Address [address] [facility] 7t [place] [address] Care Team Providers Care Risk Compliance Analyst Name Role Phone Brittaney Rao NP Primary Care Provider [phone] Reason for Referral * Consultation (Routine) - Authorized Specialty Diagnoses / Procedures Referred By Lorna funes Referred To Contact Optometry Diagnoses Routine adult health maintenance Jeffery Navarrete CNP [address] [place] [address] Phone: tel: fax: [facility] [address] [place] [phone] Phone: tel: fax: Referral ID Status Reason Start Date Expiration Date Visits Requested Visits Authorized [id number] Authorized Consult and Treat 05/02/2024 05/02/2025 1 1 Reason for Visit * Reason Comments Annual Exam PE needed for work; pt needs results of her TB test Encounter Details Date Type Department Care Team (Late st Contact Info) Description 05/02/2024 9:45 AM EST Office Visit [facility] [address] [place] [address] Jeffery Navarrete CNP [address] [place] [address] Routine screening for STI (sexually transmitted infection) (Primary Dx); Routine adult health maintenance; Nausea; Encounter for immunization; Viral upper respiratory tract infection; Breast pain Social History Tobacco Use Types Packs/Day Years [...] PM EDT documented as of this encounter Last Filed Vital Signs Vital Sign Reading Time Taken Comments Blood Pressure 138/94 05/02/2024 9:37 AM EST Pulse 88 05/02/2024 9:37 AM EST Temperature - - Respiratory Rate 20 05/02/2024 9:37 AM EST Oxygen Saturation 98% 05/02/2024 9:37 AM EST Inhaled Oxygen Concentration - - Weight 85.1 kg (187 lb 9.6 oz) 05/02/2024 9:37 A M EST Height 154.9 cm (5' 1 ) 05/02/2024 9:37 AM EST Body Mass Index 35.45 05/02/2024 9:37 AM EST documented in this encounter Progress Notes * Jeffery Navarrete CNP - 05/02/2024 9:45 AM EST Subjective: Orin Farr is a 28 y.o. female who presents to the office for a physical exam. PCP Brittaney Rao NP. Denies recent hospitalization and injury Interim history: -Pt reports she had a miscarriage in January 2024. Her and her partner were trying to get at this time. After this resolved she said she has been having some menstrual irregularities since.Her first menstrual period after this event came late on April 04. She is still waiting for hermenstrual cycle to begin this month. She is endorsing PMS sx. Current concerns: Reporting Cough, congestion, sore throat and intermittent SOB x3 days, denies fever, chills, nausea, vomiting, myalgias. Reporting L breast pain constantly around aeroeloa that started 2-3 years afo, denies skin changes,denies swelling, denies redness. Experienced some milk coming from left nipple. Says she was her most recent child in the past but stopped over a year ago but was still experiencing milk supply up until 1 month ago. Denies feeling a mass, but reports pain. Reporting nausea when she eats certain foods, denies vomiting, says she still eats 2-3 meals a day with small snacks. She said she thinks it started in February. She has a previous hx of miscarriage and has f/u planned next week with OBGYN to ensure process was complete. Patient Active Problem List Diagnosis History of section History of delivery Class 2 obesity without serious comorbidity with body mass index (BMI) of 35.0 to 35.9 in adult Routine screening for STI (sexually transmitted infection) Menorrhagia with regular cycle Routine adult health maintenance Screening-pulmonary TB Nausea Viral upper respiratory tract infection Breast pain Encounter for immunization Past Surgical History: Procedure Laterality Date BREAST SURGERY Bilateral 2015 reduction SECTION, CLASSIC CHOLECYSTECTOMY Family History Problem Relation Name Age of Onset Diabetes Maternal Grandmother Diabetes Other aunt Hypertension Other aunt Social History Living situation: has safe secure housing Employment/Education: [employer] services Diet/exercise: Substance use: -alcohol : none -tobacco : none -opioids : none Sexual activity: yes, AMAB, safe and supportive Contraception: barrier methods sometimes, trying for Mental health: Patient Health Questionnaire-9 Score: 0 (05/02/2024 9:40 AM) LMP: March was late, had miscarriage in January, was expecting period March 22, didn't get period until April 04, Experiencing PMS today Allergies Allergen Reactions Ceftriaxone Anaphylaxis Review of Systems Constitutional: Positive for fatigue. Negative for appetite change, chills, fever and unexpected weight change. HENT: Positive for congestion, sore throat and voice change. Negative for ear discharge, ear pain, sinus pressure, sinus pain and trouble swallowing. Eyes: Negative for pain, redness and visual disturbance. Respiratory: Positive for cough and shortness of breath. Negative for chest tightness and wheezing. Cardiovascular: Negative for chest pain and palpitations. Gastrointestinal: Positive for nausea. Negative for abdominal distention, abdominal pain, diarrhea and vomiting. Musculoskeletal: Negative for myalgias. Skin: Negative. Neurological: Positive for headaches. Negative for dizziness, tremors and weakness. Psychiatric/Behavioral: Negative. Vitals: 05/02/24 0937 BP: (!) 138/94 BP Location: Right arm Patient Position: Sitting BP Cuff Size: Adult Pulse: 88 Resp: 20 SpO2: 98% Weight: 187 lb 9.6 oz (85.1 kg) Height: 5' 1 (1.549 m) Physical Exam Constitutional: Appearance: Normal appearance. She is normal weight. HENT: Head: Normocephalic and atraumatic. Right Ear: Tympanic membrane, ear canal and external ear normal. There is no impacted cerumen. Left Ear: Tympanic membrane, ear canal and external ear normal. There is no impacted cerumen. Nose: Congestion present. No rhinorrhea. Mouth/Throat: Mouth: Mucous membranes are moist. Pharynx: Oropharynx is clear. No oropharyngeal exudate or posterior oropharyngeal erythema. Eyes: General: Right eye: No discharge. Left eye: No discharge. Extraocular Movements: Extraocular movements intact. Pupils: Pupils are equal, round, and reactive to light. Cardiovascular: Rate and Rhythm: Normal rate and regular rhythm. Pulses: Normal pulses. Heart sounds: Normal heart sounds. No murmur heard. No friction rub. No gallop. Pulmonary: Effort: Pulmonary effort is normal. No respiratory distress. Breath sounds: Normal breath sounds. No wheezing or rales. Chest: Breasts: Right: Normal. No swelling, bleeding, inverted nipple, mass, nipple discharge, skin change or tenderness. Left: Tenderness present. No swelling, bleeding, inverted nipple, mass, nipple discharge or skin change. Abdominal: General: Bowel sounds are normal. There is no distension. Palpations: Abdomen is soft. There is no mass. Tenderness: There is no abdominal tenderness. There is no guarding or rebound. Hernia: No hernia is present. Musculoskeletal: General: No swelling or tenderness. Normal range of motion. Cervical back: Neck supple. Lymphadenopathy: Cervical: No cervical adenopathy. Upper Body: Right upper body: No supraclavicular or axillary adenopathy. Left upper body: No supraclavicular or axillary adenopathy. Skin: General: Skin is warm and dry. Capillary Refill: Capillary refill takes less than 2 seconds. Coloration: Skin is not jaundiced. Neurological: General: No focal deficit present. Mental Status: She is alert and oriented to person, place, and time. Cranial Nerves: No cranial nerve deficit. Sensory: No sensory deficit. Motor: No weakness. Coordination: Coordination normal. Gait: Gait normal. Deep Tendon Reflexes: Reflexes normal. Psychiatric: Mood and Affect: Mood normal. Behavior: Behavior normal. Thought Content: Thought content normal. Judgment: Judgment normal. Problem List Items Addressed This Visit Routine screening for STI (sexually transmitted infection) - Primary Current Assessment & Plan Pt due for hep c and hiv screening, will place orders today Relevant Orders Hepatitis C Antibody with Reflex to HCV, RNA, Quantitative, Real-Time PCR HIV-1/2 Antigen and Antibodies, Fourth Generation, with Reflexes Routine adult health maintenance Current Assessment & Plan Pt due for routine blood work-see orders Pt due for routine eye exam, referral provided to [facility] center Pt due for hep b flu and covid vaccinations, will proceed with flu and hep today Pt due for Tb reading, orders placed. Pt due for pap smear, has obgyn appt next week and will plan to do it there. Pt will make f/u prn if pap still needed or for any other conditions. Relevant Orders Lipid Panel, Standard Hemoglobin A1c Referral to [facility] Nausea Current Assessment & Plan Pt has intermittent nausea when she eats certain foods Will send zofran rx to take prn for nausea Relevant Medications ondansetron (Zofran) 4 MG tablet Viral upper respiratory tract infection Current Assessment & Plan All in office rapid testing negative Will send mucinex for congestion Advised pt to drink ample fluids and to practice appropriate hand hygiene Will RTC if symptoms worsen or do not resolve in 1 week. Relevant Medications guaiFENesin (Mucinex) 600 MG 12 hr tablet Other Relevant Orders POCT Rapid Covid-19 DIAZ ID NOW (Completed) POCT Rapid Influenza B OSOM (Completed) POCT Rapid Influenza A OSOM (Completed) POCT Rapid Strep A OSOM (Completed) Breast pain Current Assessment & Plan Physical exam nl, no acute abnormalities Suspicion for possible plugged milk duct or cyclical mastalgia d/t upcoming period. Pt plans to f/u with obgyn next week and she plans to let them know about her breast concerns for further workup Recommended imaging with breast u/s for further investigation Encounter for immunization Relevant Orders FLU VACCINE TRIVALENT (Fluarix) 6 mo + (Completed) HEPATITIS B VACCINE ADULT 20 yrs + (Completed) Routine Screening and Health Maintenance Optometry: Yes Dentist: Yes , Leela duarte Lab Review: orders written for new lab studies as appropriate; see orders Routine Cancer Screening Cervical CA: pap due in july Current Outpatient Medications Medication Sig Dispense Refill guaiFENesin (Mucinex) 600 MG 12 hr tablet Take 2 tablets (1,200 mg) by mouth 2 times daily. Do not crush, chew, or split. 120 tablet 11 ondansetron (Zofran) 4 MG tablet Take 2 tablets (8 mg) by mouth every 8 (eight) hours if needed fornausea or vomiting for up to 7 days. 20 tablet 0 No current facility-administered medications for this visit. Immunization History Administered Date(s) Administered Hep B, adult 03/01/2023, 05/02/2024 Influenza injectable quadrivalent preservative free 03/01/2023 Influenza, seasonal, injectable, preservative free 05/02/2024 Pfizer Covid-19 Vaccine 12+ 03/01/2023 Tdap 08/18/2021 [facility] STOCK SPECULATOR Attestation STOCK SPECULATOR Resident Attestation: Patient was seen and evaluated by Jeffery Navarrete CNP, in collaboration with Sukhdev Hernandez MD who has reviewed my assessment and plan. I, Sukhdev Hernandez MD, have reviewed the resident's note and agree with the assessment & plan of care as documented above. documented in this encounter Miscellaneous Notes * Assessment & Plan Note - Jeffery Navarrete CNP - 05/02/2024 10:42 AM EST Associated Problem(s): Viral upper respiratory tract infection All in office rapid testing negative Will send mucinex for congestion Advised pt to drink ample fluids and to practice appropriate hand hygiene Will RTC if symptoms worsen or do not resolve in 1 week. * Assessment & Plan Note - Jeffery Navarrete CNP - 05/02/2024 10:41 AM EST Associated Problem(s): Breast pain Physical exam nl, no acute abnormalities Suspicion for possible plugged milk duct or cyclical mastalgia d/t upcoming period. Pt plans to f/u with obgyn next week and she plans to let them know about her breast concerns for further workup Recommended imaging with breast u/s for further investigation * Assessment & Plan Note - Jeffery Navarrete CNP - 05/02/2024 10:17 AM EST Associated Problem(s): Nausea Pt has intermittent nausea when she eats certain foods Will send zofran rx to take prn for nausea * Assessment & Plan Note - Jeffery Navarrete CNP - 05/02/2024 10:16 AM EST Associated Problem(s): Routine adult health maintenance Pt due for routine blood work-see orders Pt due for routine eye exam, referral provided to [facility] center Pt due for hep b flu and covid vaccinations, will proceed with flu and hep today Pt due for Tb reading, orders placed. Pt due for pap smear, has obgyn appt next week and will plan to do it there. Pt will make f/u prn if pap still needed or for any other conditions. * Assessment & Plan Note - Jeffery Navarrete CNP - 05/02/2024 10:14 AM EST Associated Problem(s): Routine screening for STI (sexually transmitted infection) Pt due for hep c and hiv screening, will place orders today documented in this encounter Plan of Treatment Upcoming Encounters Date Type Department Care Team (Late st Contact Info) Description 06/04/2024 9:15 AM EDT Procedure Visit [facility] [address] [place] [phone] Jeffery Navarrete CNP [address] [place], [place] [phone] Scheduled Orders Name Type Priority Associated Diagnoses Orde r Schedule Lipid Panel, Standard Lab Routine Routine adult health maintenance Expected: 05/02/2024 (Approximate), Expires: 04/28/2025 Hepatitis C Antibody with Reflex to HCV, RNA, Quantitative, Real-Time PCR Lab Routine Routine screening for STI (sexually transmitted infection) Expected: 05/02/2024, Expires: 05/02/2025 HIV-1/2 Antigen and Antibodies, Fourth Generation, with Reflexes Lab Routine Routine screening for STI (sexually transmitted infection) Expected: 05/02/2024 (Approximate), Expires: 05/02/2025 Hemoglobin A1c Lab Routine Routine adult health maintenance Expected: 05/02/2024 (Approximate), Expires: 05/02/2025 Scheduled Referrals Name Type Priority Associated Diagnoses Orde r Schedule Referral to [facility] Outpatient Referral Routine Routine adult health maintenance Expected: 05/02/2024 (Approximate), Expires: 05/02/2025 documented as of this encounter Procedures Procedure Name Priority Date/Time Associated Diagnosis Comments POCT COVID-19 AG DIAZ ID NOW Routine 05/02/2024 10:33 AM EST Viral upper respiratory tract infection POCT INFLUENZA B Routine 05/02/2024 10:3 3 AM EST Viral upper respiratory tract infection POCT INFLUENZA A Routine 05/02/2024 10:3 3 AM EST Viral upper respiratory tract infection POCT RAPID STREP A Routine 05/02/2024 10 :33 AM EST Viral upper respiratory tract infection documented in this encounter Results * POCT Rapid Strep A OSOM (05/02/2024 10:33 AM EST) [facility] Rapid Strep A Screen Negative Negative, None Detected QC Media Lot # [id number] Lot# Expiration Date ,025 Swab 05/02/2024 10:3 3 AM EST Result [facility] POINT OF CARE TEST ENTER/ EDIT ORDERABLES Final Result * POCT Rapid Influenza A OSOM (05/02/2024 10:33 AM EST) [facility] Rapid Influenza A Ag Negative Negative, Indeterminate QC Media Lot # [id number] Lot# Expiration Date ,025 Swab Nasopharyngeal structure / Unknown 05/02/2024 10:33 AM EST Result [facility] POINT OF CARE TEST ENTER/ EDIT ORDERABLES Final Result * POCT Rapid Influenza B OSOM (05/02/2024 10:33 AM EST) [facility] Rapid Influenza B Ag Negative Negative, Indeterminate QC Media Lot # [id number] Lot# Expiration Date ,025 Swab 05/02/2024 10:3 3 AM EST Result [facility] POINT OF CARE TEST ENTER/ EDIT ORDERABLES Final Result * POCT Rapid Covid-19 DIAZ ID NOW (05/02/2024 10:33 AM EST) [facility] Coronavirus Antigen PCR Negative Negative, Indeterminate, None Detected, Invalid, Specimen unsatisfactory for evaluation, Weakly Positive QC Media Lot # [id number] Lot# Expiration Date 3,026 Swab 05/02/2024 10:3 3 AM EST [facility] POINT OF CARE TEST ENTER/ EDIT ORDERABLES Final Result documented in this encounter Visit Diagnoses Diagnosis Routine screening for STI (sexually transmitted infection)- Primary Screening examination for venereal disease Routine adult health maintenance Nausea Nausea alone Encounter for immunization Viral upper respiratory tract infection Acute upper respiratory infections of unspecified site Breast pain Mastodynia documented in this encounter Additional Health Concerns Assessment Noted Time PHQ-9 Depression Total Score: 0 05/02/19 25 9:40 AM EST documented as of this encounter Care Teams Risk Compliance Analyst Relationship Specialty Start Date End Date Brittaney Rao NP [address] [place] [address] PCP - General Family Medicine 02/28/23 documented as of this encounter
--- OUTSIDE RECORDS SUMMARY | 2024-05-16 13:36 | XMS_ITS | Encounter Summary ---
Author Organization [employer] Address [address] [facility] [address] [place] [address] Care Team Providers Care Senior Controls Technician Name Role Phone Brittaney Rao NP Primary Care Provider [phone] Encounter Details Date Type Department Care Team ([facility] st Contact Info) Description 02/28/2023 Abstract [facility] [address] [place] [address] Brittaney Rao NP [address] [place] [address] Social History Tobacco Use Types Packs/Day Years Used Date Smoking Tobacco: Never Smokeless Tobacco: Never Alcohol Use Standard Drinks/Week Comments Yes 0 (1 standard drink = 0.6 oz pure alcohol) socially about once a month 3 drinks Depression Answer Date Recorded Patient Health Questionnaire-9 Score 0 02/28/2023 Patient Health Questionnaire-9 Score 0 02/28/2023 Last PHQ-9: Questionnaire Data Not on file 1 05/01/2022 Housing Stability Answer Date Recorded What is your housing situation today? I have rasheeda blount 02/21/[address] you li ve. Do you have problems with any of the following? None of the above 02/21/2023 Food Insecurity Answer Date Recorded Within the past 12 months, y ou worried that your food would run out before you got money to buy more: Never True 02/21/2023 Within the past 12 months,th e food you bought just didn't last and you didn't have enough money to get more: Never True Transportation Answer Date Recorded In the past 12 months, has l ack of transportation kept you from medical appts, meetings, work or from getting things needed for daily living? No 02/21/2023 Utilities Answer Date Recorded In the past 12 months, has t he electric, gas, oil or water company threatened to shut off services in your home? No 02/21/2023 Depression Answer Date Recorded Patient Health Questionnaire-2 Score 0 02/28/2023 Comments Unknown Sex and Gender Information Value Date Recorded Sex Assigned at Female 11/15/2022 1:15 PM EDT Legal Sex Female 1:13 PM EDT Gender Identity Female 11/15/2022 1:15 PM EDT Sexual Orientation Don't know 11/15/2022 1: 15 PM EDT documented as of this encounter Plan of Treatment Upcoming Encounters Date Type Department Care Team (Late st Contact Info) Description 06/04/2024 9:15 AM EDT Procedure Visit [facility] [address] [place] [address] Jeffery Navarrete CNP [address] [place] [address] documented as of this encounter Visit Diagnoses Not on filedocumented in this encounter Additional Health Concerns Assessment Noted Time PHQ-9 Depression Total Score: 0 02/29/20 2:18 PM EST documented as of this encounter Care Teams Senior Controls Technician Relationship Specialty Start Date End Date Brittaney Rao NP [address] [place], [place] [phone] PCP - General Family Medicine 02/28/23 documented as of this encounter
--- OUTSIDE RECORDS SUMMARY | 2024-05-16 13:36 | XMS_ITS | Encounter Summary ---
Author Organization [employer] Address [address] [facility] [address] [address] [place] [address] Care Team Providers Care Mottler Operator Name Role Phone Brittaney Rao NP Primary Care Provider [phone] Reason for Visit * Reason Onset Date Comments Chart Prep 04/29/2024 Encounter Details Date Type Department Care Team ([facility] st Contact Info) Description 04/29/2024 Telephone [facility] [address] [place] [address] Brittaney Rao NP [address] [place] [address] Chart Prep Social History Tobacco Use Types [...] Recorded Patient Health Questionnaire-2 Score 0 02/28/2023 Internet Access Answer Date Recorded Internet Access [...] Telephone Encounter - Terry Graham [place] - 04/29/2024 9:23 AM EST Chart Prep Labs: done Images: not applicable Vaccines due: yes HEP B Flu Covid Referrals: complete Screenings: STI screening HIV HEP C Depression Tobacco PAP Overdue care gaps: PHQ-9 Sbrit Levar 7 documented in this encounter Plan of Treatment Upcoming Encounters Date Type Department Care Team (Late st Contact Info) Description 06/04/2024 9:15 AM EDT Procedure Visit [facility] [address] [place] [address] Jeffery Navarrete CNP [address] [place] [address] documented as of this encounter Visit Diagnoses Not on filedocumented in this encounter Additional Health Concerns Assessment Noted Time PHQ-9 Depression Total Score: 0 02/29/20 2:18 PM EST documented as of this encounter Care Teams Mottler Operator Relationship Specialty Start Date End Date Brittaney Rao NP [address] [place] [address] PCP - General Family Medicine 02/28/23 documented as of this encounter
--- OUTSIDE RECORDS SUMMARY | 2024-05-16 13:36 | XMS_ITS | Encounter Summary ---
Author Organization [employer] Address [address] [facility] [address] [place] [address] Care Team Providers Care Debone Processing Supervisor Name Role Phone Brittaney Rao NP Primary Care Provider [phone] Reason for Visit * Reason Onset Date Comments New Patient 11/15/2022 Encounter Details Date Type Department Care Team ([facility] st Contact Info) Description 11/15/2022 Telephone [facility] [address] [place] [address] Moody Lynn MD [address] [place] [address] New Patient Social History Tobacco Use Types Packs/Day Years Used Date Smoking Tobacco: Never Assessed Comments Unknown Sex and Gender Information Value Date Recorded Sex Assigned at Female 11/15/2022 1:15 PM EDT Legal Sex Female 1:13 PM EDT Gender Identity Female 11/15/2022 1:15 PM EDT Sexual Orientation Don't know 11/15/2022 1: 15 PM EDT documented as of this encounter Miscellaneous Notes * Telephone Encounter - Asha Clark - 01/29/2023 9:46 AM EST TC from pt to schedule PACKAGING SALES Appt. Pt Demographics and Insurance were verified. Pt reports no medical conditions and is not taking any medications. Pt was given appt with NARCISA Rao on 02/28/2023 @ 2:00 pm. Letter will be sent with reminder of appt. * Telephone Encounter - Asha Clark - 12/28/2022 2:53 PM EDT New Patients Par Asha Williamson called to schedule New patient appt, pt did not answer left voicemail to give a call at [phone]. * Telephone Encounter - Asha Clark - 11/15/2022 1:17 PM EDT Pt has been transfer over to wait list for PACKAGING SALES. EFFECTIVE SINCE 11/15/2022 documented in this encounter Plan of Treatment Upcoming Encounters Date Type Department Care Team (Late st Contact Info) Description 06/04/2024 9:15 AM EDT Procedure Visit [facility] [address] [place], [place] [phone] Jeffery Navarrete CNP [address] [place], [place] [phone] documented as of this encounter Visit Diagnoses Not on filedocumented in this encounter Care Teams Debone Processing Supervisor Relationship Specialty Start Date End Date Brittaney Rao NP [address] [place], [place] [phone] PCP - General Family Medicine 02/28/23 documented as of this encounter
--- OUTSIDE RECORDS SUMMARY | 2024-05-16 13:36 | XMS_ITS | Encounter Summary ---
Author Organization [employer] Address [address] [place] [address] Care Team Providers Care Computed Tomography Scanner Operator Name Role Phone Brittaney Rao NP Primary Care Provider [phone] Reason for Visit * Reason Comments Pre-visit Planning SDOH negative, Tobac co screening negative. Encounter Details Date Type Department Care Team ([facility] Contact Info) Description 04/25/2024 Patient Outreach [facility] [address] [place] [address] Brittaney Rao NP [address] [place] [address] Pre-visit Planning (SDOH negative, Tobacco screening negative.) Social History Tobacco Use Types Packs/Day Years [...] PM EDT documented as of this encounter Progress Notes * Vane Lira - 04/25/2024 10:53 AM EST VANIA Delgado placed successful outbound call to patient for pre-visit planning. Patient name and confirmed. Patient confirms appt date and time, and has transportation arrangements. Biggest concern for appointment at this time is no concerns. Appropriate screenings completed in anticipation ofappointment. documented in this encounter Plan of Treatment Upcoming Encounters Date Type Department Care Team (Late st Contact Info) Description 06/04/2024 9:15 AM EDT Procedure Visit [facility] [address] [place] [address] Jeffery Navarrete CNP [address] [place] [address] documented as of this encounter Visit Diagnoses Not on filedocumented in this encounter Additional Health Concerns Assessment Noted Time PHQ-9 Depression Total Score: 0 02/29/20 2:18 PM EST documented as of this encounter Care Teams Computed Tomography Scanner Operator Relationship Specialty Start Date End Date Brittaney Rao NP [address] [place] [address] PCP - General Family Medicine 02/28/23 documented as of this encounter
--- OUTSIDE RECORDS SUMMARY | 2024-05-16 13:36 | XMS_ITS | Encounter Summary ---
Author Organization [employer] Address [address] [place] [address] Care Team Providers Care Court Monitor Name Role Phone Brittaney Rao NARCISA Primary Care Provider [phone] Encounter Details Date Type Department Care Team (Latest Contact Info) Description 05/02/2024 Travel Social History Tobacco Use Types Packs/Day Years [...] your housing situation today? I have rasheeda bloutn 04/25/[address] you li [...] 9:15 AM EDT Procedure Visit [facility] [address] [place], [place] [phone] Jeffery Navarrete CNP [address] [place] [address] documented as of this encounter Visit Diagnoses Not on filedocumented in this encounter Additional Health Concerns Assessment Noted Time PHQ-9 Depression Total Score: 0 05/02/19 25 9:40 AM EST documented as of this encounter Care Teams Court Monitor Relationship Specialty Start Date End Date Brittaney Rao NP [address] [place], [place] [phone] PCP - General Family Medicine 02/28/23 documented as of this encounter
--- OUTSIDE RECORDS SUMMARY | 2024-05-16 13:37 | XMS_ITS | Encounter Summary ---
Author Organization [employer] Address [address] [facility] [address] [place] [address] Care Team Providers Care Hand Sole Sewer Name Role Phone Brittaney Rao NP Primary Care Provider [phone] Encounter Details Date Type Department Care Team ([facility] st Contact Info) Description 04/05/2023 Abstract [facility] [address] [place] [address] Brittaney Rao NP [address] [place] [address] Social History Tobacco Use Types Packs/Day Years [...] Description 06/04/2024 9:15 AM EDT Procedure Visit [facility] [address] [place] [address] Jeffery Navarrete CNP [address] [place] [address] documented as of this encounter Visit Diagnoses Not on filedocumented in this encounter Additional Health Concerns Assessment Noted Time PHQ-9 Depression Total Score: 0 02/29/20 2:18 PM EST documented as of this encounter Care Teams Hand Sole Sewer Relationship Specialty Start Date End Date Brittaney Rao NP [address] [place], [place] [phone] PCP - General Family Medicine 02/28/23 documented as of this encounter
== END 2024-05-16 13:13 | disposition home or self-care (01) ==
LOC: HO.ED 13:08
PROVIDERS: Emergency Medicine; Nurse Practitioner Family; Emergency Provider Emergency Medicine
DX: O26.91 Pregnancy related conditions, unspecified, first trimester (principal); Z3A.01 Less than 8 weeks gestation of pregnancy; M54.50 Low back pain, unspecified; R10.2 Pelvic and perineal pain; J10.1 Influenza due to other identified influenza virus with other respiratory manifestations; Z03.818 Encounter for observation for suspected exposure to other biological agents ruled out
CPT/HCPCS: 0241U; 81025; 99282; 99283

== ENCOUNTER 2024-10-29 17:34 | Emergency (ER) | payer MEDICAID, SELFPAY ==
[2024-10-29 17:36] VITALS: BP 118/67; PULSE 87; RESP 18; TEMP 36.7; O2SAT 98; BMI 34.0
--- NOTE | 2024-10-29 17:36 | ED_ITS ---
HPI - Abdominal Pain General Chief Complaint: Abdominal Pain Stated Complaint: dizzy/sweaty/nauseous Time Seen by Provider: 10/29/24 23:55 History of Present Illness ED Provider: Eriberto Teague MD HPI narrative: This is a 29-year-old female who reports to me generalized malaise slight dizziness occasionally breaking out sweats and mild bilateral upper back discomfort without injury. Some urinary frequency. She later in the interview tells me that she took 4 tests home urine tests that were positive or had faint lines over the past 4 days. She had a depot contraceptive shot in July and has not had her period since except for minimal spotting maybe a month ago. No vaginal bleeding currently no lower abdominal cramping. She thought perhaps she was . Related Data Previous Rx's ?Medication ?Instructions ?Recorded acetaminophen 500 mg tablet 500 mg PO Q6H PRN fever or pain 06/29/22 (Tylenol Extra Strength) #30 tabs acetaminophen 500 mg tablet 500 mg PO Q6H PRN fever or pain 08/20/23 (Tylenol Extra Strength) #14 tabs cyclobenzaprine 5 mg tablet 5 mg PO Q8H PRN pain (scal e score 08/20/23 7-10) 5 days #14 tabs lidocaine 5 % topical patch 1 patch topical DAILY PRN pain #30 08/20/23 (Lidoderm) ea naproxen 500 mg tablet 500 mg PO BID PRN pain 10 da ys #20 08/20/23 tabs oseltamivir 75 mg capsule (Tamiflu) 75 mg PO BID 5 day s #10 caps 05/16/24 Allergies Allergy/AdvReac Type Severity Reaction Status Date / Time ceftriaxone (From Rocephin) Allergy Angioedema Verified 10/29/24 17:37 [facility] Past Medical History Medical History History of delivery COVID-19 vaccination declined Healthy adult Surgical History History of section Social History Social History Alcohol intake: current Alcohol intake frequency: holidays/special occasions only Patient Tobacco Use Status: Never used Tobacco Smoked in Last 30 Days: No Use of substances other than those prescribed or required for medical reasons: No Advance Directives: No Advance Directives Information Provided: Yes Do you have a plan to hurt others: No Plan Current occupational status: unemployed Physical Exam ED Exam Exam: EXAM: Gen: Alert, awake, well appearing, well hydrated. Head: Atraumatic Eyes: Anicteric, Normal conjunctiva. ENT: Moist mucosa, no pallor. ? Neck: Supple. Skin: ?No observable rash or bruising on exposed or examined skin Respiratory: Breathing comfortably, No distress.Clear to auscultation bilaterally, symmetric chest expansion, No wheeze, rales, ronchi. Cardiovascular: Regular rate and rhythm. No murmurs or rub. Well perfused periphery, warm extremities. No edema. ? Abdominal: No focal tenderness. Soft, no objective distension. No palpable masses or obvious organomegaly. ?No guarding, no rebound tenderness or other peritoneal findings. : No flank tenderness. Neuro: Alert. Gross movement of all extremities intact. ? Psych: Calm. Cooperative. MSK: No grossly visible deformity. Vital signs: See flowsheet Vital Signs: Vital Signs - 24 hr 10/29/24 17:36 10/29/24 23:51 10/30/24 01:13 Temperature 98.1 F 98.6 F 98.6 F Pulse Rate 87 64 64 Respiratory Rate 18 16 16 Blood Pressure 118/67 111/65 111/65 Pulse Oximetry 98 100 100 Oxygen Delivery Method Room Air Room Air Room Air BMI result Body Mass Index 34.0 Course Course Course Narrative: This is a Rapid Medical Examination (RME) performed by Noemi Garcia PA-C in triage. Full HPI, ROS, assessment and treatment plan per primary provider in the Main ED. Hx: 29 yo F here for eval of dizziness, nausea, lower back/ lower abdominal pain, frequent urination x a few days. possible chance of - depo shot discontinued in September, has not had her mentrual period yet. Plan: labs, UA Medical Decision Making Medical Decision Making MDM Narrative: Medical Decision Makin-year-old female with generalized malaise and low back pain felt she might be . No vaginal bleeding on depot shot. No difficulty breathing she is afebrile has normal vital signs reassuring lab work and urinalysis. No suggestion of urinary retention doubt kidney stone or pyelonephritis given the urinalysis and overall presentation. Serum beta negative patient was reassured by this Preliminary Favored Differential Diagnosis: UTI, viral syndrome, dehydration, electrolyte derangement, among additional considered etiologies Testing Interpreted Independently: Not Applicable Radiology or Lab testing Results Reviewed: Not Applicable Consults: Not Applicable Independent Historians/External Chart Reviews: Not Applicable Social Determinants of Health Impacting MDM/Planning: Not Applicable Lab Data 10/29/24 17:55 10/29/24 17:55 Labs: Lab Results 10/29/24 Range/Units 17:55 WBC 6.9 (4.8-10.8) X10*3/uL RBC 4.54 (4.20-5.50) X10*6/uL Hgb 13.1 (12.0-16.0) g/dl Hct 38.5 (37.0-47.0) % MCV 84.8 (80.0-98.0) fL MCH 28.9 (27.0-33.0) pg MCHC 34.0 (31.0-35.0) g/dl RDW 12.7 (11.0-16.0) % Plt Count 231 (160-400) X10*3/uL MPV 9.9 (9.4-12.3) fL Immature Gran % (Auto) 0.1 (0.0-0.4) % Neut % (Auto) 51.8 (45-73) % Lymph % (Auto) 39.9 (20-40) % Pecos % (Auto) 6.8 (2-11) % Eos % (Auto) 1.0 (0-4) % Baso % (Auto) 0.4 (0-2) % Lymph # (Auto) 2.8 (1.2-4.9) X10*3/uL [place] # (Auto) 0.5 (0.1-1.2) X10*3/uL Eos # (Auto) 0.1 (0.0-0.4) X10*3/uL Baso # (Auto) 0.0 (0.0-0.2) X10*3/uL Abs Immat Gran (auto) 0.01 (0.00-0.03) X10*3/uL Absolute Neuts (auto) 3.6 (2.0-8.3) x10*3/uL Absolute Nucleated RBC 0.000 (0.0-0.012) X10*3/uL Nucleated RBC % (auto) 0.0 (0.0-0.2) /100WBC Sodium 140 (135-145) mmol/L Potassium 3.7 (3.3-5.1) mmol/L Chloride 109 H (96-108) mmol/L Carbon Dioxide 25 (22-29) mmol/L Anion Gap 10 L (12-20) BUN 15 (9-16) mg/dL Creatinine 1.03 (0.5-1.4) mg/dL Estim Creat Clear Calc 78.0 Estimated GFR > 60 Random Glucose 94 (60-115) mg/dL Calcium 9.2 (8.4-10.2) mg/dL Magnesium 1.9 (1.6-2.6) mg/dL Total Bilirubin 0.4 (0.0-1.0) mg/dL AST 32 H (5-31) U/L ALT 45 H (0-31) U/L Alkaline Phosphatase 65 (39-117) U/L Total Protein 7.4 (6.5-8.0) g/dL Albumin 4.5 (3.5-5.0) g/dL Lipase 56 (8-78) U/L Beta HCG, Quant < 2 mIU/mL Urine Color Yellow Urine Appearance Clear Urine pH 6.0 (5.0-9.0) Ur Specific [place] <= 1.005 (1.005-1.025) Urine Protein Negative (Neg-Trace) mg/dL Urine Glucose (UA) Negative (Negative) mg/dL Urine Ketones Negative (Negative) mg/dL Urine Blood Negative (Negative) Urine Nitrite Negative (Negative) Ur Leukocyte Esterase Negative (Negative) Urine Test NEGATIVE (NEGATIVE) Discharge Plan Discharge Clinical Impression: Malaise Patient Disposition: Home, Self-Care Instructions: Fatigue (ED) Additional Instructions: _ DISCHARGE DIAGNOSES: Malaise and fatigue unclear cause HISTORY OF PRESENTATION: ?Tiredness back pain EMERGENCY DEPARTMENT COURSE,TESTS, TREATMENTS: While in the ED today you had lab work including blood count kidney function electrolytes test all normal and reassuring and your test was negative DISCHARGE MEDICATIONS: ?[We have made no changes to your regular medication regimen] FOLLOW-UP: ?Call your primary or general physician soon as possible to discuss your symptoms, your ED visit and to discuss follow up plans PCP INSTRUCTIONS ?& RETURN PRECAUTIONS: If any symptoms change first call your primary physician, if it is after-hours your primary doctors office should have a provider senior analytic consultant you can speak with. If the symptoms are severe or very concerning to you then call 911 or return to the ED. Repeat outpatient test in 1 week Eriberto Teague MD Emergency Physician [facility] Prescriptions: No Action acetaminophen [Tylenol Extra Strength] 500 mg tablet 500 mg PO Q6H PRN (Reason: fever or pain) Qty: 14 0RF lidocaine [Lidoderm] 5 % adhesive patch,medicated 1 patch topical DAILY MDD remove after 12 hours PRN (Reason: pain) Qty: 30 0RF Rx Instructions: leave on most painful area for up to 12 hrs naproxen 500 mg tablet 500 mg PO BID PRN (Reason: pain) 10 Days Qty: 20 0RF cyclobenzaprine 5 mg tablet 5 mg PO Q8H PRN (Reason: pain (scale score 7-10)) 5 Days Qty: 14 0RF acetaminophen [Tylenol Extra Strength] 500 mg tablet 500 mg PO Q6H PRN (Reason: fever or pain) Qty: 30 0RF oseltamivir [Tamiflu] 75 mg capsule 75 mg PO BID 5 Days Qty: 10 0RF Interventions: ED Discharge Assessment Last Done: 10/30/24 01:13 Discharge Date/Time: 10/30/24 01:00 Print Language: Kenyan
[2024-10-29 18:03] LABS: MANUAL DIFF FLAG NO
[2024-10-29 18:07] LABS: Hematocrit 38.5 % (37.0-47.0); Hemoglobin 13.1 g/dl (12.0-16.0); Imm Gran Abs Auto 0.01 X10*3/uL (0.00-0.03); Imm Gran Pct Auto 0.1 % (0.0-0.4); Lymphocytes Absolute Auto 2.8 X10*3/uL (1.2-4.9); Mean Corpuscular HGB Conc 34.0 g/dl (31.0-35.0); Mean Corpuscular Hemoglobin 28.9 pg (27.0-33.0); Mean Corpuscular Volume 84.8 fL (80.0-98.0); NRBC Abs Auto 0.000 X10*3/uL (0.0-0.012); NRBC Pct Auto 0.0 /100WBC (0.0-0.2); Platelet Count 231 X10*3/uL (160-400); Red Blood Count 4.54 X10*6/uL (4.20-5.50); White Blood Count 6.9 X10*3/uL (4.8-10.8)
[2024-10-29 18:11] LABS: Appearance Urine Clear; Glucose Urine UA Negative (Negative); PH 6.0 (5.0-9.0); Specific Gravity - Urine <= 1.005 (1.005-1.025)
[2024-10-29 18:12] LABS: UPreg QC Valid YES
[2024-10-29 18:31] LABS: Alanine Aminotransferase 45 U/L (0-31); Albumin Level 4.5 g/dL (3.5-5.0); Alkaline Phosphatase 65 U/L (39-117); Anion Gap 10 (12-20); Aspartate Amino Transferase 32 U/L (5-31); Blood Urea Nitrogen 15 mg/dL (9-16); Calcium 9.2 mg/dL (8.4-10.2); Carbon Dioxide 25 mmol/L (22-29); Chloride 109 mmol/L (96-108); Creatinine Clr Calc Pharmacy 78.0; Estimated Glomerular Filt Rate > 60; Lipase 56 U/L (8-78); Magnesium 1.9 mg/dL (1.6-2.6); Potassium 3.7 mmol/L (3.3-5.1); Sodium 140 mmol/L (135-145); Total Protein 7.4 g/dL (6.5-8.0)
[2024-10-29 23:51] VITALS: BP 111/65; PULSE 64; RESP 16; TEMP 37; O2SAT 100
--- OUTSIDE RECORDS SUMMARY | 2024-10-29 23:55 | XMS_ITS | Patient Health Record ---
Author Organization [facility] Address [address] [place] [address] Care Team Providers Care Hairspring Ii Inspector Name Role Phone LEISACAROLE GOMEZEB Unavailable [phone] Andrew Jean Baptiste Unavailable Unavailable Allergies Allergen (clinical drug ingredient) Drug/Non Drug Allergy documented on EMR Reaction Allergy Type Onset Date Status Rocephin shortness of breath Drug Allergy Active Reason For Referral No Information Problems Problem Type SNOMED Code ICD Code Onset Dates Problem Status W/U Status Risk Notes Problem Genitourinary chlamydia infection (274987049) Chlamydial infection of genitourinary tract, unspecified (A56.2) 019 Active confirmed Problem Cough (90767346) Cough (R05) Active confirmed Problem Diarrhea (66091356) Diarrhea, unspecified (R19.7) 020 Active confirmed Problem Gynecological examination normal (879425166390062) Encounter for gynecological examination (general) (routine) without abnormal findings (Z01.419) 018 Problem resolved confirmed Problem Encounter for removal of intrauterine contraceptive device (Z30.432) 018 Problem resolved confirmed Problem test positive (026144088) Encounter for test, result positive (Z32.01) 019 Problem resolved confirmed Problem First trimester (55416415) Encounter for supervision of other normal , first trimester (Z34.81) 019 Problem resolved confirmed Problem Second trimester (77535449) Encounter for supervision of other normal , second trimester (Z34.82) 019 Active confirmed Problem Third trimester (73307628) Encounter for supervision of other normal , third trimester (Z34.83) Active confirmed Problem state of fetus, 1st trimester (76571356) Encounter for supervision of normal , unspecified, first trimester (Z34.91) Active confirmed Problem Placenta previa partialis (07757024) Partial placenta previa NOS or without hemorrhage, second trimester (O44.22) Active confirmed Problem Recurrent loss, antepartum (O26.21) Problem resolved confirmed Problem First trimester (52075885) First trimester (Z33.1) Active confirmed Problem Contraception care education (929512905) Encounter for other general counseling and advice on contraceptive management (Z30.09) Problem resolved confirmed Problem Post (Z39.2) Problem resolved confirmed Problem Third trimester (88887544) Encounter for supervision of other normal , 3rd trimester (Z34.83) Active confirmed Problem UTI in , first trimester (O23.41) Problem resolved confirmed Problem Encounter for supervision of normal , first trimester (Z34.91) Active confirmed Problem Urinary tract infection (37773725) Urinary tract infection (N39.0) Active confirmed Problem High risk (04958258) Supervision of high risk , third trimester (O09.93) Active confirmed Problem Vaginal candidiasis (57985410) Vaginal candidiasis (B37.3) Problem resolved confirmed Problem Oligohydramnios (50672654) Oligohydramnios (O41.03X0) Active confirmed Problem Low back pain (232518101) Pain in the lower back (M54.5) Active confirmed Problem fluid retention (942339674) fluid retention (P83.30) Active confirmed Problem Partial placenta previa (59935359) Partial placenta previa (O44.20) Active confirmed Problem Encounter for supervision of normal , 3rd trimester (Z34.93) Active confirmed Problem IUD check (356632322) IUD check (Z30.431) Active confirmed Problem Personal history of labor (Z87.51) Problem resolved confirmed Problem Positions of breech presentation - finding (378582913) Positions of breech presentation - finding (O32.1XX1) Problem resolved confirmed Problem Removal of suture (31491327) Encounter for removal of marcelo (Z48.02) Problem resolved confirmed Problem Insertion of intrauterine contraceptive device done (540972455405151) IUD insertion (Z30.430) 018 Problem resolved confirmed Problem Breech presentation (5824980) Breech presentation (O32.1XX1) Problem resolved confirmed Problem with history of previous section, antepartum (O34.211) Active confirmed Problem Uterine size for dates discrepancy (874457793) Uterine size for dates discrepancy (O26.843) Active confirmed Problem Weak movements (151159212) Decreased movement (O36.8130) Active confirmed Problem Dizziness (544493356) Dizziness (R42) Active confirmed Problem Encounter for supervision of normal , third trimester (Z34.93) Active confirmed Problem Pain in pelvis (19107418) Pelvic pain (R10.2) 018 Active confirmed Problem Surveillance of intrauterine device contraception (967911191) Checking of IUD (Z30.431) 018 Problem resolved confirmed Problem Encounter for general counseling on initiation of other contraceptive measures (Z30.013) 018 Problem resolved confirmed Problem Early onset of labor (O60.03) Active confirmed Problem Chlamydial infection (903374299) Chlamydial infection (A74.9) 019 Problem resolved confirmed Problem Encounter for supervision of normal , second trimester (Z34.92) 019 Active confirmed Problem care status (340283444) care and examination immediately after delivery (Z39.0) 018 Problem resolved confirmed Problem High risk (03138870) High risk (O09.90) 017 Active confirmed Problem Breech presentation, antepartum (O32.1XX1) 017 Problem resolved confirmed Problem Vomiting symptom (152366575) Vomiting symptom (R11.10) 01/20/2 020 Active confirmed Problem Decrease in appetite (40766563) Decrease in appetite (R63.0) 020 Active confirmed Problem Abnormal cervical Papanicolaou smear (646045171) Screening for diabetes (Z13.1) 017 Problem resolved confirmed Problem Ovarian cyst (81961253) Ovarian cyst (N83.209) Problem resolved confirmed Plan Of Treatment No Information Insurance Providers Payer Name Payer Address Payer Phone Subscriber Number Group Number Insured Name Patient Relationship to Insured Coverage Start Date Coverage End Date [employer] [facility] [address] [place] [address] [id number] Orin Blanchard Self - patient is the insured 0 Medical (General) History Surgical History Surgery Date(Month/Year) section 06/05/2017 cholecystectomy 07/08/2017 breast reconstruction 07/24/2014 Hospitalization History Reason Date(Month/Year) Kidney Failure 03/2014
[2024-10-30 01:13] VITALS: BP 111/65; PULSE 64; RESP 16; TEMP 37; O2SAT 100
== END 2024-10-30 01:00 | disposition home or self-care (01) ==
PROVIDERS: Physician Assistant Medical; Emergency Provider Emergency Medicine
DX: R10.2 Pelvic and perineal pain (principal); R42 Dizziness and giddiness; R11.0 Nausea; M54.6 Pain in thoracic spine; R53.1 Weakness
CPT/HCPCS: 36415; 80053; 81003; 81025; 83690; 83735; 84702; 85025; 99283; 99284